=== PATIENT | male | born 1985 | race Caucasian/White ===

== ENCOUNTER 2017-10-11 16:00 | Emergency (ER) | payer OTHER ==
[~2017-10-11] VITALS: Ht 172.7 cm; Wt 102.4 kg
[2017-10-11 16:05] VITALS: Ht 172.7 cm; Wt 102.4 kg
--- NOTE | 2017-10-11 16:28 | EMERGENCY ROOM VISIT NOTE ---
History First contact with patient: 16:08 Chief Complaint: ANKLE PAIN Stated Complaint: LEFT ANKLE INJURY, NON WEIGHT BEARING/PAIN-WC History of Present Illness The patient is a 31 year old male who presents to the Emergency Room with complaints of an injury to his left ankle/foot. The patient reports that he was at work and was pinned under a metal pole. He states that his left leg tucked under him and he now has pain in the left leg. He has minimal pain at rest, but reports increased pain with weightbearing. He describes the pain as sharp and rates it a 5/10. He denies any numbness or weakness. He denies any other injuries. Review of Systems A complete 6 point review of systems was reviewed with the patient with pertinent positives and negatives as per history of present illness. All else were negative. Past Medical/Surgical History Medical Problems: (1) No significant active problems Social History Smoking Status: Never Smoker Alcohol Use: occasionally Housing Status: lives with family Occupation Status: employed Physical Exam Vital Signs Date Time Temp Pulse Resp B/P (MAP) Pulse Ox O2 Delivery O2 Flow Rate FiO2 10/11/17 18:20 37.2 92 20 131/77 97 10/11/17 18:06 92 20 131/77 97 Room Air 10/11/17 16:05 37.2 98 20 146/79 97 Room Air Physical Exam VITALS: Vitals are noted on the nurse's note and reviewed by myself. Vital signs stable. GENERAL: This is a 31-year-old male, in no acute distress, nondiaphoretic, well- developed well-nourished. SKIN: No abrasions or lacerations. MUSCULOSKELETAL: No obvious deformity of the left ankle. There is tenderness to palpation to the lateral aspect of the left ankle. Full range of motion of the ankle. NEURO: Patient was alert and oriented to person place and time. Distal sensation intact. Medical Decision & Procedures ER Provider Diagnostic Interpretation: L ANKLE MIN 3 VIEWS ROUTINE DISCUSSION: The bones and joint spaces appear intact. There is no evidence of fracture, dislocation or bony disease. There is no evidence for soft tissue swelling. IMPRESSION: Negative study. L FOOT MIN 3 VIEWS ROUTINE FINDINGS: No acute fracture, dislocation or significant degenerative changes. No opaque foreign body. Mild soft tissue swelling of the ankle. IMPRESSION: Mild soft tissue swelling without fracture. Medications Administered Medications (Trade) Dose Ordered Sig/Oma Route Start Time Stop Time Status Last Admin Dose Admin Ibuprofen (Motrin Tab) 800 mg NOW STAT PO 10/11/17 17:28 10/11/17 17:29 DC 10/11/17 17:35 800 MG Medical Decision Differential diagnosis includes fracture, contusion, sprain, dislocation, among others. The patient was evaluated as above. X-ray of the left ankle and foot was obtained and read by radiology with no acute findings. Patient was placed in a postoperative shoe and instructed on the use of crutches. Conservative measures were discussed with the patient. He was given information for orthopedic follow-up and I recommended calling them if he does not have significant improvement of his symptoms in the next few days. The patient was agreeable to this treatment plan. He verbalized understanding and was discharged home in good condition. Medication Reconcilliation Current Medication List: was personally reviewed by me Blood Pressure Screening Patient's blood pressure: Elevated blood pressure Blood pressure disposition: Elevated BP felt to be situational Impression Primary Impression: Injury of left foot Departure Information Dispostion Home / Self-Care Condition GOOD Referrals No Doctor, Assigned (PCP) Pancho Simpson D.O. Patient Instructions My [facility] Additional Instructions You have been treated in the Emergency Department for a foot/ankle injury. For pain control, you can use the following kwyv-yuy-caxhwxo medicines (if >12 yo): - Regular strength (325mg/tab) Tylenol (acetaminophen) 2 tabs every 4-6 hours as needed. Do not exceed 12 tablets in a 24 hour period. Avoid taking more than 4 grams (4000 mg) of Tylenol per day. This includes any other sources of acetaminophen you may take on a regular basis. - Regular strength (200 mg/tab) Advil (ibuprofen) 1-2 tabs every 4-6 hours as needed. Do not exceed a dose of 3200 mg per day. If this is a recent injury (<24 hrs), ice can be applied to the area of pain for the first 3 days to help decrease pain and inflammation. Wear the postoperative shoe and use the crutches to keep weight off the foot until you are able to bear weight without any discomfort. Contact orthopedics to schedule a follow-up appointment if you are still having pain/difficulty walking in the next 3-4 days. Return to the Emergency Department if your current symptoms worsen despite treatment course outlined above, or if you develop any of the following symptoms : intractable pain despite aforementioned treatment course or new onset of numbness or tingling of the foot. Problem Qualifiers Primary Impression: Injury of left foot Encounter type: initial encounter Qualified Codes: S99.922A - Unspecified injury of left foot, initial encounter
[2017-10-11] MEDS ORDERED: IBUPROFEN 800 MG TAB PO STA (17:28)
--- NOTE | 2017-10-11 17:35 | DIAGNOSTIC IMAGING REPORT ---
L ANKLE MIN 3 VIEWS ROUTINE CLINICAL HISTORY: left ankle and foot injury trauma. Pain. COMPARISON: None. DISCUSSION: The bones and joint spaces appear intact. There is no evidence of fracture, dislocation or bony disease. There is no evidence for soft tissue swelling. IMPRESSION: Negative study. The above report was generated using voice recognition software. It may contain grammatical, syntax or spelling errors. Electronically signed by: Navi Barrera M.D. 10/11/2017 5:33 PM Dictated Date/Time: 10/11/2017 5:33 PM
--- NOTE | 2017-10-11 17:35 | DIAGNOSTIC IMAGING REPORT ---
L FOOT MIN 3 VIEWS ROUTINE HISTORY: 31 years-old Male left ankle and foot injury acute left foot and ankle pain status post injury COMPARISON: None available TECHNIQUE: 3 views of the left foot FINDINGS: No acute fracture, dislocation or significant degenerative changes. No opaque foreign body. Mild soft tissue swelling of the ankle. IMPRESSION: Mild soft tissue swelling without fracture. The above report was generated using voice recognition software. It may contain grammatical, syntax or spelling errors. Electronically signed by: Hamilton Nogueira M.D. 10/11/2017 5:34 PM Dictated Date/Time: 10/11/2017 5:32 PM
[2017-10-11 18:20] VITALS: BP 131/77; PULSE 92; TEMP 37.2; O2SAT 97
== END 2017-10-11 18:21 | disposition home or self-care (01) ==
LOC: C.EDB 16:02 → C.EDD 18:21
DX: S99.922A Unspecified injury of left foot, initial encounter (principal); W23.1XXA Caught, crushed, jammed, or pinched between stationary objects, initial encounter; Y99.0 Civilian activity done for income or pay

== ENCOUNTER 2023-11-21 13:20 | Inpatient (IN) ==
[2023-11-21 14:40] LABS: Basophils # (auto) 0.04 K/uL (0.00-0.20); Basophils % (auto) 0.4 %; Eosinophils # (auto) 0.05 K/uL (0.00-0.50); Eosinophils % (auto) 0.6 %; Hematocrit (blood only) 44.7 % (42.0-52.0); Hemoglobin 15.3 g/dl (14.0-18.0); Immature Granulocytes # (auto) 0.04 K/uL (0.01-0.20); Immature Granulocytes % (auto) 0.4 %; Lymphocytes # (auto) 1.45 K/uL (1.20-3.40); Lymphocytes % (auto) 16.1 %; Mean Corpuscular Hemoglobin 30.2 pg (25.0-34.0); Mean Corpuscular Hgb Conc 34.2 g/dL (32.0-36.0); Mean Corpuscular Volume 88.2 fL (80.0-100.0); Mean Platelet Volume 9.7 fL (9.4-12.4); Monocytes # (auto) 0.64 K/uL (0.11-0.59); Monocytes % (auto) 7.1 %; Neutrophils # (auto) 6.76 K/uL (1.40-6.50); Neutrophils % (auto) 75.4 %; Platelet Count 292 K/uL (130-400); RDW Coefficient of Variation 12.1 % (11.5-14.5); RDW Standard Deviation 39.1 fL (36.4-46.3); Red Blood Count 5.07 M/uL (4.70-6.10); White Blood Count 8.98 K/ul (4.8-10.8)
[2023-11-21 14:40] LABS: Appearance Urine Clear (Clear); Bilirubin Urine Negative (Negative); Blood Urine Negative (Negative); Color Urine Yellow; Glucose Urine UA Negative (Negative); Ketones Urine Negative (Negative); Leukocyte Esterase Urine Negative (Negative); Nitrite Urine Negative (Negative); Protein Urine Negative (Negative); Specific Gravity Urine 1.007 (1.000-1.030); Urobilinogen Urine Negative (Negative); pH Urine 5.5 (4.5-7.5)
[2023-11-21] MEDS: LORazepam 1 MG TAB SL STA (14:55)
[2023-11-21 14:58] LABS: Albumin Globulin Ratio 1.6 (0.9-2); Albumin Level 4.9 gm/dl (3.4-5.0); BUN Creatinine Ratio 19.1 (10-20); Bilirubin,Total 0.6 mg/dl (0.2-1.0); Calcium 9.9 mg/dl (8.6-10.3); Creatinine Clr Calc Pharmacy 105.4 ml/min; Est GFR (African American) 96.8 ml/min; Est GFR (Non-African American) 83.5 ml/min; Potassium 3.9 mmol/L (3.5-5.1); Total Protein 7.9 gm/dl (6.0-8.3)
[2023-11-21 15:05] LABS: Acetaminophen < 3 ug/ml (10-30); Salicylate < 3.0 mg/dl (3.0-30)
[2023-11-21 15:13] LABS: Thyroid Stimulating Hormone 1.344 uIu/ml (0.300-4.500)
[2023-11-21 15:15] LABS: Amphetamines+Metham, Urine Neg (Neg); Barbiturates, Urine Neg (Neg); Benzodiazepine, Urine Neg (Neg); Cocaine, Urine Neg (Neg); Fentanyl, Urine Neg (Neg); MDMA (Ecstacy), Urine Neg (Neg); Marijuana, Urine Neg (Neg); Methadone, Urine Neg (Neg); Opiate, Urine Neg (Neg); Phencyclidine, Urine Neg (Neg)
--- NOTE | 2023-11-21 15:26 | CT Scan Report ---
CT OF THE HEAD WITHOUT CONTRAST CLINICAL HISTORY: Altered mental status. COMPARISON STUDY: Head CT July 16, 2022. CT DOSE: 625.8 mGy.cm TECHNIQUE: Helical axial images of the head were obtained without IV contrast. Automated exposure con trol was utilized for the study. A dose lowering technique was utilized adhering to the principles o f ALARA. FINDINGS: No acute intracranial hemorrhage, midline shift or mass effect is present. The ventricular system is unremarkable. The basal cisterns are patent. No extra-axial collections are present. There are no findings to suggest acute dural sinus thrombosis or acute territorial infarct. No significant calvarial abnormalities are present. Visualized portions of the sinuses and mastoid air cells are lashonda ar. IMPRESSION: No acute intracranial findings. ACT 112: Negative or not required by law. Electronically signed by: Asaf Blunt M.D. 11/21/2023 3:24 PM
[2023-11-21] MEDS ORDERED: SODIUM CHLORIDE 0.65% NA SOLN 45 ML (OCEAN) PRN (17:53)
[2023-11-21] MEDS ORDERED: BISMUTH SUBSALICYLATE LIQD 236 ML PO PRN (17:53)
[2023-11-21] MEDS ORDERED: ACETAMINOPHEN 325 MG TAB PO PRN (17:53)
[2023-11-21] MEDS ORDERED: MAGNESIUM HYDROXIDE SUSP 30 ML UDC PO PRN (17:53)
[2023-11-21] MEDS ORDERED: hydrOXYzine HCl 25 MG TAB PO PRN ×2 (17:53)
[2023-11-21] MEDS ORDERED: ALUMINUM/MAGNESIUM SUSP 30 ML UDC PO PRN (17:53)
[2023-11-21] MEDS: clonazePAM 0.5 MG TAB PO ONE (21:30)
--- NOTE | 2023-11-21 22:29 | Emergency Department Note ---
History of Present Illness General Chief complaint: Altered Mental Status Stated complaint: UNCONTROLABLE DEPRESSION, MANIC STATE Time Seen by Provider: 11/21/23 14:15 Source: patient and family ( at bedside) History of Present Illness Provider complaint: Anxiety depression 38-year-old male presents emergency department at the request of his mental health daycare provider for chief complaint of anxiety and depression. Patient reports that he has been having increasing anxiety secondary to work and stress at his [employer]. He also reports that his father recently . Patient reports thoughts of self-harm but no actual plan. states symptoms are getting worse over the last 6 months. Patient states he wants to rip his hair out and smashed his head against a wall. Patient has not been eating or sleeping well. Home Medications Medication Instructions Recorded Confirmed Type cetirizine 10 mg tablet 10 mg PO QAM 04/21/18 11/21/23 History dicyclomine 20 mg tablet 20 mg PO TID PRN abdominal 04/21/18 11/21/23 Rx cramping #20 tabs fluticasone propionate 50 1 spray intranasal DAILY PRN 04/21/18 11/21/23 History mcg/actuation nasal Congestion spray,suspension ondansetron 4 mg disintegrating 4 mg PO TID #20 tabs 04/21/18 11/21/23 Rx tablet pantoprazole 40 mg tablet,delayed 40 mg PO QAM 04/21/18 11/21/23 History release aripiprazole 15 mg tablet (Abilify) PO DAILY 11/21/23 History clonazepam PO PM 11/21/23 History escitalopram oxalate PO DAILY 11/21/23 History Allergies Allergy/AdvReac Type Severity Reaction Status Date / Time erythromycin base Allergy Mild . Verified 04/21/18 12:38 Penicillins Allergy Mild . Verified 04/21/18 12:38 Past Med/Surg History Problem List (Updated 11/21/23 @ 22:29 by Mark Kruger MD) Depression with suicidal ideation (Acute) Hernia Acid reflux Medical History No pertinent family history Bipolar disorder Surgical History No pertinent past surgical history Social History Smoking Status: Never smoker Preferred Language: Bolivian Communication Ability: Effective Visual Impairment: No Limitations Hearing Ability: Normal Plaster Molder Required: No Beliefs That Will Affect Care: None Feels Safe at Home: Yes Gender Identity: Male Assistive Devices: Glasses Physical Exam Vital Signs Vital Signs - 24 hr 11/21/23 14:01 Temperature 37 C Temperature Source Temporal Artery Scan Pulse Rate 96 H Respiratory Rate 18 Respiratory Effort / Characteristics Non-Labored Spontaneous Respiratory Depth Normal Respiratory Pattern Regular Blood Pressure 171/105 H Blood Pressure Mean 127 Blood Pressure Position Sitting Pulse Oximetry 99 Oxygen Delivery Method Room Air Sepsis Recent Fever Within 48 Hours No Sepsis New/Unexplained Change in Mental Status N/A Sepsis Action Taken by Nursing No Action Required Physical Exam HENT: Exam performed. - Head: Normocephalic and atraumatic. EYES: Conjunctivae and EOM are normal. Right eye exhibits no discharge. Left eye exhibits no discharge. No scleral icterus. NECK: Normal range of motion. Neck supple. No JVD present. CV: Normal rate, regular rhythm, normal heart sounds and intact distal pulses. There is no peripheral edema. Palpable radial pulses bue. PULM/CHEST: Effort normal and breath sounds normal. No respiratory distress. No stridor. no wheezes. no rales. ABD: The abdomen is soft. There is no tenderness. NEURO: Motor and sensation grossly intact. SKIN: Skin is warm and dry. He is not diaphoretic. PSYCH: Patient appears depressed and anxious. Suicidal ideation. Course Course 1415: The patient was evaluated in room A6. A complete history and physical exam was performed 1800: Patient medically cleared. Accepted to 3 S. Administered Medications Discontinued Medications Clonazepam (Clonazepam 0.5 Mg Tab) 0.5 mg PO ONE ONE Stop: 11/21/23 21:01 Last Admin: 11/21/23 21:30 Dose: 0.5 mg Documented By: ROBBY Lorazepam (Lorazepam 1 Mg Tab) 1 mg SL NOW STA Stop: 11/21/23 14:51 Last Admin: 11/21/23 14:55 Dose: 1 mg Documented By: JANELLE Medical Decision Making Laboratory Data Attestation: I reviewed the patient's lab results. 11/21/23 14:21 11/21/23 14:21 Lab Results 11/21/23 11/21/23 Range/Units 14:12 14:21 WBC 8.98 (4.8-10.8) K/ul RBC 5.07 (4.70-6.10) M/uL Hgb 15.3 (14.0-18.0) g/dl Hct 44.7 (42.0-52.0) % MCV 88.2 (80.0-100.0) fL MCH 30.2 (25.0-34.0) pg MCHC 34.2 (32.0-36.0) g/dL RDW Std Deviation 39.1 (36.4-46.3) fL RDW Coeff of Talisha 12.1 (11.5-14.5) % Plt Count 292 (130-400) K/uL MPV 9.7 (9.4-12.4) fL Immature Gran % (Auto) 0.4 % Neut % (Auto) 75.4 % Lymph % (Auto) 16.1 % [place] % (Auto) 7.1 % Eos % (Auto) 0.6 % Baso % (Auto) 0.4 % Neut # (Auto) 6.76 H (1.40-6.50) K/uL Lymph # (Auto) 1.45 (1.20-3.40) K/uL [place] # (Auto) 0.64 H (0.11-0.59) K/uL Eos # (Auto) 0.05 (0.00-0.50) K/uL Baso # (Auto) 0.04 (0.00-0.20) K/uL Immature Gran # (Auto) 0.04 (0.01-0.20) K/uL Sodium 139 (136-145) mmol/L Potassium 3.9 (3.5-5.1) mmol/L Chloride 105 (98-107) mmol/L Carbon Dioxide 28 (21-32) mmol/L Anion Gap 6 (3-11) BUN 21 (6-23) mg/dl Creatinine 1.10 (0.6-1.4) mg/dl Est Cr Clr Drug Dosing 105.4 ml/min Est GFR ( Amer) 96.8 ml/min Est GFR (Non-Af Amer) 83.5 ml/min BUN/Creatinine Ratio 19.1 (10-20) Glucose 95 (70-99(Fasting)) mg/dl Calcium 9.9 (8.6-10.3) mg/dl Total Bilirubin 0.6 (0.2-1.0) mg/dl AST 20 (13-39) U/L ALT 24 (7-52) U/L Alkaline Phosphatase 60 (34-104) U/L Total Protein 7.9 (6.0-8.3) gm/dl Albumin 4.9 (3.4-5.0) gm/dl Globulin 3.0 (2.5-4.0) gm/dl Albumin/Globulin Ratio 1.6 (0.9-2) TSH 1.344 (0.300-4.500) uIu/ml Urine Color Yellow Urine Appearance Clear (Clear) Urine pH 5.5 (4.5-7.5) Ur Specific [place] 1.007 (1.000-1.030) Urine Protein Negative (Negative) Urine Glucose (UA) Negative (Negative) Urine Ketones Negative (Negative) Urine Blood Negative (Negative) Urine Nitrite Negative (Negative) Urine Bilirubin Negative (Negative) Urine Urobilinogen Negative (Negative) Ur Leukocyte Esterase Negative (Negative) Salicylates < 3.0 L (3.0-30) mg/dl Urine Opiates Screen Neg (Neg) Ur Methadone, Qual Neg (Neg) Urine Fentanyl Screen Neg (Neg) Acetaminophen < 3 L (10-30) ug/ml Urine Barbiturates Neg (Neg) Ur Phencyclidine (PCP) Neg (Neg) U Amphetamin/Meth Scrn Neg (Neg) MDMA (Ecstasy) Screen Neg (Neg) U Benzodiazepines Scrn Neg (Neg) Ur Cocaine Metabolite Neg (Neg) U Marijuana (THC) Screen Neg (Neg) Ethyl Alcohol mg/dL < 10.0 (<10.0) mg/dl SARS-CoV-2, RNA, NAAT NEGATIVE (NEGATIVE) Imaging Data Radiologist's Impression: Head CT 11/21/23 14:28 CT OF THE HEAD WITHOUT CONTRAST CLINICAL HISTORY: Altered mental status. COMPARISON STUDY: Head CT July 16, 2022. CT DOSE: 625.8 mGy.cm TECHNIQUE: Helical axial images of the head were obtained without IV contrast. Automated exposure control was utilized for the study. A dose lowering technique was utilized adhering to the principles of ALARA. FINDINGS: No acute intracranial hemorrhage, midline shift or mass effect is present. The ventricular system is unremarkable. The basal cisterns are patent. No extra-axial collections are present. There are no findings to suggest acute dural sinus thrombosis or acute territorial infarct. No significant calvarial abnormalities are present. Visualized portions of the sinuses and mastoid air cells are clear. IMPRESSION: No acute intracranial findings. ACT 112: Negative or not required by law. Electronically signed by: Asaf Blunt M.D. 11/21/2023 3:24 PM [facility] Narrative 1415: The patient was evaluated in room A6. A complete history and physical exam was performed 1800: Patient medically cleared. Accepted to 3 S. Impression & Plan Depression with suicidal ideation Discharge Plan Visit Data Chief Complaint: Altered Mental Status Stated Complaint: UNCONTROLABLE DEPRESSION, MANIC STATE ED Provider: Mark Kruger Discharge Problem: Depression with suicidal ideation Patient Disposition: Admitted As Inpatient Discharge Instructions Interventions: ED Discharge Assessment Last Done: 11/21/23 18:45
--- OUTSIDE RECORDS SUMMARY | 2023-11-21 23:27 | External Medical Summary | Summary of Care ---
Author Name Unknown Organization [facility] Address [address] [place] [address] Phone [phone] Care Team Providers Care Hazardous Materials Waste Technician Name Role Phone Sophia Murillo Primary Care Provider Reason for Visit * Reason Onset Date Comments Medication Refill 10/24/2023 Encounter Details Date Type Department Care Team (Late st Contact Info) Description 10/24/2023 Refill [facility] [address], [place] [id number] Binu Caballero MD [address] [place] [address] Allergies Active Allergy Reactions Criticality Noted Date Comments Erythromycin 08/07/1997 gi upset Penicillin G 08/07/1997 rash documented as of this encounter (statuses as of 10/24/2023) Medications Medication Sig Dispensed Refills Start Date End Date Status Multivitamin Adult Oral Tablet Take by mouth. 0 Active Acetaminophen 325 MG Oral Tablet (Tylenol) Take 3 Tablets by mouth every 8 hours. 30 Tablet 0 05/14/2021 Active Fluticasone Propionate 50 MCG/ACT Nasal Suspension (Flonase) Administer 1 Vilas into nostril as needed for Rhinitis. 48 g 1 03/01/2023 Active Pantoprazole Sodium 20 MG Oral Tablet Delayed Release (Protonix) Take 1 Tablet by mouth in the morning. 90 Tablet 3 06/10/2023 Active clonazePAM 0.5 MG Oral Tablet (KlonoPIN)Indicatio ns:SYEDA (generalized anxiety disorder) Take 1 Tablet by mouth 3 times a day as needed for Anxiety. 30 Tablet 0 10/19/2023 Active Cetirizine HCl 10 MG Oral Tablet (ZyrTEC)Indications :Seasonal allergies TAKE ONE TABLET BY MOUTH EVERY MORNING 90 Tablet 3 10/18/2023 Active ARIPiprazole 10 MG Oral Tablet (Abilify) Take 1 Tablet by mouth in the morning. 30 Tablet 5 10/21/2023 Active hydrOXYzine HCl 25 MG Oral Tablet Take 1 Tablet by mouth 3 times a day as needed for Anxiety. 90 Tablet 5 10/24/2023 Active documented as of this encounter (statuses as of 10/24/2023) Active Problems Problem Noted Date Diagnosed Date Other mixed anxiety disorders 09/28/2023 Mood disorder 09/28/2023 Obesity, Class II, BMI 35-39.9, isolated (see ac tual BMI) 05/14/2021 No transfusions per christian beliefs 05/12/2021 Hiatal hernia with gastroesophageal reflux 05/15 Seasonal allergies 05/15/2014 documented as of this encounter (statuses as of 10/24/2023) Resolved Problems Problem Noted Date Diagnosed Date Resolved Date NO SIGNIFICANT MED HX 2013 documented as of this encounter (statuses as of 10/24/2023) Immunizations Name Administration Dates Next Due COVID-19 mRNA, LNP-s, No Pre serve, 2-Dose Series ([facility]) 09/02/2020,08/12/2020 COVID-19, LNP-s, No Preserve , [place]-sucrose, Ages 12+ (Pfizer) 04/24/2021 Covid-19, Mrna, Lnp-s, Pf, Bivalent, 30 Mcg, IM, 12 yrs and above (Pfizer) 03/12/2022 Seasonal Influenza, PF, 6 M & above, IM , (FluLaval or Fluzone) 03/29/2022,03/14/2021,03/01/2020, 019 TDAP (age 10 and older)(Boostrix) 05/15/2014 05/15/2024 documented as of this encounter Social History Tobacco Use Types Packs/Day Years Used Date Smoking Tobacco: Never Passive Smoke Exposure: Never Smokeless Tobacco: Never Alcohol Use Standard Drinks/Week Comments Yes 0 (1 standard drink = 0.6 oz pur e alcohol) recently 3-4 beers a day. PHQ-2 Answer Date Recorded PHQ Adult Total Score 13 09/14/2023 Hunger Vital Sign Answer Date Recorded Within the past 12 months, y ou worried that your food would run out before you got the money to buy more. Patient declined Within the past 12 months, t he food you bought just didn't last and you didn't have money to get more. Patient declined Education Answer Date Recorded What is the highest level of school you have completed or the highest degree you have received? High school graduate 09/14/2023 Sex and Gender Information Value Date Recorded Sex Assigned at Male 09/13/2018 6:20 PM EDT Gender Identity Male 09/13/2018 6:20 PM EDT Sexual Orientation Straight 09/13/2018 6: 20 PM EDT Job Start Date Occupation Industry Not on file Not on file Not on file documented as of this encounter Plan of Treatment Upcoming Encounters Date Type Department Care Team (Late st Contact Info) Description 12/02/2023 6:00 PM EDT Telemedicine Psychiatry [facility] [address] [place] [id number] Binu Caballero MD [address] [place] [address] 02/16/2024 9:00 AM EDT Telemedicine Psychiatry, [facility] [address] [place] [address] Grace Rey CRNP [address] [facility] [place] [id number] Health Maintenance Due Date Last Done Comments COVID-19 Vaccine ( season) 2023 03/12/2022, 04/24/2021, 09/02/2020, Additional history exists Depression, Most Recent Score >= 10 (will fire each visit until score < 10) 09/15/2023 09/14/2023 Influenza Vaccine (FLU shot) (Season Ended) 2024 03/29/2022, 03/14/2021, 03/01/2020, Additional history exists Diabetes Screening 05/14/2024 05/14/2021, 1 07/15/2020, 01/23/2021, Additional history exists DTaP,Tdap,and Td Vaccines (6 - Td or Tdap) 05/15/2024 05/15/2014, 06/09/1998, 04/21/1989, Additional history exists Hepatitis B Completed 12/22/1998, 05/14, 05/05/1998 GARDASIL-HPV IMMUNIZATION SERIES Aged Out No longer eligible based on patient's age to complete this topic HIV Screening Discontinued Hepatitis C Screening Discontinued MENINGOCOCCAL (MENACTRA/MENVEO) Aged Out No longer eligible based on patient's age to complete this topic Pneumococcal Vaccine: Pediatrics (0 to 5 Years) and At-Risk Patients (6 to 64 Years) Aged Out No longer eligible based on patient's age to complete this topic documented as of this encounter Medical Devices Not on filedocumented as of this encounter Advance Directives Documents on File Type Date Recorded Patient Cardroom Manager Expl anation Power of Composition Molder 05/15/2021 POWER OF A TTORNEY Latest Code Status on File Code Status Date Activated Date Inactivated Comments Full Code 06/18/2022 11:44 AM 06/18/2022 7:11 PM This o rder reflects the patients wishes and were consensually agreed upon. Question Answer Comments Discussion of Advance Directives occurred with: Patient Code Status History Code Status Date Activated Date Inactivated Comments Full Code 06/18/2022 11:41 AM 06/18/2022 11:44 AM This order reflects the patients wishes and were consensually agreed upon. Question Answer Comments Discussion of Advance Directives occurred with: Patient Full Code 05/14/2021 7:29 AM 05/15/2021 12:23 AM Question Answer Comments Discussion of Advance Directives occurred with: Not Discussed Does the patient have a Living Will? No Does the patient have Health Care Power of Composition Molder? No Care Teams Hazardous Materials Waste Technician Relationship Specialty Start Date End Date Sophia Murillo DO [address] [place] [address] PCP - General Family Medicine 12/02/13 documented as of this encounter
--- OUTSIDE RECORDS SUMMARY | 2023-11-21 23:27 | External Medical Summary | Summary of Care ---
Author Name Unknown Organization [facility] Address [address] [place] [address] Phone [phone] Care Team Providers Care Call Center Analyst Name Role Phone Sophia Murillo Primary Care Provider [phone] Reason for Visit * Reason Comments Evaluation Psychiatric * - Authorized Specialty Diagnoses / Procedures Referred By Adams peña Referred To Contact Referral ID Status Reason Start Date Expiration Date V isits Requested Visits Authorized [id number] Authorized 09/12/2023 09/10/[phone] Encounter Details Date Type Department Care Team (Late st Contact Info) Description 09/28/2023 1:00 PM EDT [facility] [address] [place] [address] Binu Caballero MD [address] [place] [address] Mood disorder (HCC)*; Other mixed anxiety disorders Allergies Active Allergy Reactions Criticality Noted Date Comments Erythromycin 08/07/1997 gi upset Penicillin G 08/07/1997 rash documented as of this encounter (statuses as of 09/28/2023) Medications Medication Sig Dispensed Refills Start Date End Date Status Multivitamin Adult Oral Tablet Take by mouth. 0 Active Acetaminophen 325 MG Oral Tablet (Tylenol) Take 3 Tablets by mouth every 8 hours. 30 Tablet 0 05/14/2021 Active Fluticasone Propionate 50 MCG/ACT Nasal Suspension (Flonase) Administer 1 [place] into nostril as needed for Rhinitis. 48 g 1 03/01/2023 Active busPIRone HCl 10 MG Oral Tablet (Buspar)Indicati ons:KERMIT (generalized anxiety disorder) Take 1 Tablet by mouth 2 times a day as needed for Anxiety. 40 Tablet 5 06/10/2023 Active Pantoprazole Sodium 20 MG Oral Tablet Delayed Release (Protonix) Take 1 Tablet by mouth in the morning. 90 Tablet 3 06/10/2023 Active Cetirizine HCl 10 MG Oral Tablet (ZyrTEC)Indicati ons:Seasonal allergies TAKE ONE TABLET BY MOUTH EVERY MORNING 90 Tablet 0 07/19/2023 07/18/2024 Active clonazePAM 0.5 MG Oral Tablet (KlonoPIN)Indica tions:KERMIT (generalized anxiety disorder) Take 1 Tablet by mouth 3 times a day as needed for Anxiety. 30 Tablet 0 09/21/2023 Active ARIPiprazole 5 MG Oral Tablet (Abilify) Take 1 Tablet by mouth in the morning. 30 Tablet 5 09/28/2023 Active Venlafaxine HCl ER 37.5 MG Oral Capsule Extended Release 24 Hour (Effexor XR) Take 1 Capsule by mouth in the morning. Do not cut, crush or chew. 30 Capsule 5 09/19/2023 09/28/2023 Discontinue d(Adverse reaction) documented as of this encounter (statuses as of 09/28/2023) Active Problems Problem Noted Date Diagnosed Date Other mixed anxiety disorders 09/28/2023 Mood disorder 09/28/2023 Obesity, Class II, BMI 35-39.9, isolated (see ac tual BMI) 05/14/2021 No transfusions per uatsdin beliefs 05/12/2021 Hiatal hernia with gastroesophageal reflux 05/15 Seasonal allergies 05/15/2014 documented as of this encounter (statuses as of 09/28/2023) Resolved Problems Problem Noted Date Diagnosed Date Resolved Date NO SIGNIFICANT MED HX 2013 documented as of this encounter (statuses as of 09/28/2023) Immunizations Name Administration Dates Next Due COVID-19 mRNA, LNP-s, No Pre serve, 2-Dose Series ([employer]) 09/02/2020,08/12/2020 COVID-19, LNP-s, No Preserve , [place]-sucrose, [...] on file documented as of this encounter Patient Instructions * Patient Instructions* Binu Caballero MD - 09/28/2023 6:01 PM EDT Discontinue venlafaxine Decrease clonazepam to 0.5 - 1 mg a night for sleep (from three times a day as needed) Start Abilify 2.5 mg a day for 1 week, then increase to 5 mg a day if well tolerated Acute care follow-up appointment scheduled for 10/21/2023 documented in this encounter Progress Notes * Binu Caballero MD - 09/28/2023 1:12 PM EDT OUTPATIENT PSYCHIATRY URGENT CARE NOTE DIVISION OF PSYCHIATRY [address] [address] Name: Jesse Paredes Date Patient was Seen: 09/28/2023 Patient location: HOME. I was not in a hospital or clinic location. After connecting through televideo, patient was verified with two unique identifiers. Patient (or authorized legal commercial pest control representative) was then informed that this was a Telemedicine visit and being conducted confidentially over secure lines. Methods to assure confidentiality were taken. Patient acknowledged consent and understanding of privacy and security of the Telemedicine visit. The patient agreed to participate. Portions of this record may have been dictated using voice recognition software. Variations in spelling and in vocabulary are possible and unintentional. Some errors may not be recognized or corrected at time of dictation. URGENT CARE ENCOUNTER: Pt was informed that they are being seen on an urgent basis and that therefore today's appointment would be focused on their current primary concern, with the goal of achievingrapid assessment and relief of current crisis or distress if possible. Pt agreed to proceed under this format. CHIEF COMPLAINT: "anxiety" REFERRED BY: Self HISTORY OF PRESENT ILLNESS: Jesse Paredes is a 37 year old male with PPX of PTSD seen today for urgent psychiatric care withprimary concern of worsening mood and poor response to interventions thus far. Reports PCP diagnosed him with PTSD, "everything started after father from leukemia, unexpectedly", which happened in 04/2020. This immediately preceded current symptoms. Has nightmares during which he is running away, occurring 4-5 nights a week prior to starting clonazepam, now once every two weeks. The pt reports "I have severe anxiety", which causes him to feel "overwhelmed, unable to work". Had been using alcohol "to deal with it". Constantly feels "stressed out", restless, feels needto keep busy or other times "can't get off the couch". Worrying excessively "sometimes", no major stressors. Self employed with general operator business. At times feels he can't "process tasks needed", "lack of desire to do things". Often feels irritable, prefers to be left alone. Feels depressed, less enjoyment in life, doesn't like socializing. Started on Effexor in June, dose increased to 75 mg on 08/22/23. "Didn't feel right", was at workand couldn't stop himself from doing the task he was doing, set multiple alarms to remind him to stop but felt urge to continue working, called telling her he couldn't stop. Another time was coloring for relaxation but couldn't stop himself from continuing in order to go to a scheduled event. At one point drove home and sat in truck for 1.5 hrs, couldn't get him to go in the house. Wifedescribes him as being out of it. Started talking about suicide, feeling guilt, that "I don'tdeserve to be here", then didn't recall what he had said. describes incident when patient "Was smashing head with thermos because he wanted the thoughts to go away". Another time started banginghead on wall, became very angry when stopped him. Doesn't have a good explanation for the above behavior, "didn't want to exist", behavior is very out of character for him. They then informed PCP and dose was decreased, with the above resolving. Sleep is restless, often waking 2-4 hours before his alarm, at least once a week, has happened up to 4 times a week. Won't feel tired the next day, "so anxious, like I'm running on adrenaline". Hasn't been more impulsive. No racing thoughts. No increased grandiosity. No increased religiosity, at baseline is uatsdin. Stopped drinking etoh 07/08/23, but with 3-4 brief relapses since then. Stopped drinking after PCP and told him to cut back on alcohol. Prior to this was drinking 3-4 beers, or 3-4 shots of whiskey, or combo every night, Had this pattern of drinking for about 1 yr start. Drinking had been escalating since father passed. Pt denies current or recent active or passive suicidal ideation. Denies experiencing any current orrecent AVH, paranoia, and no other delusions endorsed. No signs or symptoms suggesting the presenceof kevin or psychosis present on exam today. Psychiatric ROS non-contributory except for the above. PAST PSYCHIATRIC HISTORY: First received care around 2020 after father Raised by biological parents, "especially close to my dad", doesn't get along with mother. No fam h/o substance use Paternal GM - panic attacks Father - depression/anxiety PAST HOSPITALIZATIONS: denies PAST MEDICATION TRIALS: Zoloft up to 100mg - felt it was effective, switched by PCP to effexor due to continued etoh use with the thought that Effexor may decrease his use CURRENT MEDICATION: Effexor 37.5 - was on 75 mg last month which caused increased depression, "to the point I was suicidal", after 2 weeks on 75, occurred last month Clonazepam 0.5mg tid but pt taking qhs, rarely taking extra 0.25mg for sleep Buspirone 10 once a day HISTORY OF SELF HARMING: hitting self recently CURRENT SUICIDAL IDEATION: denies PAST SUICIDAL IDEATION: yes, passive PAST SUICIDE ATTEMPTS: denies ACCESS TO FIREARMS: yes, The pt reports keeping guns locked and unloaded, not in the home, but has access to them, keeps in shop he shares with BRAD. Educated the pt about risks of keeping guns in thehome, including increasing the risk of suicide. Encouraged the pt to give up access to their firearms at least for the time being. Pt expressed understanding, they have no current safety concerns, but agree to look into giving up firearm access. will speak with father. CURRENT OR PAST ETOH AND/OR SUBSTANCE ABUSE: Etoh, sober since June 2023, previly drinking dailyfor af ew years. Past Medical History: Diagnosis Date History of hernia surgery 2020 Lipoma 2022 Seasonal allergies Varicella without complication ALLERGIES: Erythromycin and Penicillin g CURRENT MEDICATIONS: Current Outpatient Medications Medication Sig Dispense Refill ARIPiprazole 5 MG Oral Tablet (Abilify) Take 1 Tablet by mouth in the morning. 30 Tablet 5 Multivitamin Adult Oral Tablet Take by mouth. Acetaminophen 325 MG Oral Tablet (Tylenol) Take 3 Tablets by mouth every 8 hours. 30 Tablet 0 Fluticasone Propionate 50 MCG/ACT Nasal Suspension (Flonase) Administer 1 [place] into nostril as needed for Rhinitis. 48 g 1 busPIRone HCl 10 MG Oral Tablet (Buspar) Take 1 Tablet by mouth 2 times a day as needed for Anxiety. 40 Tablet 5 Pantoprazole Sodium 20 MG Oral Tablet Delayed Release (Protonix) Take 1 Tablet by mouth in the morning. 90 Tablet 3 Cetirizine HCl 10 MG Oral Tablet (ZyrTEC) TAKE ONE TABLET BY MOUTH EVERY MORNING 90 Tablet 0 clonazePAM 0.5 MG Oral Tablet (KlonoPIN) Take 1 Tablet by mouth 3 times a day as needed for Anxiety. 30 Tablet 0 No current facility-administered medications for this visit. Review of patient's allergies indicates: Allergen Reactions Erythromycin gi upset Penicillin G rash Current Outpatient Medications Medication Sig Dispense Refill ARIPiprazole 5 MG Oral Tablet (Abilify) Take 1 Tablet by mouth in the morning. 30 Tablet 5 Multivitamin Adult Oral Tablet Take by mouth. Acetaminophen 325 MG Oral Tablet (Tylenol) Take 3 Tablets by mouth every 8 hours. 30 Tablet 0 Fluticasone Propionate 50 MCG/ACT Nasal Suspension (Flonase) Administer 1 [place] into nostril as needed for Rhinitis. 48 g 1 busPIRone HCl 10 MG Oral Tablet (Buspar) Take 1 Tablet by mouth 2 times a day as needed for Anxiety. 40 Tablet 5 Pantoprazole Sodium 20 MG Oral Tablet Delayed Release (Protonix) Take 1 Tablet by mouth in the morning. 90 Tablet 3 Cetirizine HCl 10 MG Oral Tablet (ZyrTEC) TAKE ONE TABLET BY MOUTH EVERY MORNING 90 Tablet 0 clonazePAM 0.5 MG Oral Tablet (KlonoPIN) Take 1 Tablet by mouth 3 times a day as needed for Anxiety. 30 Tablet 0 No current facility-administered medications for this visit. No medication comments found. There were no vitals filed for this visit. Wt Readings from Last 3 Encounters: 09/07/23 107 kg (236 lb) 06/10/23 106.1 kg (234 lb) 09/27/22 104.3 kg (230 lb) There is no height or weight on file to calculate BMI. RECENT LABS/IMAGING: No results found for this or any previous visit (from the past 2016 hour(s)). MEDICAL REVIEW OF SYSTEMS: No CP or SOB. All other systems reviewed and are negative or non-contributory. MENTAL STATUS EVALUATION: Appearance: age-appropriate and casually dressed Muscle strength and tone: Unable to assess via tele-medicine encounter Gait: Not observed via tele-medicine encounter Motor: No significant psychomotor agitation or retardation, no hyperactivity noted. No evidence of tics, tardive dyskinesia or abnormal muscle movements. Behavior: calm, cooperative, and appropriate Eye contact: good Speech: normal in rate, rhythm, tone, and volume Mood: "anxious, depressed" Affect: type - euthymic; range - constricted non-labile, related Thought Process: logical, linear, and goal directed Thought Content: denies suicidal ideations, homicidal ideations, auditory hallucinations, visual hallucinations, delusions, impulsivity to act out or preoccupation with violence Level of Consciousness and orientation: alert, oriented to time, place, person Attention: appropriate for conversation Recent and remote memory as evidenced by recall of recent circumstances and remote life events: intact Fund of knowledge as evidenced by vocabulary and current/historical events: intact Insight: good, based on recognition and understanding of mental illness and need for treatment Judgement: good based on understanding of life event [place] Suicide Severity Rating Scale Results 09/28/2023 18:00 [place] SUICIDE SEVERITY RATING SCALE (C-SSRS) Have you wished you were or wished you could go to sleep and not wake up? (In the Past Month or Since Last Visit) Yes Have you had any actual thoughts of killing yourself? (In the Past Month or Since Last Visit) No Have you been thinking about how you might do this? (In the Past Month or Since Last Visit) No Have you had thoughts and had some intention of acting on them? (In the Past Month or Since Last Visit) No Have you started to work out or worked out the details of how to kill yourself? Do you intend to carry out this plan? (In the Past Month or Since Last Visit) No Have you ever done anything, started to do anything, or prepared to do anything to end your life? (Lifetime) No Was this within the past 3 months? No Level of Risk Low [facility] Safety Plan Completed: no RISK ASSESSMENT Suicide/Homicidal Ideation/Plan/Intent: Acute Risk Factors: current mood and anxiety symptoms and access to lethal means Chronic Risk Factors: male gender, , and h/o mood/anxiety disorder Protective factors: devoted to family, child and/or pet, support from family, sense of purpose, current desire to engage in services, future focused thinking, has safety plan, and Synagogue practices Homicidal: Denies Formulation: Based on these risk and protective factors, this patient's safety risk is assessed to be minimal atthis time. Pt is future oriented, help seeking, convincingly contracts for safety, and able to effectively participate in treatment planning including what to do in a crisis. THERAPEUTIC STRATEGIES UTILIZED: Supportive listening Psychoeducation DIAGNOSIS: ICD-10-CM 1. Mood disorder (HCC) F39 2. Other mixed anxiety disorders F41.3 Assessment: Jesse Paredes presents due to worsening anxiety over the past few years following sudden unexpected of father. Patient endorses mixed anxiety disorder with features of kermit, panic, and possible PTSD symptoms. Not responding to intervention by PCP. There is some suspicion for undiagnosed bipolar disorder as patient describes experiencing possible mixed episode when started on Effexor recently. After dose titration patient was not himself, had increased goal-directed activity,at times extremely irritable, auto aggressive, with worsening depression and SI, symptoms receded after dose was decreased. Unclear what role escalating alcohol use over the past few years is playingin current presentation, although patient was able to temper his alcohol use over the past few months, but no improvement in symptoms despite this. We will initially start patient on Abilify for moodstabilization. Given severity of symptoms will follow closely through acute care clinic until patient's condition stabilizes or they establish longitudinal psychiatric care. Patient Instructions Discontinue venlafaxine Decrease clonazepam to 0.5 - 1 mg a night for sleep (from three times a day as needed) Start Abilify 2.5 mg a day for 1 week, then increase to 5 mg a day if well tolerated Acute care follow-up appointment scheduled for 10/21/2023 RTC: Urgent care PRN Treatment options and alternatives reviewed with patient who agrees with the above plan. Information about current medications was provided to the patient including reasons why medications are being used. Patient understood the risks, benefits, side-effects, and potential complications associated with changes in medications being proposed (both medications being started and medications being discontinued or having dose changed). Patient is making an informed medical decision to follow the recommendations outlined in this note. Directed pt to call with any questions or concerns, worsening symptoms and/or ask for earlier appointment. Jesse Paredes participated in developing a crisis plan should he/she experience worsening of symptoms before next follow-up appointment, including being aware of what resources to use according tothe urgency and severity of symptoms. Jesse Paredes was able to verbalize understanding of the steps necessary to obtain help between appointments should be needed, from requesting a phone call, to requesting an appointment sooner, including reaching clinic after hours, or accessing emergency mental health and medical services, either at a local emergency department or by activating mobile crisis teams and EMS. Risk assessment was performed. This is a patient being treated for chronic mental health conditionsand/or substance use disorder as characterized above; at the time of this visit, there was no indication that this patient was either a direct risk to self, others, or gravely disabled by symptoms ofa mental illness or substance use disorder. PT is able to effectively participate in treatment and crisis planning. At the time of this evaluation, there were enough protective factors in place and it was deemed safe to continue with treatment on a outpatient basis with return to clinic in the timeframe described below. The patient was instructed to schedule an earlier appointment or reach out toother mental health resources available if they should experience new or worsening symptoms placingthem or others at risk of harm. Time Spent on Visit: 60 minutes - including preparing to see the patient, reviewing history, performing evaluation, counseling/educating patient, ordering medications/tests, documenting clinical information. Please note >17 minutes of counseling time over and above medication management was spent with patient discussing self care and providing supportive therapy Treatment plan reviewed with the patient. Patient voices understanding and concurs with plan. National Suicide Prevention Lifeline : 988 Crisis Textline : Text "HOME" to 038603 to connect with a crisis counselor Crisis Numbers by [facility]: [place] [facility] - Emergency Services [facility] (-7-YOU CAN) re:solve Crisis Network [facility] . [facility] - Crisis Intervention [place] [facility] Crisis Help-Line [facility] - Crisis Intervention [facility] Service Access [place], [employer]. - Crisis Intervention Blanket Choose option 1 - [facility] of Delivery Table Operator Khoa Jimenez & José Miguel Crisis Intervention Anton [place] - Mental Health Crisis Wil[facility] - Crisis Intervention Justin [facility] - Crisis Intervention Attila [facility] - Crisis Line Willie Gee Pike - Mental Health Crisis Hotline [place] [facility] - Crisis Services Ferron [facility] Service Access Duolingo. - Crisis Intervention Karina - Mental Health Crisis Intervention Services [facility] MH/ID Program Manuel Elissa, Jaelyn, Marybeth - Crisis System [facility] - Crisis Hotline [facility] (7-195-737-HELP) [facility] - Crisis Intervention [facility] - Crisis Intervention [facility] - Crisis Services Jose [facility] Health - Crisis Center [place] [phone] [facility] - Crisis Hotline Katey (8:30 am-5:00 pm) OR (after 5:00 pm, weekends & holidays) Stevie [facility] Crisis Intervention Program [place] [facility] - Mental Health Crisis Line Ry Springer and Kerry - [facility] Crisis Jason & Wander [facility] - Crisis Intervention [facility] - Mental Health Crisis Service [facility] - Crisis Intervention [facility] - Crisis Intervention [place] [facility] - Help Line [facility] MH/ID Program Larissa [facility] - Crisis Intervention [facility] - Crisis Intervention [place] [facility], [facility] - Crisis Intervention [place] [facility] Health - Emergency Services Wheeler [facility] - Crisis Line [place] - [facility] - Suicide and Crisis Intervention Hotline [facility] - Crisis/ Emergency Services [facility] - Emergency Contact Line [facility] - Crisis Line [place] ext. 1 [facility] Human Services [facility] Action - Crisis Intervention Hotline [facility] Crisis Intervention Services Binu Caballero MD [facility] [phone] 09/28/2023 6:23 PM documented in this encounter Plan of Treatment Upcoming Encounters Date Type Department Care Team (Late st Contact Info) Description 10/21/2023 6:30 PM EDT Telemedicine Psychiatry, Mark Anthony [address] [facility] [address] Binu Caballero MD [address] [place] [address] 02/16/2024 9:00 AM EDT Telemedicine Psychiatry, Pete Moore [address] [place] [address] Grace Rey CRNP [address] [place] [address] Health Maintenance Due Date Last Done Comments [...] Not on filedocumented as of this encounter Visit Diagnoses Diagnosis Mood disorder (HCC)- Primary Unspecified episodic mood disorder Other mixed anxiety disorders documented in this encounter Advance Directives Documents on File Type Date Recorded Patient Junior Linux Systems Administrator Expl anation Power of Campaign Worker 05/15/2021 POWER OF A TTORNEY Latest Code [...] the patient have Health Care Power of Campaign Worker? No Care Teams Call Center Analyst Relationship Specialty Start Date End Date Sophia Murillo DO [address] [facility] [place] [address] PCP - General Family Medicine 12/02/13 documented as of this encounter
--- OUTSIDE RECORDS SUMMARY | 2023-11-21 23:27 | External Medical Summary | Summary of Care ---
Author Name Unknown Organization [facility] Address [address] [place] [address] Phone [phone] Care Team Providers Care Acid Dumper Name Role Phone Timur Hall DO Primary Care Provider + [phone] Reason for Visit * Reason Comments Medication Refill Encounter Details Date Type Department Care Team (Late st Contact Info) Description 07/19/2023 Refill [facility] [address] [place] [address] Timur Hall DO [address] [place] [address] Encounter for long-term (current) use of medications*; Seasonal allergies Allergies Active Allergy Reactions Criticality Noted Date Comments Erythromycin 08/07/1997 gi upset Penicillin G 08/07/1997 rash documented as of this encounter (statuses as of 07/19/2023) Medications Medication Sig Dispensed Refills Start Date End Date Status Multivitamin Adult Oral Tablet Take by mouth. 0 Active Acetaminophen 325 MG Oral Tablet (Tylenol) Take 3 Tablets by mouth every 8 hours. 30 Tablet 0 05/14/2021 Active Fluticasone Propionate 50 MCG/ACT Nasal Suspension (Flonase) Administer 1 [place] into nostril as needed for Rhinitis. 48 g 1 03/01/2023 Active busPIRone HCl 10 MG Oral Tablet (Buspar)Indicati ons:SYEDA (generalized anxiety disorder) Take 1 Tablet by mouth 2 times a day as needed for Anxiety. 40 Tablet 5 06/10/2023 Active Venlafaxine HCl ER 37.5 MG Oral Capsule Extended Release 24 Hour (Effexor XR)Indications:G AD (generalized anxiety disorder) Take 1 Capsule by mouth in the morning. Do not cut, crush or chew. 90 Capsule 5 06/10/2023 Active Pantoprazole Sodium 20 MG Oral Tablet Delayed Release (Protonix) Take 1 Tablet by mouth in the morning. 90 Tablet 3 06/10/2023 Active clonazePAM 0.5 MG Oral Tablet (KlonoPIN)Indica tions:SYEDA (generalized anxiety disorder) Take 1 Tablet by mouth 3 times a day as needed for Anxiety. 30 Tablet 0 06/24/2023 Active Cetirizine HCl 10 MG Oral Tablet (ZyrTEC)Indicati ons:Seasonal allergies TAKE ONE TABLET BY MOUTH EVERY MORNING 90 Tablet 0 07/19/2023 07/18/2024 Active Cetirizine HCl 10 MG Oral Tablet (ZyrTEC)Indicati ons:Seasonal allergies TAKE ONE TABLET BY MOUTH EVERY MORNING 90 Tablet 3 08/09/2022 07/19/2023 Discontinue d(Refill) documented as of this encounter (statuses as of 07/19/2023) Active Problems Problem Noted Date Diagnosed Date Obesity, Class II, BMI 35-39.9, isolated (see ac tual BMI) 05/14/2021 No transfusions per mu-ism beliefs 05/12/2021 Hiatal hernia with gastroesophageal reflux 05/15 Seasonal allergies 05/15/2014 documented as of this encounter (statuses as of 07/19/2023) Resolved Problems Problem Noted Date Diagnosed Date Resolved Date NO SIGNIFICANT MED HX 2013 documented as of this encounter (statuses as of 07/19/2023) Immunizations Name Administration Dates Next Due COVID-19 mRNA, LNP-s, No Pre serve, 2-Dose Series ([employer]) 09/02/2020,08/12/2020 COVID-19, LNP-s, No Preserve , Guanaco-sucrose, [...] drink = 0.6 oz pur e alcohol) social alcohol. PHQ-2 Answer Date Recorded PHQ-2 Score 0 04/19/2018 Sex and Gender Information Value Date Recorded Sex Assigned at Male 09/13/2018 6:20 PM EDT Gender Identity Male 09/13/2018 6:20 PM EDT Sexual Orientation Straight 09/13/2018 6: 20 PM EDT Job Start Date Occupation Industry Not on file Not on file Not on file documented as of this encounter Miscellaneous Notes * Telephone Encounter - Jerad Segovia RPh - 07/19/2023 3:16 PM EST Signed Prescriptions: Disp Refills Cetirizine HCl 10 MG Oral Tablet (ZyrTEC) 90 Tab*0 Sig: TAKE ONETABLET BY MOUTH EVERY MORNINGAuthorizing Provider: TIMUR HALL User: JERAD SEGOVIA * Telephone Encounter - Jerad Segovia RPh - 07/19/2023 3:15 PM EST RX authorized. Zero refills given until upcoming OV. Thank you, Jerad Segovia PharmD, ENOCH Clinical Pharmacist [facility] Services ([facility]) (formerly Telepharmacy) 07/19/23 3:16 PM [phone] documented in this encounter Plan of Treatment Upcoming Encounters Date Type Department Care Team (Late st Contact Info) Description 09/14/2023 8:50 AM EDT Office Visit [facility] [address] [place] [address] Timur Hall DO [address] [place] [address] Scheduled Orders Name Type Priority Associated Diagnoses Orde r Schedule BASIC METABOLIC PANEL Lab Routine Encounter for long-term (current) use of medications Expected: 08/02/2023 (Approximate), Expires: 07/19/2024 Health Maintenance Due Date Last Done Comments HIV Screening 11/17/1998 Hepatitis C Screening 11/17/2001 Depression Screening 01/06/2019 01/06/2018 COVID-19 Vaccine ( season) 2023 03/12/2022, 04/24/2021, 09/02/2020, Additional history exists Influenza Vaccine (FLU shot) (#1) 2023 03/29/2022, 03/14/2021, 03/01/2020, Additional history exists Diabetes Screening 05/14/2024 05/14/2021, 1 07/15/2020, 01/23/2021, Additional history exists DTaP,Tdap,and Td Vaccines (6 - Td or Tdap) 05/15/2024 05/15/2014, 06/09/1998, 04/21/1989, Additional history exists Hepatitis B Completed 12/22/1998, 05/14, 05/05/1998 GARDASIL-HPV IMMUNIZATION SERIES Aged Out No longer eligible based on patient's age to complete this topic MENINGOCOCCAL (MENACTRA/MENVEO) Aged Out No longer eligible based on patient's age to complete this topic Pneumococcal Vaccine: Pediatrics (0 to 5 Years) and At-Risk Patients (6 to 64 Years) Aged Out No longer eligible based on patient's age to complete this topic documented as of this encounter Medical Devices Not on filedocumented as of this encounter Visit Diagnoses Diagnosis Encounter for long-term (current) use of medications- Primary Encounter for long-term (current) use of other medications Seasonal allergies Allergic rhinitis, cause unspecified documented in this encounter Advance Directives Documents on File Type Date Recorded Patient Vice President Network Expl anation Power of Exchange Mechanic 05/15/2021 POWER OF A TTORNEY Latest Code [...] the patient have Health Care Power of Exchange Mechanic? No Care Teams Acid Dumper Relationship Specialty Start Date End Date Timur Hall DO [address] [facility] [place] [address] PCP - General Family Medicine 12/02/13 documented as of this encounter
--- OUTSIDE RECORDS SUMMARY | 2023-11-21 23:27 | External Medical Summary | Summary of Care ---
Author Name Unknown Organization [facility] Address [address] [place] [address] Phone [phone] Care Team Providers Care Lawn Technician Name Role Phone Timur Hall DO Primary Care Provider [phone] Reason for Visit * Reason Onset Date Comments Medication Refill 09/18/2023 Encounter Details Date Type Department Care Team (Late st Contact Info) Description 09/18/2023 Refill [facility] [address] [place] [address] Timur Hall DO [address] [place] [address] SYEDA (generalized anxiety disorder) Allergies Active Allergy Reactions Criticality Noted Date Comments Erythromycin 08/07/1997 gi upset Penicillin G 08/07/1997 rash documented as of this encounter (statuses as of 09/21/2023) Medications Medication Sig Dispensed Refills Start Date End Date Status Multivitamin Adult Oral Tablet Take by mouth. 0 Active Acetaminophen 325 MG Oral Tablet (Tylenol) Take 3 Tablets by mouth every 8 hours. 30 Tablet 0 05/14/2021 Active Fluticasone Propionate 50 MCG/ACT Nasal Suspension (Flonase) Administer 1 [place] into nostril as needed for Rhinitis. 48 [...] for Anxiety. 30 Tablet 0 09/21/2023 Active Venlafaxine HCl ER 37.5 MG Oral Capsule Extended Release 24 Hour (Effexor XR) Take 1 Capsule by mouth in the morning. Do not cut, crush or chew. 30 Capsule 5 09/19/2023 Active clonazePAM 0.5 MG Oral Tablet (KlonoPIN)Indica tions:SYEDA (generalized anxiety disorder) Take 1 Tablet by mouth 3 times a day as needed for Anxiety. 30 Tablet 0 08/24/2023 09/18/2023 Discontinue d(Refill) documented as of this encounter (statuses as of 09/21/2023) Active Problems Problem Noted Date Diagnosed Date Obesity, Class II, BMI 35-39.9, isolated (see ac tual BMI) 05/14/2021 No transfusions per synagogue beliefs 05/12/2021 Hiatal hernia with gastroesophageal reflux 05/15 Seasonal allergies 05/15/2014 documented as of this encounter (statuses as of 09/21/2023) Resolved Problems Problem Noted Date Diagnosed Date Resolved Date NO SIGNIFICANT MED HX 2013 documented as of this encounter (statuses as of 09/21/2023) Immunizations Name Administration Dates Next Due COVID-19 mRNA, LNP-s, No Pre serve, 2-Dose Series ([employer]) 09/02/2020,08/12/2020 COVID-19, LNP-s, No Preserve , [place]anaco-sucrose, Ages 12+ (Pfizer) 04/24/2021 Covid-19, Mrna, Lnp-s, Pf, Bivalent, 30 Mcg, IM, 12 yrs and above ([employer]onic) 03/12/2022 Seasonal Influenza, PF, 6 M & [...] encounter Miscellaneous Notes * Telephone Encounter - Timur Hall DO - 09/21/2023 10:08 AM EDTSigned Prescriptions: Disp Refills clonazePAM 0.5 MG Oral Tablet (KlonoPIN) 30 Tab*0 Sig: Take 1 Tablet by mouth 3 times a day as needed for Anxiety. Authorizing Provider: TIMUR HALL * Telephone Encounter - Tania Chowdary [facility] - 09/19/2023 2:14 PM EDT Pending Prescriptions: Disp Refills clonazePAM 0.5 MG Oral Tablet (KlonoPIN) 30 Tab*0 Sig: Take 1 Tablet by mouth 3 times a day as needed for Anxiety. * Telephone Encounter - Tania Chowdary [facility] - 09/19/2023 2:14 PM EDT I have reviewed the patients controlled substance dispensing history in the Prescription Drug Monitoring Program in compliance with the [facility] regulations before prescribing a controlled substance. PDMP checked on 09/19/2023. Pending Prescriptions: Disp Refills clonazePAM 0.5 MG Oral Tablet (KlonoPIN) 30 Tab*0 Sig: Take 1 Tablet by mouth 3 times a day as needed for Anxiety. Last Visit: 09/07/2023 (in office), Visit date not found (telemedicine) Next Visit: Visit date not found Date medication was last filled: 08/24/23 Date medication is due for refill: 09/01/23 Pharmacy: [id number] [facility] Is this request for a controlled substance? Yes and Urine Drug Screen Not completed Toxicology results: No results found for this or any previous visit. Please approve if appropriate. Thanks, Tania Chowdary [facility] Clinical Pharmacist Centralized Clinical Pharmacy Services (CCPS) (Formerly Telepharmacy) [phone] documented in this encounter Plan of Treatment Upcoming Encounters Date Type Department Care Team (Late st Contact Info) Description 09/28/2023 1:00 PM EDT [facility] Psychiatry[address] [address] Binu Caballero MD [address] [facility] [place] [address] 02/16/2024 9:00 AM EDT Telemedicine Psychiatry, [facility] [address] [facility] [place] [address] Grace Rey CRNP [address] [facility] [place] [address] Health Maintenance Due Date Last Done [...] as of this encounter Visit Diagnoses Diagnosis SYEDA (generalized anxiety disorder) Generalized anxiety disorder documented in this encounter Advance Directives Documents on File Type Date Recorded Patient Boot Maker Expl anation Power of Transportation Design Engineer 05/15/2021 POWER OF A TTORNEY Latest Code [...] the patient have Health Care Power of Transportation Design Engineer? No Care Teams Lawn Technician Relationship Specialty Start Date End Date Timur Hall DO [address] [place] [address] PCP - General Family Medicine 12/02/13 documented as of this encounter
--- OUTSIDE RECORDS SUMMARY | 2023-11-21 23:27 | External Medical Summary | Summary of Care ---
Author Name Unknown Organization [facility] Address [address] [place] [address] Phone [phone] Care Team Providers Care Emt Basic Name Role Phone Timur Hall DO Primary Care Provider Reason for Visit * Reason Onset Date Comments Medication Refill 11/14/2023 Encounter Details Date Type Department Care Team (Late st Contact Info) Description 11/14/2023 Refill [facility] [address] [place] [address] Timur Hall DO [address] [place] [address] SYEDA (generalized anxiety disorder) Allergies Active Allergy Reactions Criticality Noted Date Comments Erythromycin 08/07/1997 gi upset Penicillin G 08/07/1997 rash documented as of this encounter (statuses as of 11/16/2023) Medications Medication Sig Dispensed Refills Start Date End Date Status Multivitamin Adult Oral Tablet Take by mouth. Active Acetaminophen 325 MG Oral Tablet (Tylenol) Take 3 Tablets by mouth every 8 hours. 30 Tablet 05/14/2021 Active Fluticasone Propionate 50 MCG/ACT Nasal Suspension (Flonase) Administer 1 [place] into nostril as needed for Rhinitis. 48 [...] for Anxiety. 90 Tablet 5 10/24/2023 Active clonazePAM 0.5 MG Oral Tablet (KlonoPIN)Indica tions:SYEDA (generalized anxiety disorder) Take 1 Tablet by mouth 3 times a day as needed for Anxiety. 30 Tablet 11/16/2023 Active clonazePAM 0.5 MG Oral Tablet (KlonoPIN)Indica tions:SYEDA (generalized anxiety disorder) Take 1 Tablet by mouth 3 times a day as needed for Anxiety. 30 Tablet 10/19/2023 11/14/2023 Discontinued (Refill) documented as of this encounter (statuses as of 11/16/2023) Active Problems Problem Noted Date Diagnosed Date Other mixed anxiety disorders 09/28/2023 Mood disorder 09/28/2023 Obesity, Class II, BMI 35-39.9, isolated (see ac tual BMI) 05/14/2021 No transfusions per nondenominational beliefs 05/12/2021 Hiatal hernia with gastroesophageal reflux 05/15 Seasonal allergies 05/15/2014 documented as of this encounter (statuses as of 11/16/2023) Resolved Problems Problem Noted Date Diagnosed Date Resolved Date NO SIGNIFICANT MED HX 2013 documented as of this encounter (statuses as of 11/16/2023) Immunizations Name Administration Dates Next Due COVID-19 mRNA, LNP-s, No Pre serve, 2-Dose Series ([employer]) 09/02/2020,08/12/2020 COVID-19, LNP-s, No Preserve , Guanaco-sucrose, [...] Telephone Encounter - Timur Hall DO - 11/16/2023 8:47 AM EDTSigned Prescriptions: Disp Refills clonazePAM 0.5 MG Oral Tablet (KlonoPIN) 30 Tab*0 Sig: Take 1 Tablet by mouth 3 times a day as needed for Anxiety. Authorizing Provider: TIMUR HALL * Telephone Encounter - Mg Chadwick [facility] - 11/15/2023 10:47 AM EDT Pending Prescriptions: Disp Refills clonazePAM 0.5 MG Oral Tablet (KlonoPIN) 30 Tab*0 Sig: Take 1 Tablet by mouth 3 times a day as needed for Anxiety. * Telephone Encounter - Mg Chadwick RPh - 11/15/2023 10:45 AM EDT I have reviewed the patients controlled substance dispensing history in the Prescription Drug Monitoring Program in compliance with the [facility] regulations before prescribing a controlled substance. PDMP checked on 11/15/2023. Pending Prescriptions: Disp Refills clonazePAM 0.5 MG Oral Tablet (KlonoPIN) 30 Tab*0 Sig: Take 1 Tablet by mouth 3 times a day as needed for Anxiety. Last Visit: 09/07/2023 (in office), Visit date not found (telemedicine) Next Visit: Visit date not found Date medication was last filled: 10/19/23 Date medication is due for refill: 10/29/23 Pharmacy: [id number] [facility] Is this request for a controlled substance? Yes and Urine Drug Screen Not completed Toxicology results: No results found for this or any previous visit. Please approve if appropriate. Thanks, Mg Chadwick, PharmD Clinical Pharmacist Centralized Clinical Pharmacy Services (CCPS) (formerly Telepharmacy) [phone] 11/15/2023, 10:45 AM documented in this encounter Plan of Treatment Upcoming Encounters Date Type Department Care Team (Late st Contact Info) Description 12/02/2023 6:00 PM EDT Telemedicine Psychiatry [facility] [address] [place] [address] Binu Caballero MD [address] [place] [address] 02/16/2024 9:00 AM EDT Telemedicine Psychiatry, Pete Moore [address] [facility] [place] [address] Grace Rey, SOPHIA [address] [facility] [place] [phone] Health Maintenance Due Date Last Done Comments [...] Documents on File Type Date Recorded Patient Tobacco Dipper Expl anation Power of Papier Mache' Molder 05/15/2021 POWER OF A TTORNEY * Full Code (Latest Code Status on File) Date Activated Date Inactivated Comments 06/18/2022 11:44 AM 06/18/2022 7:11 PM This order re flects the patients wishes and were consensually agreed upon. Question Answer Comments Discussion of Advance Directives occurred with: Patient * Full Code Date Activated Date Inactivated Comments 06/18/2022 11:41 AM 06/18/2022 11:44 AM This order r eflects the patients wishes and were consensually agreed upon. Question Answer Comments Discussion of Advance Directives occurred with: Patient * Full Code Date Activated Date Inactivated Comments 05/14/2021 7:29 AM 05/15/2021 12:23 AM Question Answer Comments Discussion of Advance Directives occurred with: Not Discussed Does the patient have a Living Will? No Does the patient have Health Care Power of Attor ashley? No Care Teams Emt Basic Relationship Specialty Start Date End Date Timur Hall DO [address] [facility] [place] [address] PCP - General Family Medicine 12/02/13 documented as of this encounter
--- OUTSIDE RECORDS SUMMARY | 2023-11-21 23:27 | External Medical Summary | Summary of Care ---
Author Name Unknown Organization [facility] Address [address] [place] [address] Phone [phone] Care Team Providers Care Cyber Security Architect Name Role Phone Sophia Murillo DO Primary Care Provider + [phone] Reason for Referral * Evaluate & Treat - Unlimited Visits (Within 3 days (urgent)) - Authorized Specialty Diagnoses / Procedures Referred By Adams peña Referred To Contact Psychiatry Diagnoses Anxiety Sophia Murillo DO [address] [place] [address] Referral ID Status Reason Start Date Expiration Date Visits Requested Visits Authorized [id number] Authorized Specialty Services Required 09/07/[phone] Question Answer Referral Priority Within 3 days (urgent) Where should this appointment be scheduled? [facility] Is this referral for medication management? Yes Reason for Referral Anxiety Reason for Visit * Reason Comments Acute Pt here today to sander clarke to the doctor about his anxiety medication Encounter Details Date Type Department Care Team (Late st Contact Info) Description 09/07/2023 10:50 AM EDT Office Visit [facility] [address] [place] [phone] Sophia Murillo DO [address], [place] [phone] Anxiety* Allergies Active Allergy Reactions Criticality Noted Date Comments Erythromycin 08/07/1997 gi upset Penicillin G 08/07/1997 rash documented as of this encounter (statuses as of 09/07/2023) Medications Medication Sig Dispensed Refills Start Date End Date Status Multivitamin Adult Oral Tablet Take by mouth. 0 Active Acetaminophen 325 MG Oral Tablet (Tylenol) Take 3 Tablets by mouth every 8 hours. 30 Tablet 0 05/14/2021 Active Fluticasone Propionate 50 MCG/ACT Nasal Suspension (Flonase) Administer 1 [place] into nostril as needed for Rhinitis. 48 [...] needed for Anxiety. 30 Tablet 0 08/24/2023 Active Venlafaxine HCl ER 75 MG Oral Capsule Extended Release 24 Hour (Effexor XR) Take 1 Capsule by mouth in the morning. Do not cut, crush or chew. 30 Capsule 5 08/21/2023 09/07/2023 Discontinue d(Discharge d) documented as of this encounter (statuses as of 09/07/2023) Active Problems Problem Noted Date Diagnosed Date Obesity, Class II, BMI 35-39.9, isolated (see ac tual BMI) 05/14/2021 No transfusions per tenriism beliefs 05/12/2021 Hiatal hernia with gastroesophageal reflux 05/15 Seasonal allergies 05/15/2014 documented as of this encounter (statuses as of 09/07/2023) Resolved Problems Problem Noted Date Diagnosed Date Resolved Date NO SIGNIFICANT MED HX 2013 documented as of this encounter (statuses as of 09/07/2023) Immunizations Name Administration Dates Next Due COVID-19 mRNA, LNP-s, No Pre serve, 2-Dose Series ([employer]UM[employer]) 09/02/2020,08/12/2020 COVID-19, LNP-s, No Preserve , Guanaco-sucrose, [...] alcohol) social alcohol. PHQ-2 Answer Date Recorded PHQ Adult Total Score 12 09/07/2023 Hunger Vital Sign Answer Date Recorded Within the past 12 months, y ou worried that your food would run out before you got the money to buy more. Patient declined Within the past 12 months, t he food you bought just didn't last and you didn't have money to get more. Patient declined Sex and Gender Information Value Date Recorded Sex Assigned at Male 09/13/2018 6:20 PM EDT Gender Identity Male 09/13/2018 6:20 PM EDT Sexual Orientation Straight 09/13/2018 6: 20 PM EDT Job Start Date Occupation Industry Not on file Not on file Not on file documented as of this encounter Last Filed Vital Signs Vital Sign Reading Time Taken Comments Blood Pressure 132/72 09/07/2023 10:54 AM EDT Pulse 75 09/07/2023 10:54 AM EDT Temperature 36.2 C (97.1 F) 09/07/2023 10:54 AM E DT Respiratory Rate 18 09/07/2023 10:54 AM EDT Oxygen Saturation 98% 09/07/2023 10:54 AM EDT Inhaled Oxygen Concentration - - Weight 107 kg (236 lb) 09/07/2023 10:54 AM EDT Height - - Body Mass Index 35.88 06/10/2023 10:52 AM EST documented in this encounter Progress Notes * Sophia Murillo, - 09/07/2023 11:16 AM EDT Subjective: Jesse Paredes is a 37 year old male. Chief Complaint Patient presents with Acute Pt here today to talk to the doctor about his anxiety medication HPI: 37 yr old male presents with for worsening anxiety and alcohol use. Almost 1 week ago he came home from work and was not able to get of his truck and felt warm, and had some suicidal ideation along with obsessive thoughts. This was one week after we increased his effexor, at the time he was on buspar low dose 10 mg bid. His states last week he appeared like hewas drinking as he was unstable walking, but she did not notice any alcohol smell. He reports he was not drinking. His last drink was on Tuesday. Using klonopin as needed for anxiety Since he stopped drinking heavily in Jun he is unable to function at work, and only works a few times per week. + insomnia + nightmares. Taking klonopin nightly to sleep. Worsening anxiety after seeing his father pass away about 1.5 years ago. PHM: Patient Active Problem List Diagnosis Code Hiatal hernia with gastroesophageal reflux K44.9, K21.9 Seasonal allergies J30.2 No transfusions per tenriism beliefs Z53.1 Obesity, Class II, BMI 35-39.9, isolated (see actual BMI) E66.9 Current Outpatient Medications Medication Sig Dispense Refill Multivitamin Adult Oral Tablet Take by mouth. Acetaminophen 325 MG Oral Tablet (Tylenol) Take 3 Tablets by mouth every 8 hours. 30 Tablet 0 Fluticasone Propionate 50 MCG/ACT Nasal Suspension (Flonase) Administer 1 [place] into nostril as needed for Rhinitis. 48 [...] Reactions Erythromycin gi upset Penicillin G rash Objective: BP 132/72 | Pulse 75 | Temp 36.2 C (97.1 F) (Infrared ) | Resp 18 | Wt 107 kg (236 lb) | SpO2 98% | BMI 35.88 kg/m | BSA 2.27 m Physical Exam: General: alert, healthy, and no distress Heart: regular rate & rhythm, no murmur, and no gallops Lungs: chest symmetric with normal AP diameter, no chest deformities noted, no chest wall tenderness, lungs clear to auscultation Good eye contact, and answers questions appropriately. ASSESSMENT/PLAN: Anxiety (Primary) - ADULT/PEDS PSYCHIATRY REFERRAL OP To cont 37.5 effexor To use buspar. To stop klonopin or only use at night. To see psychiatry. SI negative today. Sophia Murillo DO documented in this encounter Nursing Notes * Ariadna Lyn LPN - 09/07/2023 10:52 AM EDT Chief Complaint Patient presents with Acute Pt here today to talk to the doctor about his anxiety medication documented in this encounter Plan of Treatment Upcoming Encounters Date Type Department Care Team (Late st Contact Info) Description 09/14/2023 8:50 AM EDT Office Visit [facility] [address] [place] [address] Sophia Murillo DO [address] [place] [address] 10/26/2023 2:30 PM EDT Telemedicine [facility] [address] [place] [address] Ayala Chaidez [facility] [address], [place] [phone] Scheduled Referrals Name Type Priority Associated Diagnoses Orde r Schedule ADULT/PEDS PSYCHIATRY REFERRAL OP Referral Within 3 days (urgent) Anxiety Ordered: 09/07/2023 Health Maintenance Due Date Last Done Comments COVID-19 Vaccine (2022- season) 2023 03/12/2022, 04/24/2021, 09/02/2020, Additional history exists Influenza Vaccine (FLU shot) (#1) 2023 03/29/2022, 03/14/2021, 03/01/2020, Additional history exists Depression, Most Recent Score >= 10 (will fire each visit until score < 10) 09/08/2023 09/07/2023 Diabetes Screening 05/14/2024 05/14/2021, 1 07/15/2020, 01/23/2021, [...] as of this encounter Visit Diagnoses Diagnosis Anxiety- Primary Anxiety state, unspecified documented in this encounter Advance Directives Documents on File Type Date Recorded Patient Can Marker Expl anation Power of Care Transition Coordinator 05/15/2021 POWER OF A TTORNEY Latest Code [...] the patient have Health Care Power of Care Transition Coordinator? No Care Teams Cyber Security Architect Relationship Specialty Start Date End Date Sophia Murillo DO [address] [facility] [place] [address] PCP - General Family Medicine 12/02/13 documented as of this encounter"
--- OUTSIDE RECORDS SUMMARY | 2023-11-21 23:27 | External Medical Summary | Summary of Care ---
Author Name Unknown Organization [facility] Address [address] [place] [address] Phone [phone] Care Team Providers Care Tests Superintendent Name Role Phone Sophia Murillo Primary Care Provider Reason for Visit * Reason Comments Medication Management * - Authorized Specialty Diagnoses / Procedures Referred By Adams peña Referred To Contact Referral ID Status Reason Start Date Expiration Date V isits Requested Visits Authorized [id number] Authorized 09/12/2023 09/10/[phone] Encounter Details Date Type Department Care Team (Late st Contact Info) Description 10/21/2023 6:30 PM EDT [facility] [address] [place] [address] Binu Caballero MD [address] [place] [phone] Mood disorder (HCC)*; Other mixed anxiety disorders Allergies Active Allergy Reactions Criticality Noted Date Comments Erythromycin 08/07/1997 gi upset Penicillin G 08/07/1997 rash documented as of this encounter (statuses as of 10/21/2023) Medications Medication Sig Dispensed Refills Start Date End Date Status Multivitamin Adult Oral Tablet Take by mouth. 0 Active Acetaminophen 325 MG Oral Tablet (Tylenol) Take 3 Tablets by mouth every 8 hours. 30 Tablet 0 05/14/2021 Active Fluticasone Propionate 50 MCG/ACT Nasal Suspension (Flonase) Administer 1 [place] into nostril as needed for Rhinitis. 48 [...] the morning. 30 Tablet 5 10/21/2023 Active busPIRone HCl 10 MG Oral Tablet (Buspar)Indicati ons:KERMIT (generalized anxiety disorder) Take 1 Tablet by mouth 2 times a day as needed for Anxiety. 40 Tablet 5 06/10/2023 10/21/2023 Discontinued (Patient preference/d iscontinuati on) ARIPiprazole 5 MG Oral Tablet (Abilify) Take 1 Tablet by mouth in the morning. 30 Tablet 5 09/28/2023 10/21/2023 Discontinued (Refill) documented as of this encounter (statuses as of 10/21/2023) Active Problems Problem Noted Date Diagnosed Date Other mixed anxiety disorders 09/28/2023 Mood disorder 09/28/2023 Obesity, Class II, BMI 35-39.9, isolated (see ac tual BMI) 05/14/2021 No transfusions per mandaen beliefs 05/12/2021 Hiatal hernia with gastroesophageal reflux 05/15 Seasonal allergies 05/15/2014 documented as of this encounter (statuses as of 10/21/2023) Resolved Problems Problem Noted Date Diagnosed Date Resolved Date NO SIGNIFICANT MED HX 2013 documented as of this encounter (statuses as of 10/21/2023) Immunizations Name Administration Dates Next Due COVID-19 mRNA, LNP-s, No Pre serve, 2-Dose Series ([employer]) 09/02/2020,08/12/2020 COVID-19, LNP-s, No Preserve , Guanaco-sucrose, Ages 12+ ([employer]) 04/24/2021 Covid-19, Mrna, Lnp-s, Pf, Bivalent, 30 [...] * Patient Instructions* Binu Caballero MD - 10/21/2023 6:36 PM EDT Discontinue Buspar Continue Clonazepam 0.5 mg a night for sleep/anxiety Increase Abilify to 10mg a day Start Hydroxyzine 25-100mg up to three times a day as needed for anxiety and sleep Acute care follow-up appointment in 1 month documented in this encounter Progress Notes * Binu Caballero MD - 10/21/2023 6:27 PM EDT OUTPATIENT PSYCHIATRY URGENT CARE NOTE DIVISION OF PSYCHIATRY [address] [address] Name: Jesse Paredes Date Patient was Seen: 10/21/2023 Patient location: HOME. I was not in a hospital or clinic location. After connecting through televideo, patient was verified with two unique identifiers. Patient (or authorized legal sales representative printing supplies) was then informed that this was a [...] PTSD seen today for urgent psychiatric care f/u. feels "dark cloud is now a light cloud", pt is not as "gloomy". Pt reports feeling "much more stable mood salgado". Having less nightmares. Has been able to go to work regularly, previously was missing about 1 day a week due to "overwhelmed, anxiety, depression". Panic attacks decreased to 1 a week increased of every day. Still occasionally irritable but less often, "used to feel angry inside". reports he's irritable one day a week and not everyday. Now he has more insight, better able to acknowledge his aggressive behavior. SI and guilt have resolved. Had urge to drink on one day. Is fidgety and restless in the evenings, unable to relax. Taking clonazepam 1mg at night. Was taking Buspar, felt it caused more dizziness when Abilify was added. Now using Buspar Prn whichhe finds very helpful, though causes significant dizziness. Still waking frequently between 2-5am, unable to go back to sleep. Feels tired in the afternoons, may be due to working outside in the heat. Pt denies current or recent active or [...] 50 MCG/ACT Nasal Suspension (Flonase) Administer 1 [place] into nostril as needed for Rhinitis. 48 g 1 Pantoprazole Sodium 20 MG Oral Tablet Delayed Release (Protonix) Take 1 Tablet by mouth in the morning. 90 Tablet 3 ARIPiprazole 5 MG Oral Tablet (Abilify) Take 1 Tablet by mouth in the morning. 30 Tablet 5 clonazePAM 0.5 MG Oral Tablet (KlonoPIN) Take 1 Tablet by mouth 3 times a day as needed for Anxiety. 30 Tablet 0 Cetirizine HCl 10 MG Oral Tablet (ZyrTEC) TAKE ONE TABLET BY MOUTH EVERY MORNING 90 Tablet 3 No current facility-administered medications for this visit. Review of patient's allergies indicates: Allergen Reactions Erythromycin gi upset Penicillin G rash Current Outpatient Medications Medication Sig Dispense Refill Multivitamin Adult Oral Tablet Take by mouth. Acetaminophen 325 MG Oral Tablet (Tylenol) Take 3 Tablets by mouth every 8 hours. 30 Tablet 0 Fluticasone Propionate 50 MCG/ACT Nasal Suspension (Flonase) Administer 1 [place] into nostril as needed for Rhinitis. 48 g 1 Pantoprazole Sodium 20 MG Oral Tablet Delayed Release (Protonix) Take 1 Tablet by mouth in the morning. 90 Tablet 3 ARIPiprazole 5 MG Oral Tablet (Abilify) Take 1 Tablet by mouth in the morning. 30 Tablet 5 clonazePAM 0.5 MG Oral Tablet (KlonoPIN) Take 1 Tablet by mouth 3 times a day as needed for Anxiety. 30 Tablet 0 Cetirizine HCl 10 MG Oral Tablet (ZyrTEC) TAKE ONE TABLET BY MOUTH EVERY MORNING 90 Tablet 3 No current facility-administered medications for this visit. [...] in rate, rhythm, tone, and volume Mood: "Good, much better" Affect: type - euthymic; range - constricted [...] good based on understanding of life event [place] Suicide Severity Rating Scale Results 10/21/2023 18:31 [place] SUICIDE SEVERITY RATING SCALE (C-SSRS) Have you wished you were or wished you could go to sleep and not wake up? (In the Past Month or Since Last Visit) No Have you had any actual thoughts of [...] past 3 months? No Level of Risk No Risk Identified [facility] Safety Plan Completed: no RISK ASSESSMENT Suicide/Homicidal Ideation/Plan/Intent: Acute Risk Factors: current mood and anxiety symptoms and access to lethal means Chronic Risk Factors: male gender, , and h/o mood/anxiety disorder Protective factors: devoted to family, child and/or pet, support from family, sense of purpose, current desire to engage in services, future focused thinking, has safety plan, and Jain practices Homicidal: Denies Formulation: Based on these [...] 2. Other mixed anxiety disorders F41.3 Assessment: 09/28/23 Oanh Paredes presents due to worsening anxiety over [...] titration patient was not himself, had increased goal- directed activity, at times extremely irritable, auto aggressive, with worsening depression and SI, symptoms receded after dose was decreased. Unclear what role escalating alcohol use over the past few years is playing in current presentation, although patient was able to temper his alcohol use over the past few months, but no improvement in symptoms despite this. We will initially start patient on Abilify for mood stabilization. 10/21/2023 Patient reports significantly improved mood after Abilify initiation during last appointment. Much less irritable and anxious, resolution of depression symptoms, no longer experiencing any SI. Continues to experience occasional irritability and anxiety as well as stationary engineer refrigeration awakening. We will further increase Abilify today and start patient on hydroxyzine for anxiety and sleep. Patient will dis continue BuSpar which he had been using p.r.n. but was causing dizziness. Given severity of symptoms will follow closely through acute care clinic until patient's condition stabilizes or they establish longitudinal psychiatric care. Patient Instructions Discontinue Buspar Continue Clonazepam 0.5 mg a night for sleep/anxiety Increase Abilify to 10mg a day Start Hydroxyzine 25-100mg up to three times a day as needed for anxiety and sleep Acute care follow-up appointment in 1 month Treatment options and alternatives reviewed with patient [...] risk of harm. Time Spent on Visit: 30 minutes - including preparing to see the [...] 988 Crisis Textline : Text "HOME" to 238321 to connect with a crisis counselor Crisis Numbers by [facility]: [place] [facility] - Emergency Services [facility] (8-7-YOU CAN) re:solve Crisis Network [place] & [place] . The Open Door - Crisis Intervention [place] [facility] Crisis Help-Line [place] & [place] [facility] - Crisis Intervention Services [place] Service Access [employer] - Crisis Intervention [place] Choose option 1 [facility] of Retail Tire Sales Manager Edgard Jimenez Crisis Intervention [place] [facility] - Mental Health Crisis [place] - Crisis Intervention [place] [facility] - Crisis Intervention Attila Thomas [facility] - Crisis Line [place] - Mental Health Crisis Hotline [place] [facility] - Crisis Services Ar[facility] Center [place] Service Access [employer] - Crisis Intervention Karina - Mental Health Crisis Intervention Services [place] [facility] MH/ID Program [place], [place], [place], [place] - Crisis System [place] [facility] - Crisis Hotline Say (5-680-217-DTMW) [facility] - Crisis Intervention [place] [facility] - Crisis Intervention Services [place] [facility] - Crisis Services Jose [facility] Health - Crisis Center [place] [phone] [facility] - Crisis Hotline Katey (8:30 am-5:00 pm) OR (after 5:00 pm, weekends & holidays) Stevie [facility] Crisis Intervention Program Joselo [facility] - Mental Health Crisis Line Ry Springer and [place] - [facility] Crisis Jason & [place] [facility] - Crisis Intervention [place] [facility] - Mental Health Crisis Service [place] - Crisis Intervention [place] [facility] - Crisis Intervention [place] & [place] [facility] - Help Line [facility] MH/ID Program Larissa [facility] - Crisis Intervention [place] - Crisis Intervention [place] [facility] Emergency Services, [facility] - Crisis Intervention [facility] Health - Emergency Services [place] [facility] - Crisis Line [place] - DBHIDS - Suicide and Crisis Intervention Hotline [facility] - Crisis/ Emergency Services [place] [facility] - Emergency Contact Line [facility] - Crisis Line [place] ext. 1 [facility] Human Services [facility] Action - Crisis Intervention Hotline [facility] Crisis Intervention Services Binu Caballero MD [facility] [phone] 10/21/2023 6:54 PM documented in this encounter Plan of Treatment Upcoming Encounters Date Type Department Care Team (Late st Contact Info) Description 12/02/2023 6:00 PM EDT Telemedicine Psychiatry [facility] [address] [place] [phone] Binu Caballero MD [address] [facility] [place] [phone] 02/16/2024 9:00 AM EDT Telemedicine Psychiat[facility], [facility] [address] [place] [address] Grace Rey, SOPHIA [address] [place] [address] Health Maintenance Due Date Last [...] Documents on File Type Date Recorded Patient A/C Tech Expl anation Power of Chief Operating Engineer 05/15/2021 POWER OF A TTORNEY Latest [...] the patient have Health Care Power of Chief Operating Engineer? No Care Teams Tests Superintendent Relationship Specialty Start Date End Date Sophia Murillo DO [address] [facility] [place] [address] PCP - General Family Medicine 12/02/13 documented as of this encounter
--- OUTSIDE RECORDS SUMMARY | 2023-11-21 23:27 | External Medical Summary | Summary of Care ---
Author Name Unknown Organization [facility] Address [address] [place] [address] Phone [phone] Care Team Providers Care Tattoo Designer Name Role Phone Timur Hall DO Primary Care Provider Reason for Visit * Reason Comments Medication Refill Encounter Details Date Type Department Care Team (Late st Contact Info) Description 10/17/[address] [facility] [address] [place] [phone] Timur Hall DO [address], [place] [id number] Seasonal allergies Allergies Active Allergy Reactions Criticality Noted Date Comments Erythromycin 08/07/1997 gi upset Penicillin G 08/07/1997 rash documented as of this encounter (statuses as of 10/18/2023) Medications Medication Sig Dispensed Refills Start Date End Date Status Multivitamin Adult Oral Tablet Take by mouth. 0 Active Acetaminophen 325 MG Oral Tablet (Tylenol) Take 3 Tablets by mouth every 8 hours. 30 Tablet 0 05/14/2021 Active Fluticasone Propionate 50 MCG/ACT Nasal Suspension (Flonase) Administer 1 [place] into nostril as needed for Rhinitis. 48 [...] the morning. 30 Tablet 5 09/28/2023 Active Cetirizine HCl 10 MG Oral Tablet (ZyrTEC)Indicati ons:Seasonal allergies TAKE ONE TABLET BY MOUTH EVERY MORNING 90 Tablet 3 10/18/2023 Active Cetirizine HCl 10 MG Oral Tablet (ZyrTEC)Indicati ons:Seasonal allergies TAKE ONE TABLET BY MOUTH EVERY MORNING 90 Tablet 0 07/19/2023 10/17/2023 Discontinued (Refill) documented as of this encounter (statuses as of 10/18/2023) Active Problems Problem Noted Date Diagnosed Date Other mixed anxiety disorders 09/28/2023 Mood disorder 09/28/2023 Obesity, Class II, BMI 35-39.9, isolated (see ac tual BMI) 05/14/2021 No transfusions per pentecostal beliefs 05/12/2021 Hiatal hernia with gastroesophageal reflux 05/15 Seasonal allergies 05/15/2014 documented as of this encounter (statuses as of 10/18/2023) Resolved Problems Problem Noted Date Diagnosed Date Resolved Date NO SIGNIFICANT MED HX 2013 documented as of this encounter (statuses as of 10/18/2023) Immunizations Name Administration Dates Next Due COVID-19 mRNA, LNP-s, No Pre serve, 2-Dose Series (Wildfang) 09/02/2020,08/12/2020 COVID-19, LNP-s, No Preserve , [place]anaco-sucrose, [...] encounter Miscellaneous Notes * Telephone Encounter - Eri Noguera RPh - 10/18/2023 7:57 AM EDTSigned Prescriptions: Disp Refills Cetirizine HCl 10 MG Oral Tablet (ZyrTEC) 90 Tab*3 Sig: TAKE ONETABLET BY MOUTH EVERY MORNINGAuthorizing Provider: TIMUR HALL User: ERI NOGUERA MA documented in this encounter Plan of Treatment Upcoming Encounters Date Type Department Care Team (Late st Contact Info) Description 10/21/2023 6:30 PM EDT Telemedicine Psychiatry, [place] [address] [place] [address] Binu Caballero MD [address] [place] [address] 02/16/2024 9:00 AM EDT Telemedicine Psychiatry, [facility] [address] [place] [address] Grace Rey CRNP [address] [place] [phone] Health Maintenance Due Date Last Done Comments [...] as of this encounter Visit Diagnoses Diagnosis Seasonal allergies Allergic rhinitis, cause unspecified documented in this encounter Advance Directives Documents on File Type Date Recorded Patient Medical Pathologist Expl anation Power of Professor Of Violin 05/15/2021 POWER OF A TTORNEY Latest Code [...] the patient have Health Care Power of Professor Of Violin? No Care Teams Tattoo Designer Relationship Specialty Start Date End Date Timur Hall DO [address] [place] [address] PCP - General Family Medicine 12/02/13 documented as of this encounter
--- OUTSIDE RECORDS SUMMARY | 2023-11-21 23:27 | External Medical Summary | Summary of Care ---
Author Name Unknown Organization [facility] Address [address] [place] [address] Phone [phone] Care Team Providers Care Clinical Quality Analyst Name Role Phone Sophia Murillo DO Primary Care Provider [phone] Reason for Visit * Reason Comments Follow Up Here to discuss depr ession/anxiety medication Encounter Details Date Type Department Care Team (Late st Contact Info) Description 06/10/2023 10:50 AM EST Office Visit [facility] [address] [place] [address] Sophia Murillo DO [address] [place] [address] SYEDA (generalized anxiety disorder)* Allergies Active Allergy Reactions Criticality Noted Date Comments Erythromycin 08/07/1997 gi upset Penicillin G 08/07/1997 rash documented as of this encounter (statuses as of 06/10/2023) Medications Medication Sig Dispensed Refills Start Date End Date Status Multivitamin Adult Oral Tablet Take by mouth. 0 Active Acetaminophen 325 MG Oral Tablet (Tylenol) Take 3 Tablets by mouth every 8 hours. 30 Tablet 0 05/14/2021 Active Cetirizine HCl 10 MG Oral Tablet (ZyrTEC)Indicati ons:Seasonal allergies TAKE ONE TABLET BY MOUTH EVERY MORNING 90 Tablet 3 08/09/2022 08/09/2023 Active Fluticasone Propionate 50 MCG/ACT Nasal Suspension (Flonase) Administer 1 [place] into nostril as needed for Rhinitis. 48 g 1 03/01/2023 Active clonazePAM 0.5 MG Oral Tablet (KlonoPIN)Indica tions:SYEDA (generalized anxiety disorder) Take 1 Tablet by mouth 3 times a day as needed for Anxiety. 30 Tablet 0 05/25/2023 Active busPIRone HCl 10 MG Oral Tablet [...] the morning. 90 Tablet 3 06/10/2023 Active Sertraline HCl 25 MG Oral Tablet (Zoloft)Indicati ons:SYEDA (generalized anxiety disorder) TAKE ONE TABLET BY MOUTH EVERY DAY IN THE MORNING TAKE IN ADDITION TO THE 50 MG TABLET TO MAKE A TOTAL OF 75 MG. 90 Tablet 5 09/27/2022 06/10/2023 Discontinue d(Discharge d) Sertraline HCl 50 MG Oral Tablet (Zoloft) TAKE ONE TABLET BY MOUTH EVERY MORNING 90 Tablet 3 08/09/2022 06/10/2023 Discontinue d(Discharge d) Pantoprazole Sodium 20 MG Oral Tablet Delayed Release (Protonix) TAKE ONE TABLET BY MOUTH EVERY MORNING 90 Tablet 3 08/09/2022 06/10/2023 Discontinue d(Refill) documented as of this encounter (statuses as of 06/10/2023) Active Problems Problem Noted Date Diagnosed Date Obesity, Class II, BMI 35-39.9, isolated (see ac tual BMI) 05/14/2021 No transfusions per voodoo beliefs 05/12/2021 Hiatal hernia with gastroesophageal reflux 05/15 Seasonal allergies 05/15/2014 documented as of this encounter (statuses as of 06/10/2023) Resolved Problems Problem Noted Date Diagnosed Date Resolved Date NO SIGNIFICANT MED HX 2013 documented as of this encounter (statuses as of 06/10/2023) Immunizations Name Administration Dates Next Due COVID-19 mRNA, LNP-s, No Pre serve, 2-Dose Series (Ingo Money) 09/02/2020,08/12/2020 COVID-19, LNP-s, No Preserve , Guanaco-sucrose, [...] Sign Reading Time Taken Comments Blood Pressure 120/84 06/10/2023 10:52 AM EST Pulse 88 06/10/2023 10:52 AM EST Temperature 36.8 C (98.2 F) 06/10/2023 10:[address] Respiratory Rate 16 06/10/2023 10:52 AM EST Oxygen Saturation - - Inhaled Oxygen Concentration - - Weight 106.1 kg (234 lb) 06/10/2023 10:52 AM EST Height 172.7 cm (5' 8") 06/10/2023 10:52 AM EST Body Mass Index 35.58 06/10/2023 10:52 AM EST documented in this encounter Progress Notes * Sophia Murillo DO - 06/10/2023 11:33 AM EST Subjective: Jesse Paredes is a 37 year old male. Chief Complaint Patient presents with Follow Up Here to discuss depression/anxiety medication HPI: 37 year old male here today for anxiety/depression. He has been on zoloft 75 daily. Does not feel depressed. The issues is more anxiety. Self medicating with ETOH daily. He has been drinking alcohol daily beer daily, or at times whiskey. From 2-6 drinks a day. At timeshe drinks beer prior to coming home at a bar if he has an earlier day. He wishes not to pursue any counseling. Takes the klonopin nightly. If not he has nightmares. He does take medications with ETOH. PHM: Patient Active Problem List Diagnosis Code Hiatal hernia with gastroesophageal reflux K44.9, K21.9 Seasonal allergies J30.2 No transfusions per voodoo beliefs Z53.1 Obesity, Class II, BMI 35-39.9, isolated (see actual BMI) E66.9 Current Outpatient Medications Medication Sig Dispense Refill Multivitamin Adult Oral Tablet Take by mouth. Acetaminophen 325 MG Oral Tablet (Tylenol) Take 3 Tablets by mouth every 8 hours. 30 Tablet 0 Sertraline HCl 25 MG Oral Tablet (Zoloft) TAKE ONE TABLET BY MOUTH EVERY DAY IN THE MORNING TAKE INADDITION TO THE 50 MG TABLET TO MAKE A TOTAL OF 75 MG. 90 Tablet 5 Cetirizine HCl 10 MG Oral Tablet (ZyrTEC) TAKE ONE TABLET BY MOUTH EVERY MORNING 90 Tablet 3 Sertraline HCl 50 MG Oral Tablet (Zoloft) TAKE ONE TABLET BY MOUTH EVERY MORNING 90 Tablet 3 Pantoprazole Sodium 20 MG Oral Tablet Delayed Release (Protonix) TAKE ONE TABLET BY MOUTH EVERY MORNING 90 Tablet 3 Fluticasone Propionate 50 MCG/ACT Nasal Suspension (Flonase) Administer 1 [place] into nostril as needed for Rhinitis. 48 g 1 clonazePAM 0.5 MG Oral Tablet (KlonoPIN) Take 1 Tablet by mouth 3 times a day as needed for Anxiety. 30 Tablet 0 No current facility-administered medications for this visit. Review of patient's allergies indicates: Allergen Reactions Erythromycin gi upset Penicillin G rash Objective: BP 120/84 | Pulse 88 | Temp 36.8 C (98.2 F) | Resp 16 | Ht 1.727 m (5' 8") | Wt 106.1 kg (234 lb) | BMI 35.58 kg/m | BSA 2.26 m Physical Exam: General: alert, healthy, and no distress Heart: regular rate & rhythm, no murmur, and no gallops Lungs: chest symmetric with normal AP diameter, no chest deformities noted, no chest wall tenderness, lungs clear to auscultation Abdomen: abdomen soft, non-tender, normal bowel sounds, and no masses or organomegaly ASSESSMENT/PLAN: SYEDA (generalized anxiety disorder) (Primary) - busPIRone HCl 10 MG Oral Tablet (Buspar); Take 1 Tablet by mouth 2 times a day as needed for Anxiety. - Venlafaxine HCl ER 37.5 MG Oral Capsule Extended Release 24 Hour (Effexor XR); Take 1 Capsule by mouth in the morning. Do not cut, crush or chew. Wean off the zoloft as this is not helping. 50 mg for 1 weeks 25 mg for 1 week And then 12.5 mg for 1 week and then start effexor. We talked about getting on Naltrexone, he would like to wait. To use the buspar as needed. Cont protonix for GI protection. I suggested that he stop drinking etoh all together for now. Other orders - Pantoprazole Sodium 20 MG Oral Tablet Delayed Release (Protonix); Take 1 Tablet by mouth in the morning. Follow Up: Return in about 3 months (around 09/09/2023). Sophia Murillo DO documented in this encounter Nursing Notes * Ronel Serrano LPN - 06/10/2023 10:54 AM EST The patient has been properly identified by confirmation of name and date of . Chief Complaint Patient presents with Follow Up Here to discuss depression/anxiety medication documented in this encounter Plan of Treatment Upcoming Encounters Date Type Department Care Team (Late st Contact Info) Description 09/14/2023 8:50 AM EDT Office [facility] [address] [facility] [address] Sophia Murillo DO [address] [place] [facility] [place] [address] Health Maintenance Due Date Last Done Comments [...] encounter Visit Diagnoses Diagnosis SYEDA (generalized anxiety disorder)- Primary Generalized anxiety disorder documented in this encounter Advance Directives Documents on File Type Date Recorded Patient Scrap Drop Operator Expl anation Power of Automation Clerk 05/15/2021 POWER OF A TTORNEY Latest Code [...] the patient have Health Care Power of Automation Clerk? No Care Teams Clinical Quality Analyst Relationship Specialty Start Date End Date Sophia Murillo DO [address] [place] [address] PCP - General Family Medicine 12/02/13 documented as of this encounter
--- OUTSIDE RECORDS SUMMARY | 2023-11-21 23:27 | External Medical Summary | Summary of Care ---
Author Name Unknown Organization [facility] Address [address] [place] [address] Phone [phone] Care Team Providers Care Switchboard Installer Name Role Phone Timur Hall DO Primary Care Provider [phone] Reason for Visit * Reason Onset Date Comments Medication Refill 08/21/2023 Encounter Details Date Type Department Care Team (Late st Contact Info) Description 08/21/2023 Refill [facility] [address] [place] [address] Timur Hall DO [address] [place] [address] SYEDA (generalized anxiety disorder) Allergies Active Allergy Reactions Criticality Noted Date Comments Erythromycin 08/07/1997 gi upset Penicillin G 08/07/1997 rash documented as of this encounter (statuses as of 08/24/2023) Medications Medication Sig Dispensed Refills Start Date End Date Status Multivitamin Adult Oral Tablet Take by mouth. 0 Active Acetaminophen 325 MG Oral Tablet (Tylenol) Take 3 Tablets by mouth every 8 hours. 30 Tablet 0 05/14/2021 Active Fluticasone Propionate 50 MCG/ACT Nasal Suspension (Flonase) Administer 1 [place] into nostril as needed for Rhinitis. 48 [...] crush or chew. 30 Capsule 5 08/21/2023 Active clonazePAM 0.5 MG Oral Tablet (KlonoPIN)Indica tions:SYEDA (generalized anxiety disorder) Take 1 Tablet by mouth 3 times a day as needed for Anxiety. 30 Tablet 0 07/25/2023 08/21/2023 Discontinue d(Refill) documented as of this encounter (statuses as of 08/24/2023) Active Problems Problem Noted Date Diagnosed Date Obesity, Class II, BMI 35-39.9, isolated (see ac tual BMI) 05/14/2021 No transfusions per caodaism beliefs 05/12/2021 Hiatal hernia with gastroesophageal reflux 05/15 Seasonal allergies 05/15/2014 documented as of this encounter (statuses as of 08/24/2023) Resolved Problems Problem Noted Date Diagnosed Date Resolved Date NO SIGNIFICANT MED HX 2013 documented as of this encounter (statuses as of 08/24/2023) Immunizations Name Administration Dates Next Due COVID-19 mRNA, LNP-s, No Pre serve, 2-Dose Series (Viblio) 09/02/2020,08/12/2020 COVID-19, LNP-s, No Preserve , [place]anaco-sucrose, [...] Miscellaneous Notes * Telephone Encounter - Timur Hlal DO - 08/24/2023 8:19 AM EDTSigned Prescriptions: Disp Refills clonazePAM 0.5 MG Oral Tablet (KlonoPIN) 30 Tab*0 Sig: Take 1 Tablet by mouth 3 times a day as needed for Anxiety. Authorizing Provider: TIMUR HALL * Telephone Encounter - [facility] - 08/22/2023 2:33 PM EDTPending Prescriptions: Disp Refills clonazePAM 0.5 MG Oral Tablet (KlonoPIN) 30 Tab*0 Sig: Take 1 Tablet by mouth 3 times a day as needed for Anxiety. * Telephone Encounter - Loretta López RPh - 08/22/2023 2:33 PM EDT I have reviewed the patients controlled substance dispensing history in the Prescription Drug Monitoring Program in compliance with the [facility] regulations before prescribing a controlled substance. PDMP checked on 08/22/2023. Pending Prescriptions: Disp Refills clonazePAM 0.5 MG Oral Tablet (KlonoPIN) 30 Tab*0 Sig: Take 1 Tablet by mouth 3 times a day as needed for Anxiety. Last Visit: 06/10/2023 (in office), Visit date not found (telemedicine) Next Visit: 09/14/2023 Date medication was last filled: 07/25/23 Date medication is due for refill: 08/03/23 Pharmacy: [id number] [id number] [place] Is this request for a controlled substance? Yes and Urine Drug Screen Not completed Toxicology results: No results found for this or any previous visit. Please approve if appropriate. Thanks, Loretta López Clinical Pharmacist Centralized Clinical Pharmacy Services (CCPS) (Formerly Telepharmacy) [phone] 08/22/2023, 2:33 PM Electronically signed by [facility] at 08/22/2023 2:33 PM EDT documented in this encounter Plan of Treatment Upcoming Encounters Date Type Department Care Team (Late st Contact Info) Description 09/14/2023 8:50 AM EDT Office Visit [facility] [address] [place] [address] Timur Hall DO [address] [place] [address] Health Maintenance Due Date Last Done Comments [...] Documents on File Type Date Recorded Patient Airline Counter Agent Expl anation Power of Physician Office Clin Asst 05/15/2021 POWER OF A TTORNEY Latest Code [...] the patient have Health Care Power of Physician Office Clin Asst? No Care Teams Switchboard Installer Relationship Specialty Start Date End Date Timur Hall DO [address] [place] [address] PCP - General Family Medicine 12/02/13 documented as of this encounter
--- OUTSIDE RECORDS SUMMARY | 2023-11-21 23:27 | External Medical Summary | Summary of Care ---
Author Name Unknown Organization [facility] Address [address] [place] [address] Phone [phone] Care Team Providers Care Dye Operator Name Role Phone Timur Hall DO Primary Care Provider Reason for Visit * Reason Onset Date Comments Medication Refill 10/16/2023 Encounter Details Date Type Department Care Team (Late st Contact Info) Description 10/16/2023 Refill [facility] [address] [place] [address] Timur Hall DO [address] [place] [address] SYEDA (generalized anxiety disorder) Allergies Active Allergy Reactions Criticality Noted Date Comments Erythromycin 08/07/1997 gi upset Penicillin G 08/07/1997 rash documented as of this encounter (statuses as of 10/19/2023) Medications Medication Sig Dispensed Refills Start Date End Date Status Multivitamin Adult Oral Tablet Take by mouth. 0 Active Acetaminophen 325 MG Oral Tablet (Tylenol) Take 3 Tablets by mouth every 8 hours. 30 Tablet 0 05/14/2021 Active Fluticasone Propionate 50 MCG/ACT Nasal Suspension (Flonase) Administer 1 [place] into nostril as needed for Rhinitis. 48 g 1 03/01/2023 Active busPIRone HCl 10 MG Oral Tablet (Buspar)Indicati ons:SYEDA (generalized anxiety disorder) Take 1 Tablet by mouth 2 times a day as needed for Anxiety. 40 Tablet 5 06/10/2023 Active Pantoprazole Sodium 20 MG Oral Tablet Delayed Release (Protonix) Take 1 Tablet by mouth in the morning. 90 Tablet 3 06/10/2023 Active ARIPiprazole 5 MG Oral Tablet (Abilify) Take 1 Tablet by mouth in the morning. 30 Tablet 5 09/28/2023 Active clonazePAM 0.5 MG Oral Tablet (KlonoPIN)Indica tions:SYEDA (generalized anxiety disorder) Take 1 Tablet by mouth 3 times a day as needed for Anxiety. 30 Tablet 0 10/19/2023 Active clonazePAM 0.5 MG Oral Tablet (KlonoPIN)Indica tions:SYEDA (generalized anxiety disorder) Take 1 Tablet by mouth 3 times a day as needed for Anxiety. 30 Tablet 0 09/21/2023 10/16/2023 Discontinued (Refill) documented as of this encounter (statuses as of 10/19/2023) Active Problems Problem Noted Date Diagnosed Date Other mixed anxiety disorders 09/28/2023 Mood disorder 09/28/2023 Obesity, Class II, BMI 35-39.9, isolated (see ac tual BMI) 05/14/2021 No transfusions per temple beliefs 05/12/2021 Hiatal hernia with gastroesophageal reflux 05/15 Seasonal allergies 05/15/2014 documented as of this encounter (statuses as of 10/19/2023) Resolved Problems Problem Noted Date Diagnosed Date Resolved Date NO SIGNIFICANT MED HX 2013 documented as of this encounter (statuses as of 10/19/2023) Immunizations Name Administration Dates Next Due COVID-19 mRNA, LNP-s, No Pre serve, 2-Dose Series (MiCursada) 09/02/2020,08/12/2020 COVID-19, LNP-s, No Preserve , [place]-sucrose, Ages 12+ (Pfizer) 04/24/2021 Covid-19, Mrna, Lnp-s, Pf, Bivalent, 30 Mcg, IM, 12 yrs and above (Pfizer) 03/12/2022 Seasonal Influenza, PF, 6 M & above, IM , (FluLaval or Fluzone) 03/29/2022,03/14/2021,03/01/2020,10/23/2 019 TDAP (age 10 and older)(Boostrix) 05/15/2014 [...] Telephone Encounter - Timur Hall DO - 10/19/2023 10:47 AM EDTSigned Prescriptions: Disp Refills clonazePAM 0.5 MG Oral Tablet (KlonoPIN) 30 Tab*0 Sig: Take 1 Tablet by mouth 3 times a day as needed for Anxiety. Authorizing Provider: TIMUR HALL * Telephone Encounter - Giselle Chatman [facility] - 10/18/2023 6:49 AM EDT Pending Prescriptions: Disp Refills clonazePAM 0.5 MG Oral Tablet (KlonoPIN) 30 Tab*0 Sig: Take 1 Tablet by mouth 3 times a day as needed for Anxiety. * Telephone Encounter - Giselle Chatman RPh - 10/18/2023 6:49 AM EDT I have reviewed the patients controlled substance dispensing history in the Prescription Drug Monitoring Program in compliance with the [facility] regulations before prescribing a controlled substance. PDMP checked on 10/18/2023. Pending Prescriptions: Disp Refills clonazePAM 0.5 MG Oral Tablet (KlonoPIN) 30 Tab*0 Sig: Take 1 Tablet by mouth 3 times a day as needed for Anxiety. Last Visit: 09/07/2023 (in office), Visit date not found (telemedicine) Next Visit: Visit date not found Date medication was last filled: 09/20 Date medication is due for refill: 09/30 Pharmacy: [id number] [facility] Is this request for a controlled substance? Yes and Urine Drug Screen Not completed Toxicology results: No results found for this or any previous visit. Please approve if appropriate. Thank you, Giselle Chatman, PharmD. Clinical Pharmacist Centralized Clinical Pharmacy Services (CCPS) (formerly Telepharmacy) 10/18/2023, 6:49 AM documented in this encounter Plan of Treatment Upcoming Encounters Date Type Department Care Team (Late st Contact Info) Description 10/21/2023 6:30 PM [facility] [address] [place] [address] Binu Caballero MD [address] [place] [address] 02/16/2024 9:00 AM EDT Telemedicine Psychiatry, [place] [address] [place] [address] Grace Rey CRNP [address] [facility] [place] [address] Health Maintenance Due Date Last Done [...] Documents on File Type Date Recorded Patient Boat Camp Operator Expl anation Power of Airport Operations Manager 05/15/2021 POWER OF A TTORNEY Latest Code [...] the patient have Health Care Power of Airport Operations Manager? No Care Teams Dye Operator Relationship Specialty Start Date End Date Timur Hall DO [address] [place] [address] PCP - General Family Medicine 12/02/13 documented as of this encounter
--- OUTSIDE RECORDS SUMMARY | 2023-11-21 23:27 | External Medical Summary | Summary of Care ---
Author Name Unknown Organization [facility] Address [address] [place] [address] Phone [phone] Care Team Providers Care Family Member Caretaker Name Role Phone Sophia Murillo Primary Care Provider Reason for Visit * Reason Comments NEW PATIENT Depression Anxiety Sleep Problems Panic Attack Medication Management Trauma * - Authorized Specialty Diagnoses / Procedures Referred By Adams peña Referred To Contact Referral ID Status Reason Start Date Expiration Date V isits Requested Visits Authorized [id number] Authorized 09/12/2023 09/10/2024 [id number] Encounter Details Date Type Department Care Team (Late st Contact Info) Description 09/14/2023 4:00 PM EDT Telemedicine [facility] [address] [place] [address] Jennifer Hoskins LCSW [address], [place] [id number] PTSD (post-traumatic stress disorder)* Allergies Active Allergy Reactions Criticality Noted Date Comments Erythromycin 08/07/1997 gi upset Penicillin G 08/07/1997 rash documented as of this encounter (statuses as of 09/14/2023) Medications Medication Sig Dispensed Refills Start Date End Date Status Multivitamin Adult Oral Tablet Take by mouth. 0 Active Acetaminophen 325 MG Oral Tablet (Tylenol) Take 3 Tablets by mouth every 8 hours. 30 Tablet 0 05/14/2021 Active Fluticasone Propionate 50 MCG/ACT Nasal Suspension (Flonase) Administer 1 [place] into nostril as needed for Rhinitis. 48 g 1 03/01/2023 Active busPIRone HCl 10 MG Oral Tablet (Buspar)Indication s:GAGE (generalized anxiety disorder) Take 1 Tablet by mouth 2 times a day as needed for Anxiety. 40 Tablet 5 06/10/2023 Active Pantoprazole Sodium 20 MG Oral Tablet Delayed Release (Protonix) Take 1 Tablet by mouth in the morning. 90 Tablet 3 06/10/2023 Active Cetirizine HCl 10 MG Oral Tablet (ZyrTEC)Indication s:Seasonal allergies TAKE ONE TABLET BY MOUTH EVERY MORNING 90 Tablet 0 07/19/2023 07/18/2024 Active clonazePAM 0.5 MG Oral Tablet (KlonoPIN)Indicati ons:GAGE (generalized anxiety disorder) Take 1 Tablet by mouth 3 times a day as needed for Anxiety. 30 Tablet 0 08/24/2023 Active Venlafaxine HCl ER 37.5 MG Oral Capsule Extended Release 24 Hour (Effexor XR) Take 1 Capsule by mouth in the morning. 0 Active documented as of this encounter (statuses as of 09/14/2023) Active Problems Problem Noted Date Diagnosed Date Obesity, Class II, BMI 35-39.9, isolated (see ac tual BMI) 05/14/2021 No transfusions per voodoo beliefs 05/12/2021 Hiatal hernia with gastroesophageal reflux 05/15 Seasonal allergies 05/15/2014 documented as of this encounter (statuses as of 09/14/2023) Resolved Problems Problem Noted Date Diagnosed Date Resolved Date NO SIGNIFICANT MED HX 2013 documented as of this encounter (statuses as of 09/14/2023) Immunizations Name Administration Dates Next Due COVID-19 mRNA, LNP-s, No Pre serve, 2-Dose Series ([employer]) 09/02/2020,08/12/2020 COVID-19, LNP-s, No Preserve , Guanaco-sucrose, Ages 12+ ([employer]) 04/24/2021 Covid-19, Mrna, Lnp-s, Pf, Bivalent, 30 [...] on file documented as of this encounter Progress Notes * Jennifer Hoskins LCSW - 09/14/2023 3:57 PM EDT Images from the original note were not included. Psychiatry Intake Assessment Patient location: HOME. I was not in a hospital or clinic location. After connecting through televideo, patient was verified with two unique identifiers. Patient (or authorized legal medical service representative) was then informed that this was a Telemedicine visit and being conducted confidentially over secure lines. Methods to assure confidentiality were taken. Patient acknowledged consent and understanding of privacy and security of the Telemedicine visit. The patient agreed to participate. Provider reviewed elements of Outpatient Services Description including limits of confidentiality, how to contact the department, risks and benefits of treatment and consent for treatment. Patient is unable to sign acknowledgment receiving form. Signature will be obtained when Covid 19 crisis has passed and in person services resume. For [facility] members, Encounter Form unable to be signed, signature exempt - Telehealth, and will beobtained when Covid 19 crisis has passed and in person services resume. Start Time: 3:58 PM Stop Time: 4:46 PM Total Time: 48 minutes History of Present Illness Reason for Referral: Jesse Paredes is 37 year old. Referred by Family Practice, Sophia Hughes DO for Anxiety and Depression Brief History of Present Illness: Patient reports experiencing anxiety, and depression for about 3.5 years now since pt's father . Pt's Ronel present for intake. Ronel shared that 2 weeks ago pt was experienced heightened anxiety symptoms and pt also expressed guilt for not providing since not feeling well. Pt described symptom as, Heart racing, nightmares, trouble being in public and now more in crowded space, flashbacks, trembling, shortness of breath. Self employed, having trouble working consistently and took months before returning to work after his father . Pt father 5 weeks after being diagnosed with Lukemia in April and he returned to work in September the following year. Pt identified as self medicating through the use of alcohol in addition to his medication regularly. Pt reported 3-4 beers a day and trying not to. Pt has alcoholism on paternal side of the family. Potential causes/stressors/trauma include: Father passing. Patient's goal is Medication Management. Screening Questionnaires: 09/07/2023 09/14/2023 PSYCH QUESTIONNAIRES TOTAL Adult PHQ-9 Total Score 12 13 [place] Suicide Severity Rating Scale Results 09/14/2023 16:02 [place] SUICIDE SEVERITY RATING SCALE (C-SSRS) Have [...] 3 months? No Level of Risk Low Gage-7 Question 09/14/2023 3:51 PM EDT - Filed by Patient Over the last 2 weeks, how often have you been bothered by the following problems? Feeling nervous, anxious, or on edge Nearly every day Not being able to stop or control worrying Nearly every day Worrying too much about different things Nearly every day Trouble relaxing Nearly every day Being so restless that is hard to sit still Nearly every day Becoming easily annoyed or irritable Several days Feeling afraid as if something awful might happen Not at all Total score of all questions (range: 0 - 21) 16 (Severe) Myc Visit Accident Related Question Question 09/14/2023 3:51 PM EDT - Filed by Patient Is this visit related to an accident? (i.e work, motor vehicle) No SISQ - How many times in the past year have you used an illegal drug or used a prescription medicine for non-medical reasons? 0 How many times in the past year have you had X or more drinks in a day? 0 (x=5 for men and 4 for women) Panic Disorder Screening Have you experienced the following: Palpitations, pounding heart, or accelerated heart rate - Yes/No Sweating - Yes/No Trembling or shaking - Yes/No Sensations of shortness of breath or smothering - Yes/No A feeling of choking - Yes/No Chest pain or discomfort - Yes/No Nausea or abdominal distress - Yes/No Feeling dizzy, unsteady, lightheaded, or faint - Yes/No Feelings of unreality (derealization) or being detached from oneself (depersonalization) - Yes/No Fear of losing control or going crazy - Yes/No Fear of dying - Yes/No Numbness or tingling sensations (paresthesias) - Yes/No Chills or hot flushes - Yes/No PTSD Brief screening Sometimes things happen to people that are unusually or especially frightening, horrible, or traumatic. For example: a serious accident or fire a physical or sexual assault or abuse an earthquake or flood a war seeing someone be killed or seriously injured having a loved one through homicide or suicide. Have you ever experienced this kind of event? YES / NO If no, screen total = 0. Please stop here. If yes, please answer the questions below. In the past month, have you... Had nightmares about the event(s) or thought about the event(s) when you did not want to? YES / NO Tried hard not to think about the event(s) or went out of your way to avoid situations that reminded you of the event(s)? YES / NO Been constantly on guard, watchful, or easily startled? YES / NO [place] numb or detached from people, activities, or your surroundings? YES / NO [place] guilty or unable to stop blaming yourself or others for the event(s) or any problems the event(s) may have caused? YES / NO Past History The patient's past history was reviewed and updated. Past Psychiatry History: Are you currently being treated for a mental health or substance use condition? Yes: Diagnosis: PTSD Ever been treated as an outpatient (such as a doctor's or therapist's office or a clinic) for a mental health or substance use condition? No Ever been hospitalized for a mental health or substance use condition? No Ever been to the emergency room for a mental health or substance use condition? No Have you overdosed in the last month? No Mental Status Exam Appearance: age-appropriate and bearded Behavior: appropriate and restless Speech: goal directed Mood: anxious and dysphoric Affect: mood-congruent Thought Process: goal directed Thought Content: Delusions: No Hallucinations: No Obsessions: No Homicidal: No Suicidal: No Sensorium: alert and oriented to person, place, time and situation Cognition: grossly intact Insight: fair Judgment: fair Assessment and Plan Diagnostic Impression: Diagnoses listed below are provisional and further assessment and differential diagnosis is needed. ICD-10-CM 1. PTSD (post-traumatic stress disorder) F43.10 Recommendations/Plan: Full Treatment plan will be deferred to the clinician to whom the patient has been assigned. Acute Access Adult Psychiatry for Medication Consultation: Functional Impairment Interactive Complexity: involved interactive complexity due to maladaptive communication (high anxiety, high reactivity, repeated questions, and/or disagreement). Main Office # for Behavioral Health: [phone] National Suicide Prevention Lifeline : 988 Crisis Textline : Text "HOME" to 324788 to connect with a crisis counselor Crisis Numbers by [facility]: [place] [facility] - Emergency Services Freya (2-328-7-YOU CAN) re:solve Crisis Network [place] & [place] . The [facility] - Crisis Intervention [place] [facility] Crisis Help-Line [place] & [place] [facility] - Crisis Intervention Services [facility] Service Access [employer] [place]. - Crisis Intervention [place] Choose option [address] [place] [address] of Paper Guillotine Operator Khoa Jimenez & José Miguel Crisis Intervention [place] [facility] - Mental Health Crisis [place] [facility] - Crisis Intervention [place] [facility] - Crisis Intervention Attila Thomas Potter - Crisis Line Willie Gee Pike - Mental Health Crisis Hotline [place] [facility] - Crisis Services [place] [facility] [place] Service Access Hypecal, Miso Media. - Crisis Intervention Karina - Mental Health Crisis Intervention Services [facility] MH/ID Program [facility], Christy, Kenna - Crisis System [place] [facility] Human Services - Crisis Hotline [place] & [place] (4-825-503-HELP) [place] [facility] - Crisis Intervention Jack [facility] - Crisis Intervention Services [place] [facility] - Crisis Services Jose [facility] Health - Crisis Center Bonifacio [facility] - Crisis Hotline Katey (8:30 am-5:00 pm) OR (after 5:00 pm, weekends & holidays) Stevie [facility] Crisis Intervention Program [place] [facility] - Mental Health Crisis Line [place], [place] and [place] [facility] Crisis Jason & [place] [facility] - Crisis Intervention [place] [facility] - Mental Health Crisis Service [place] [facility] - Crisis Intervention [place] [facility] - Crisis Intervention Nora & [place] [facility] - Help Line [facility] MH/ID Program [facility] - Crisis Intervention [place] [facility] - Crisis Intervention [place] [facility] Emergency Services, [facility] - Crisis Intervention [place] [facility] Behavioral Health - Emergency Services [place] [facility] - Crisis Line [place] - DB[facility]IDS - Suicide and Crisis Intervention Hotline Annie [facility] - Crisis/ Emergency Services [place] [facility] - Emergency Contact Line [place] [facility] - Crisis Line Corey ext. 1 [place] [facility] Action - Crisis Intervention Hotline [place] [facility] Crisis Intervention Services documented in this encounter Plan of Treatment Health Maintenance Due Date Last Done Comments [...] as of this encounter Visit Diagnoses Diagnosis PTSD (post-traumatic stress disorder)- Primary Posttraumatic stress disorder documented in this encounter Advance Directives Documents on File Type Date Recorded Patient Ep Specialist Expl anation Power of Job Compositor 05/15/2021 POWER OF A TTORNEY Latest Code [...] the patient have Health Care Power of Job Compositor? No Care Teams Family Member Caretaker Relationship Specialty Start Date End Date Sophia Murillo DO [address] [place] [address] PCP - General Family Medicine 12/02/13 documented as of this encounter
--- OUTSIDE RECORDS SUMMARY | 2023-11-21 23:27 | External Medical Summary | Summary of Care ---
Author Name Unknown Organization [facility] Address [address] [place] [address] Phone [phone] Care Team Providers Care Hvac Mechanic Name Role Phone Timur Hall DO Primary Care Provider [phone] Reason for Visit * Reason Onset Date Comments Medication Refill 05/25/2023 Encounter Details Date Type Department Care Team (Late st Contact Info) Description 05/25/2023 Refill [facility] [address] [place] [address] Timur Hall DO [address] [place] [address] SYEDA (generalized anxiety disorder) Allergies Active Allergy Reactions Criticality Noted Date Comments Erythromycin 08/07/1997 gi upset Penicillin G 08/07/1997 rash documented as of this encounter (statuses as of 05/25/2023) Medications Medication Sig Dispensed Refills Start Date End Date Status Multivitamin Adult Oral Tablet Take by mouth. 0 Active Acetaminophen 325 MG Oral Tablet (Tylenol) Take 3 Tablets by mouth every 8 hours. 30 Tablet 0 05/14/2021 Active Sertraline HCl 25 MG Oral Tablet (Zoloft)Indicati ons:SYEDA (generalized anxiety disorder) TAKE ONE TABLET BY MOUTH EVERY DAY IN THE MORNING TAKE IN ADDITION TO THE 50 MG TABLET TO MAKE A TOTAL OF 75 MG. 90 Tablet 5 09/27/2022 09/27/2023 Active Cetirizine HCl 10 MG Oral Tablet (ZyrTEC)Indicati ons:Seasonal allergies TAKE ONE TABLET BY MOUTH EVERY MORNING 90 Tablet 3 08/09/2022 08/09/2023 Active Sertraline HCl 50 MG Oral Tablet (Zoloft) TAKE ONE TABLET BY MOUTH EVERY MORNING 90 Tablet 3 08/09/2022 08/24/2023 Active Pantoprazole Sodium 20 MG Oral Tablet Delayed Release (Protonix) TAKE ONE TABLET BY MOUTH EVERY MORNING 90 Tablet 3 08/09/2022 08/09/2023 Active Fluticasone Propionate 50 MCG/ACT Nasal Suspension (Flonase) Administer 1 [place] into nostril as needed for Rhinitis. 48 g 1 03/01/2023 Active clonazePAM 0.5 MG Oral Tablet (KlonoPIN)Indica tions:SYEDA (generalized anxiety disorder) Take 1 Tablet by mouth 3 times a day as needed for Anxiety. 30 Tablet 0 05/25/2023 Active clonazePAM 0.5 MG Oral Tablet (KlonoPIN)Indica tions:SYEDA (generalized anxiety disorder) Take 1 Tablet by mouth 3 times a day as needed for Anxiety. 30 Tablet 0 04/14/2023 05/25/2023 Discontinued (Refill) documented as of this encounter (statuses as of 05/25/2023) Active Problems Problem Noted Date Diagnosed Date Obesity, Class II, BMI 35-39.9, isolated (see ac tual BMI) 05/14/2021 No transfusions per shinto beliefs 05/12/2021 Hiatal hernia with gastroesophageal reflux 05/15 Seasonal allergies 05/15/2014 documented as of this encounter (statuses as of 05/25/2023) Resolved Problems Problem Noted Date Diagnosed Date Resolved Date NO SIGNIFICANT MED HX 2013 documented as of this encounter (statuses as of 05/25/2023) Immunizations Name Administration Dates Next Due COVID-19 mRNA, LNP-s, No Pre serve, 2-Dose Series ([employer]) 09/02/2020,08/12/2020 COVID-19, LNP-s, No Preserve , [place]anaco-sucrose, [...] Telephone Encounter - Timur Hall DO - 05/25/2023 2:31 PM ESTSigned Prescriptions: Disp Refills clonazePAM 0.5 MG Oral Tablet (KlonoPIN) 30 Tab*0 Sig: Take 1 Tablet by mouth 3 times a day as needed for Anxiety. Authorizing Provider: TIMUR HALL * Telephone Encounter - Aurelia Peralta [facility] - 05/25/2023 1:09 PM ESTPending Prescriptions: Disp Refills clonazePAM 0.5 MG Oral Tablet (KlonoPIN) 30 Tab*0 Sig: Take 1 Tablet by mouth 3 times a day as needed for Anxiety. * Telephone Encounter - Aurelia Peralta RPh - 05/25/2023 1:07 PM EST I have reviewed the patients controlled substance dispensing history in the Prescription Drug Monitoring Program in compliance with the [facility] regulations before prescribing a controlled substance. PDMP checked on 05/25/2023. Per PDMP last fill was 03/16, per adherence tracker, RX last filled on 04/14/23. Pending Prescriptions: Disp Refills clonazePAM 0.5 MG Oral Tablet (KlonoPIN) 30 Tab*0 Sig: Take 1 Tablet by mouth 3 times a day as needed for Anxiety. Last Visit: 09/27/2022 (in office), Visit date not found (telemedicine) Next Visit: 06/10/2023 Date medication was last filled: 04/14 Date medication is due for refill: 05/03 Pharmacy: [id number] [address] Is this request for a controlled substance? Yes and Urine Drug Screen Not completed Toxicology results: No results found for this or any previous visit. Please approve if appropriate. Thank you, Aurelia Peralta, PharmD Clinical Pharmacist Centralized Clinical Pharmacy Services ([facility]PS) (formerly Telepharmacy) [phone] 05/25/2023, 1:07 PM documented in this encounter Plan of Treatment Upcoming Encounters Date Type Department Care Team (Late st Contact Info) Description 06/10/2023 10:50 AM EST Office Visit [facility] [address] [place] [id number] Timur Hall DO [address] [place] [address] Health Maintenance Due Date Last Done Comments [...] Documents on File Type Date Recorded Patient Special Warfare Operator Expl anation Power of Tank Assembler 05/15/2021 POWER OF A TTORNEY Latest Code [...] the patient have Health Care Power of Tank Assembler? No Care Teams Hvac Mechanic Relationship Specialty Start Date End Date Timur Hall DO [address] [place] [address] PCP - General Family Medicine 12/02/13 documented as of this encounter
--- OUTSIDE RECORDS SUMMARY | 2023-11-21 23:27 | External Medical Summary | Summary of Care ---
Author Name Unknown Organization [facility] Address [address] [place] [address] Phone [phone] Care Team Providers Care Mutual Fund Manager Name Role Phone Timur Hall DO Primary Care Provider [phone] Reason for Visit * Reason Onset Date Comments Medication Refill 07/24/2023 Encounter Details Date Type Department Care Team (Late st Contact Info) Description 07/24/2023 Refill [facility] [address] [place] [address] Timur Hall DO [address] [place] [address] SYEDA (generalized anxiety disorder) Allergies Active Allergy Reactions Criticality Noted Date Comments Erythromycin 08/07/1997 gi upset Penicillin G 08/07/1997 rash documented as of this encounter (statuses as of 07/25/2023) Medications Medication Sig Dispensed Refills Start Date End Date Status Multivitamin Adult Oral Tablet Take by mouth. 0 Active Acetaminophen 325 MG Oral Tablet (Tylenol) Take 3 Tablets by mouth every 8 hours. 30 Tablet 0 05/14/2021 Active Fluticasone Propionate 50 MCG/ACT Nasal Suspension (Flonase) Administer 1 [place] into nostril as needed for Rhinitis. 48 [...] needed for Anxiety. 30 Tablet 0 07/25/2023 Active clonazePAM 0.5 MG Oral Tablet (KlonoPIN)Indica tions:SYEDA (generalized anxiety disorder) Take 1 Tablet by mouth 3 times a day as needed for Anxiety. 30 Tablet 0 06/24/2023 07/24/2023 Discontinue d(Refill) documented as of this encounter (statuses as of 07/25/2023) Active Problems Problem Noted Date Diagnosed Date Obesity, Class II, BMI 35-39.9, isolated (see ac tual BMI) 05/14/2021 No transfusions per scientology beliefs 05/12/2021 Hiatal hernia with gastroesophageal reflux 05/15 Seasonal allergies 05/15/2014 documented as of this encounter (statuses as of 07/25/2023) Resolved Problems Problem Noted Date Diagnosed Date Resolved Date NO SIGNIFICANT MED HX 2013 documented as of this encounter (statuses as of 07/25/2023) Immunizations Name Administration Dates Next Due COVID-19 mRNA, LNP-s, No Pre serve, 2-Dose Series (InferX) 09/02/2020,08/12/2020 COVID-19, LNP-s, No Preserve , Guanaco-sucrose, [...] Telephone Encounter - Timur Hall DO - 07/25/2023 1:32 PM ESTSigned Prescriptions: Disp Refills clonazePAM 0.5 MG Oral Tablet (KlonoPIN) 30 Tab*0 Sig: Take 1 Tablet by mouth 3 times a day as needed for Anxiety. Authorizing Provider: TIMUR HALL * Telephone Encounter - Severo Lee [facility] - 07/25/2023 12:35 PM ESTPending Prescriptions: Disp Refills clonazePAM 0.5 MG Oral Tablet (KlonoPIN) 30 Tab*0 Sig: Take 1 Tablet by mouth 3 times a day as needed for Anxiety. * Telephone Encounter - Severo Lee RP - 07/25/2023 12:34 PM EST I have reviewed the patients controlled substance dispensing history in the Prescription Drug Monitoring Program in compliance with the [facility] regulations before prescribing a controlled substance. PDMP checked on 07/25/2023. Pending Prescriptions: Disp Refills clonazePAM 0.5 MG Oral Tablet (KlonoPIN) 30 Tab*0 Sig: Take 1 Tablet by mouth 3 times a day as needed for Anxiety. Last Visit: 06/10/2023 (in office), Visit date not found (telemedicine) Next Visit: 09/14/2023 Date medication was last filled: 06-24-23 Date medication is due for refill: 07-04-23 Pharmacy: [facility] [address] [place] [address] [address] [facility] Is this request for a controlled substance? Yes and Urine Drug Screen Not completed Toxicology results: No results found for this or any previous visit. Please approve if appropriate. Thanks, Severo Lee, Tiesha.Ph. Clinical Pharmacist Centralized Clinical Pharmacy Services [phone] ext [phone] 07/25/2023,12:35 PM documented in this encounter Plan of Treatment Upcoming Encounters Date Type Department Care Team (Late st Contact Info) Description 09/14/2023 8:50 AM EDT Office Visit [facility] [address] [place] [phone] Timur Hall DO [address] [place] [address] Health Maintenance Due Date Last Done Comments [...] Documents on File Type Date Recorded Patient Mortgage Broker Expl anation Power of Improvement Nurse 05/15/2021 POWER OF A TTORNEY Latest Code [...] the patient have Health Care Power of Improvement Nurse? No Care Teams Mutual Fund Manager Relationship Specialty Start Date End Date Timur Hall DO [address] [address] PCP - General Family Medicine 12/02/13 documented as of this encounter
--- OUTSIDE RECORDS SUMMARY | 2023-11-21 23:27 | External Medical Summary | Summary of Care ---
Author Name Unknown Organization [facility] Address [address] [place] [address] Phone [phone] Care Team Providers Care Lead Setter Name Role Phone OfeSophia montgomery Christine FORD Primary Care Provider [phone] Encounter Details Date Type Department Care Team (Late st Contact Info) Description 07/20/2023 Orders Only PATIENT PORTAL DO NOT DELETE THIS DEPT USED BY [facility] [id number] Allergies Active Allergy Reactions Criticality Noted Date Comments Erythromycin 08/07/1997 gi upset Penicillin G 08/07/1997 rash documented as of this encounter (statuses as of 07/20/2023) Medications Medication Sig Dispensed Refills Start Date End Date Status Multivitamin Adult Oral Tablet Take by mouth. 0 Active Acetaminophen 325 MG Oral Tablet (Tylenol) Take 3 Tablets by mouth every 8 hours. 30 Tablet 0 05/14/2021 Active Fluticasone Propionate 50 MCG/ACT Nasal Suspension (Flonase) Administer 1 [place] into nostril as needed for Rhinitis. 48 g 1 03/01/2023 Active busPIRone HCl 10 MG Oral Tablet (Buspar)Indication s:SYEDA (generalized anxiety disorder) Take 1 Tablet by mouth 2 times a day as needed for Anxiety. 40 Tablet 5 06/10/2023 Active Venlafaxine HCl ER 37.5 MG Oral Capsule Extended Release 24 Hour (Effexor XR)Indications:SYEDA (generalized anxiety disorder) Take 1 Capsule by mouth in the morning. Do not cut, crush or chew. 90 Capsule 5 06/10/2023 Active Pantoprazole Sodium 20 MG Oral Tablet Delayed Release (Protonix) Take 1 Tablet by mouth in the morning. 90 Tablet 3 06/10/2023 Active clonazePAM 0.5 MG Oral Tablet (KlonoPIN)Indicati ons:SYEDA (generalized anxiety disorder) Take 1 Tablet by mouth 3 times a day as needed for Anxiety. 30 Tablet 0 06/24/2023 Active Cetirizine HCl 10 MG Oral Tablet (ZyrTEC)Indication s:Seasonal allergies TAKE ONE TABLET BY MOUTH EVERY MORNING 90 Tablet 0 07/19/2023 07/18/2024 Active documented as of this encounter (statuses as of 07/20/2023) Active Problems Problem Noted Date Diagnosed Date Obesity, Class II, BMI 35-39.9, isolated (see ac tual BMI) 05/14/2021 No transfusions per jewish beliefs 05/12/2021 Hiatal hernia with gastroesophageal reflux 05/15 Seasonal allergies 05/15/2014 documented as of this encounter (statuses as of 07/20/2023) Resolved Problems Problem Noted Date Diagnosed Date Resolved Date NO SIGNIFICANT MED HX 2013 documented as of this encounter (statuses as of 07/20/2023) Immunizations Name Administration Dates Next Due COVID-19 mRNA, LNP-s, No Pre serve, 2-Dose Series (rPath) 09/02/2020,08/12/2020 COVID-19, LNP-s, No Preserve , [place]anaco-sucrose, [...] Description 09/14/2023 8:50 AM EDT Office Visit [facility] [address] [facility] [place] [id number] Sophia Murillo DO [address] [facility] [id number] Health Maintenance Due Date Last Done Comments [...] Documents on File Type Date Recorded Patient Business Enterprise Officer Expl anation Power of Sealer Aircraft 05/15/2021 POWER OF A TTORNEY Latest Code [...] the patient have Health Care Power of Sealer Aircraft? No Care Teams Lead Setter Relationship Specialty Start Date End Date Sophia Murillo DO [address] [place] [id number] PCP - General Family Medicine 12/02/13 documented as of this encounter
--- NOTE | 2023-11-22 09:30 | History & Physical ---
Date of Service November 22, 2023 Impression / Recommendations Impression 38 yo man with history of PTSD vs complicated bereavement after sudden of his father in 2019, alcohol use disorder and recent diagnosis of BPAD admitted for increased depression, anxiety, SI and inability to function. Diagnostically his presentation seems most consistent with MDD with anxious distress as well as SYEDA as well as possibility for contribution from prolonged withdrawal side effects from alcohol use. His recent diagnosis of BPAD is unclear as he denies any history of hypomania nor kevin. Discussed medication treatment options in detail. Discussed risks, benefits and alternatives. Patient would like to start and consented to mirtazapine for MDD/SYEDA/insomnia and gabapentin prn as off-label use for anxiety and alcohol use disorder. He also wishes to continue his prior to admission Abilify for depression augmentation, escitalopram for MDD/SYEDA and Klonopin for insomnia/SYEDA. Reviewed side effects including but not limited to: GI, CLARK, sexual side effects, and counseled on black box warning of potential for emergence of or increased SI and need to let staff know should this occur or should they feel unsafe. Also discussed importance of seeking emergency care following discharge if this side effect occurs in the future with escitalopram; sedation/increased appetite with mirtazpine; dizziness, respiratory suppression, not to combine with alcohol with gabapentin, increased risks when used with benzodiazepines; addictive potential, fatal respiratory suppression if combined with alcohol with Klonopin; movement (TD, NMS), cardiac (QTc prolongation), and metabolic (stroke, insulin resistance) and necessity for fasting lipid and glucose labwork and AIMS done with score of 0 with Abilify. Reviewed goal of eventually stopping Klonopin but given long-term use and current severe anxiety this will need to be done slowly. His audit score and use history suggests problematic substance use in the past. Brief intervention was offered and accepted. Intervention was greater than 5 minutes in length and included assessing readiness to quit, advice on how to reduce or abstain and to set a specific goal for this hospitalization. structural steel worker helper will also assist in anticipating barriers to reducing or abstaining from substance use and in problem-solving for solutions to those problems while arranging for referral to appropriate treatment. The patient is in action stage with regards to transtheoretical model of change and has not consumed any alcohol since August. He remains motivated to avoid future use and denies any current cravings. Should cravings emerge again in the future would encourage use of naltrexone. Overall I spent a total of 75 minutes for this admission including review of chart records, review of labwork, direct evaluation of the patient, counseling the patient, ordering medication, risk assessment, discussion with the psychiatric liason RN and documentation in the electronic health record. (1) Depression with suicidal ideation: (2) Recurrent severe major depressive disorder with anxiety: (3) SYEDA (generalized anxiety disorder): (4) ADHD: (5) Alcohol use disorder: Plan 11/22/2023: The patient was admitted to the [facility] ([facility] mental [facility] unit) on q15 min checks (behavioral with suicide precautions) for safety. The patient will participate in group, recreational, and milieu therapies and will be offered additional individual and family sessions as clinically appropriate. -Continue prior to admission medications: * Abilify 15mg qd * Klonopin 0.5mg HS -Increase escitalopram to 10mg qd -start mirtazapine 15mg HS -start gabapentin 100mg TID prn for anxiety Inventory Assets Strengths: supportive relationships, willing to get treatment Needs: safety and stabilization, medication adjustment, additional coping skills, increased outpatient services Suicide Risk Level Suicide Risk Level: High-Moderate (q15 min suicide checks) (increased depression and anxiety with SI but feels safe in the hospital and able to ask for support if needed) Risk Factors Assessment Male: Yes : Yes Do You Have Access To A Gun?: No (guns has already been removed from the home) Health Problems: No Mental Health Diagnoses: Yes Substance Use Disorders: Yes Previous Attempt: No Family History of Suicide: No Previous Psychiatric Hospitalization: No Hopelessness: Yes Protective Factors Assessment : Yes Employed: Yes Stable Relationships: Yes Supportive Family: Yes Good Rapport with Provider: Yes Psychiatric History Identifying Data RHONA DAVIS is a 38-year-old man who currently lives in [place] with his , and 14 yo twins, has a history of PTSD and recent diagnosis of BPAD, and was admitted on 11/21/23 17:53 on a 201 voluntary commitment for increased depression, anxiety, SI, and inability to function. Chief Complaint "It's debilitating". History of Present Illness Humberto presents for psychiatric admission for worsening anxiety, depression and SI in the context of multiple psychosocial stressors including recent of his father and work strain. His outpatient psychiatrist recommended that he come to the hospital for inpatient treatment as outpatient interventions have not provided enough support. He's been experiencing severe anxiety with ruminative worries and hasn't been able to work in the last week. Yesterday he went to work but notes "things I've been doing for 20 years I'm questioning my competency, I don't think I can do it, I don't feel capable". 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 Yesterday he felt so overwhelmed by his thoughts that he had to pace around the house "because it was the only thing I could do to keep from hurting myself". He's been experiencing SI. He stopped drinking alcohol in June and has relapsed twice since then. Since not drinking alcohol his anxiety has gotten worse and worse. He's been trialing a variety of medications with his PCP and now outpatient psychiatrist since September to try to treat his anxiety and depression. He endorses depressive symptoms including anhedonia, tearfulness, hopelessness, helplessness, decreased energy, decreased motivation, decreased concentration, decreased sleep, decreased appetite. He endorses anxiety symptoms including excessive worry, restlessness, fatigue, insomnia, decreased concentration. He hasn't experienced any panic attacks. He is currently prescribed psychiatric medications of Klonopin for insomnia (has been on this for >1 year) and Vistaril for insomnia, Abilify 15mg daily (denies any akathisia or increased anxiety with dose increase), escitalopram 5mg daily. Psychiatric ROS notable for no current nor history of symptoms of kevin, psychosis, OCD nor eating disorder. He does endorse history of self-harm in August by hitting his head with his thermos. Past Psychiatric History Previous Psych History: He feels his mental health worsened for the first time after his father in Apr 2020 and started drinking a lot of alcohol. He was diagnosed with PTSD following this and his drinking continued to increase until Jun 2023. During thi s time he notes his desire to live went down more and more. Diagnosed with ADHD as a child Current Psychiatric Diagnosis: PTSD, BPAD Outpatient Services: Dr. Caballero for psychiatry at [facility], no therapist Previous Psych Admissions: none Do You Have Access To A Gun?: No (guns has already been removed from the home) History of Previous Suicide Attempt: No Past Medication Trials: sertraline for anxiety/depression (not effective, got to a dose of about 100mg, tried in 2020 for about two years), Effexor (caused SI), Abilify trial in September (dose slowly increased, it helped his mood initially for about 5-6 weeks but then he developed more anxiety and depression again). No history of medications for ADHD. Past Head Trauma/Neuro History History of Concussion/Seizure: Yes history of 2 prior concussions, +LOC Allergies Allergy/AdvReac Type Severity Reaction Status Date / Time erythromycin base Allergy Mild . Verified 04/21/18 12:38 Penicillins Allergy Mild . Verified 04/21/18 12:38 Home Medications Medication Instructions Recorded Confirmed Type cetirizine 10 mg tablet 10 mg PO QAM 04/21/18 11/21/23 History dicyclomine 20 mg tablet 20 mg PO TID PRN abdominal 04/21/18 11/21/23 Rx cramping #20 tabs fluticasone propionate 50 1 spray intranasal DAILY PRN 04/21/18 11/21/23 History mcg/actuation nasal Congestion spray,suspension ondansetron 4 mg disintegrating 4 mg PO TID #20 tabs 04/21/18 11/21/23 Rx tablet pantoprazole 40 mg tablet,delayed 40 mg PO QAM 04/21/18 11/21/23 History release aripiprazole 15 mg tablet (Abilify) PO DAILY 11/21/23 History clonazepam PO PM 11/21/23 History escitalopram oxalate PO DAILY 11/21/23 History Family History Family History of: Depression (father), Anxiety (father), Alcoholism/Drug Abuse (both sides) and Other-List under Comment (ADHD-brothers) Alcohol History Hx of Alcohol Use Over the Past 12 Months: No (sober since august of 2023) AUDIT Total Score: 19 No alcohol use since end august, no current cravings. His has been a big support in his sobriety. Smoking Use Have You Smoked or Used Tobacco Products in the Last 30 Days: No Smoking Status: Never smoker Substance History Hx of Prescription Med Misuse Over the Past 12 Months: No Hx of Over the Counter Med Misuse Over the Past 12 Months: No Hx of Inhalent Misuse Over the Past 12 Months: No Hx of Organic Substance Use Over the Past 12 Months: No Hx of Illegal Substances/Street Drug Use Over Past 12 Months: No Problems as a Result of Past Substance Use: None Identified Personal History Living Arrangements: Home Highest Grade Completed: High School Graduate Employment Status: Self-Employed (contractor) Marital Status: Number Of Children: 14 yo twins-boy and girl Beliefs That Will Affect Care: None Current Legal Problems: No Hx Legal Problems: No Hx Traumatic Life Events: Yes Patient History Medical History (Updated 11/22/23 @ 11:12 by Lissett Brooks MD) ADHD No pertinent family history Bipolar disorder Surgical History No pertinent past surgical history Social History Smoking Status: Never smoker Preferred Language: Romanian Communication Ability: Effective Visual Impairment: No Limitations Hearing Ability: Normal Cardiovascular Physician Assistant Required: No Beliefs That Will Affect Care: None Feels Safe at Home: Yes Gender Identity: Male Assistive Devices: Glasses Review of Systems Review of Systems: All systems reviewed & are unremarkable except as noted in HPI & below Physical Exam Psychiatric: Orientation: alert and oriented x 3 Apperance: appropriately dressed and appropriately groomed Eye Contact: + fair eye contact Motor Behavior: no abnormal motor movements Speech: normal rate/rhythm/volume of speech Affect: + depressed affect, + anxious affect and + tearful affect Mood: + depressed mood and + anxious mood Thought Process: goal directed thought process Thought Content: reality based without delusions Suicidal Thoughts: denies suicidal plan and denies suicidal intent; + reports suicidal thoughts (intermittent thoughts ) Homicidal Thoughts: denies homicidal thoughts Hallucinations: no auditory hallucinations and no visual hallucinations Cognition: recent memory grossly intact, remote memory grossly intact, attention grossly intact and language grossly intact Estimated Intelligence: consistent with education level Insight: + limited insight Judgment: + limited judgement Vital Signs (Past 24 Hours): Last Vital Signs Temp 36.9 C 11/22/23 06:00 Pulse 87 11/22/23 06:40 Resp 18 11/22/23 06:00 BP 122/81 11/22/23 06:40 Pulse Ox 99 11/21/23 18:30 O2 Del Method Room Air 11/21/23 18:45 Exam Statement: A physical exam was performed in the ED by Dr. Slick for the purposes of medical clearance. I accept that physical as correct and adequate for the purposes of the inpatient physical exam. Results & Data [facility] Laboratory Results Laboratory Results - last 24 hr 11/21/23 11/21/23 14:12 14:21 WBC 8.98 RBC 5.07 Hgb 15.3 Hct 44.7 MCV 88.2 MCH 30.2 MCHC 34.2 RDW Std Deviation 39.1 RDW Coeff of Talisha 12.1 Plt Count 292 MPV 9.7 Immature Gran % (Auto) 0.4 Neut % (Auto) 75.4 Lymph % (Auto) 16.1 [place] % (Auto) 7.1 Eos % (Auto) 0.6 Baso % (Auto) 0.4 Neut # (Auto) 6.76 H Lymph # (Auto) 1.45 [place] # (Auto) 0.64 H Eos # (Auto) 0.05 Baso # (Auto) 0.04 Immature Gran # (Auto) 0.04 Sodium 139 Potassium 3.9 Chloride 105 Carbon Dioxide 28 Anion Gap 6 BUN 21 Creatinine 1.10 Est Cr Clr Drug Dosing 105.4 Est GFR ( Amer) 96.8 Est GFR (Non-Af Amer) 83.5 BUN/Creatinine Ratio 19.1 Glucose 95 Calcium 9.9 Total Bilirubin 0.6 AST 20 ALT 24 Alkaline Phosphatase 60 Total Protein 7.9 Albumin 4.9 Globulin 3.0 Albumin/Globulin Ratio 1.6 TSH 1.344 Urine Color Yellow Urine Appearance Clear Urine pH 5.5 Ur Specific [place] 1.007 Urine Protein Negative Urine Glucose (UA) Negative Urine Ketones Negative Urine Blood Negative Urine Nitrite Negative Urine Bilirubin Negative Urine Urobilinogen Negative Ur Leukocyte Esterase Negative Salicylates < 3.0 L Urine Opiates Screen Neg Ur Methadone, Qual Neg Urine Fentanyl Screen Neg Acetaminophen < 3 L Urine Barbiturates Neg Ur Phencyclidine (PCP) Neg U Amphetamin/Meth Scrn Neg MDMA (Ecstasy) Screen Neg U Benzodiazepines Scrn Neg Ur Cocaine Metabolite Neg U Marijuana (THC) Screen Neg Ethyl Alcohol mg/dL < 10.0 SARS-CoV-2, RNA, NAAT NEGATIVE Current Inpatient Medications Current Inpatient Medications: Current Inpatient Medications Acetaminophen (Acetaminophen 325 Mg Tab) 650 mg PO Q4H PRN PRN Reason: Headache or Minor Fever Stop: 12/21/23 17:52 Al Hydrox/Mg Hydrox/Simethicone (Aluminum/Magnesium Susp 30 Ml Udc) 30 ml PO Q4H PRN PRN Reason: GI Upset Stop: 12/21/23 17:52 Bismuth Subsalicylate (Bismuth Subsalicylate Liqd 236 Ml) 15 ml PO PRN PRN PRN Reason: Loose Stool Stop: 12/21/23 17:52 Hydroxyzine HCl (Hydroxyzine Hcl 25 Mg Tab) 50 mg PO HSZ PRN PRN Reason: Insomnia Stop: 12/21/23 17:52 Hydroxyzine HCl (Hydroxyzine Hcl 25 Mg Tab) 25 mg PO Q4H PRN PRN Reason: Anxiety Stop: 12/21/23 17:52 Magnesium Hydroxide (Magnesium Hydroxide Susp 30 Ml Udc) 30 ml PO DAILY PRN PRN Reason: Constipation Stop: 12/21/23 17:52 Sodium Chloride (Sodium Chloride 0.65% Na Soln 45 Ml ([place])) 1 - 2 sprays NA PRN PRN PRN Reason: Nasal Dryness/Congestion Stop: 12/21/23 17:52
[2023-11-22] MEDS: CETIRIZINE HCL 10 MG TABLET PO SCH (11:07)
[2023-11-22] MEDS: PANTOprazole 40 MG TAB PO SCH (11:08)
[2023-11-22] MEDS: ESCITALOPRAM OXALATE 10 MG TAB PO SCH (11:08)
[2023-11-22] MEDS: ARIPiprazole 15 MG TAB PO SCH (11:10)
[2023-11-22] MEDS: MIRTAZAPINE TAB 15 MG TAB PO SCH (21:30)
[2023-11-22] MEDS: clonazePAM 0.5 MG TAB PO SCH (21:32)
[2023-11-23] MEDS: GABAPENTIN 100 MG CAP PO PRN (07:47)
[2023-11-23 08:34] LABS: Estimated Average Glucose 100 mg/dl; Hemoglobin A1C 5.1 % (4.5-5.6)
[2023-11-23 08:37] LABS: Chol HDL Ratio 4.4 (0-5)
--- NOTE | 2023-11-23 09:26 | Psychiatric Progress Note ---
Date of Service November 23, 2023 Impression / Recommendations Impression 38 yo man with history of PTSD vs complicated bereavement after sudden of his father in 2020, alcohol use disorder and recent diagnosis of BPAD admitted for increased depression, anxiety, SI and inability to function. Diagnostically his presentation seems most consistent with MDD with anxious distress as well as SYEDA as well as possibility for contribution from prolonged withdrawal side effects from alcohol use. His recent diagnosis of BPAD is unclear as he denies any history of hypomania nor kevin. A: Ongoing depression and anxiety but reports feeling a little better today. Tolerating medication adjustments so far. Wants to continue with current medications. Has gabapentin prn available, has not had to utilize this yet. Reviewed fasting labwork-glucose normal, HbA1c normal, TGs normal, cholesterol elevated slightly at 201, LDL in low risk category. Overall, I spent a total of 25 minutes on this case including meeting with the patient, reviewing the chart, nursing report, multidisciplinary team meeting, orders, and documentation. (1) Depression with suicidal ideation: (2) Recurrent severe major depressive disorder with anxiety: (3) SYEDA (generalized anxiety disorder): (4) ADHD: (5) Alcohol use disorder: Plan 11/23/2023: Continue current medications and tx plan 11/22/2023: The patient was admitted to the [facility]) on q15 min checks (behavioral with suicide precautions) for safety. The patient will participate in group, recreational, and milieu therapies and will be offered additional individual and family sessions as clinically appropriate. -Continue prior to admission medications: * Abilify 15mg qd * Klonopin 0.5mg HS -Increase escitalopram to 10mg qd -start mirtazapine 15mg HS -start gabapentin 100mg TID prn for anxiety Inventory Assets Strengths: supportive relationships, willing to get treatment Needs: safety and stabilization, medication adjustment, additional coping skills, increased outpatient services Suicide Risk Level Suicide Risk Level: High-Moderate (q15 min suicide checks) (increased depression and anxiety with SI but feels safe in the hospital and able to ask for support if needed) Suicide Risk Level Comments: Risk Factors Assessment Male: Yes : Yes Do You Have Access To A Gun?: No (guns has already been removed from the home) Health Problems: No Mental Health Diagnoses: Yes Substance Use Disorders: Yes Previous Attempt: No Family History of Suicide: No Previous Psychiatric Hospitalization: No Hopelessness: Yes Protective Factors Assessment : Yes Employed: Yes Stable Relationships: Yes Supportive Family: Yes Good Rapport with Provider: Yes Interval History Identifying Information RHONA DAVIS is a 38-year-old man who currently lives in [place] with his , and 14 yo twins, has a history of PTSD and recent diagnosis of BPAD, and was admitted on 11/21/23 17:53 on a 201 voluntary commitment for increased depression, anxiety, SI, and inability to function. Chief Complaint "Kind of a rollercoaster this morning". Review of Systems Sleep Information Total Hours of Sleep: 8 Sleep Comments: Klonopin 0.5mg HS Meal Information Percent Meal Consumed - Breakfast: 100 Percent Meal Consumed - Lunch: 100 Percent Meal Consumed - Dinner: 100 Subjective Subjective Patient was seen & assessed and interval progress reviewed with treatment team nursing and social work. Attending groups but not participating. Feels he slept well last night with the mirtazapine, took a nap today but doesn't feel he is experiencing any excessive sedation. A lot of anxiety this morning after being on the phone with his but reports it was "irrational" but was able to use some coping skills, has not required any prn medication. Denies any medication side effects. Physical Exam Psychiatric Orientation: alert and oriented x 3 Apperance: appropriately dressed and appropriately groomed Eye Contact: + fair eye contact Motor Behavior: no abnormal motor movements Speech: normal rate/rhythm/volume of speech Affect: + constricted affect Mood: + depressed mood and + anxious mood Thought Process: goal directed thought process Thought Content: reality based without delusions Suicidal Thoughts: denies suicidal plan and denies suicidal intent; + reports suicidal thoughts (intermittent thoughts ) Homicidal Thoughts: denies homicidal thoughts Hallucinations: no auditory hallucinations and no visual hallucinations Cognition: recent memory grossly intact, remote memory grossly intact, attention grossly intact and language grossly intact Estimated Intelligence: consistent with education level Insight: + limited insight Judgment: + limited judgement Vital Signs (Past 24 Hours) Last Vital Signs Temp 36.3 C L 11/23/23 06:00 Pulse 79 11/23/23 06:33 Resp 16 11/23/23 06:00 BP 122/82 11/23/23 06:33 Pulse Ox 99 11/21/23 18:30 O2 Del Method Room Air 11/21/23 18:45 Results & Data ([facility]) Laboratory Results Laboratory Results - last 24 hr 11/23/23 07:55 Glucose 101 H Estimat Average Glucose 100 Hemoglobin A1c 5.1 Triglycerides 131 Cholesterol 201 H LDL Cholesterol, Calc 129 VLDL Cholesterol, Calc 26 HDL Cholesterol 46 Cholesterol/HDL Ratio 4.4 Current Inpatient Medications Current Inpatient Medications: Current Inpatient Medications Acetaminophen (Acetaminophen 325 Mg Tab) 650 mg PO Q4H PRN PRN Reason: Headache or Minor Fever Stop: 12/21/23 17:52 Al Hydrox/Mg Hydrox/Simethicone (Aluminum/Magnesium Susp 30 Ml Udc) 30 ml PO Q4H PRN PRN Reason: GI Upset Stop: 12/21/23 17:52 Aripiprazole (Aripiprazole 15 Mg Tab) 15 mg PO QAM YESSICA Stop: 12/22/23 10:29 Last Admin: 11/23/23 07:47 Dose: 15 mg Bismuth Subsalicylate (Bismuth Subsalicylate Liqd 236 Ml) 15 ml PO PRN PRN PRN Reason: Loose Stool Stop: 12/21/23 17:52 Cetirizine HCl (Cetirizine Hcl 10 Mg Tablet) 10 mg PO QAM YESSICA Stop: 12/22/23 10:29 Last Admin: 11/23/23 07:48 Dose: 10 mg Clonazepam (Clonazepam 0.5 Mg Tab) 0.5 mg PO HS YESSICA Stop: 12/22/23 21:59 Last Admin: 11/22/23 21:32 Dose: 0.5 mg Escitalopram Oxalate (Escitalopram Oxalate 10 Mg Tab) 10 mg PO QAM YESSICA Stop: 12/22/23 10:29 Last Admin: 11/23/23 07:47 Dose: 10 mg Gabapentin (Gabapentin 100 Mg Cap) 100 mg PO TID PRN PRN Reason: Anxiety/Agitation Stop: 12/22/23 13:59 Last Admin: 11/23/23 07:47 Dose: 100 mg Hydroxyzine HCl (Hydroxyzine Hcl 25 Mg Tab) 50 mg PO HSZ PRN PRN Reason: Insomnia Stop: 12/21/23 17:52 Hydroxyzine HCl (Hydroxyzine Hcl 25 Mg Tab) 25 mg PO Q4H PRN PRN Reason: Anxiety Stop: 12/21/23 17:52 Magnesium Hydroxide (Magnesium Hydroxide Susp 30 Ml Udc) 30 ml PO DAILY PRN PRN Reason: Constipation Stop: 12/21/23 17:52 Mirtazapine (Mirtazapine Tab 15 Mg Tab) 15 mg PO HS YESSICA Stop: 12/22/23 21:59 Last Admin: 11/22/23 21:30 Dose: 15 mg Pantoprazole Sodium (Pantoprazole 40 Mg Tab) 20 mg PO QAM YESSICA Stop: 12/22/23 10:29 Last Admin: 11/23/23 07:47 Dose: 20 mg Sodium Chloride (Sodium Chloride 0.65% Na Soln 45 Ml ([place])) 1 - 2 sprays NA PRN PRN PRN Reason: Nasal Dryness/Congestion Stop: 12/21/23 17:52 Mental Health & Subst Abuse Tx Therapist Name of Therapist: N/A Retort Load Expediter Name of Retort Load Expediter: N/A Post Discharge Appointments Primary Care Physician Name Of Family Doctor/PCP: DR. HALL
--- NOTE | 2023-11-24 08:54 | Psychiatric Progress Note ---
Date of Service November 24, 2023 Impression / Recommendations Impression 38 yo man with history of PTSD vs complicated bereavement after sudden of his father in 2019, alcohol use disorder and recent diagnosis of BPAD admitted for increased depression, anxiety, SI and inability to function. Diagnostically his presentation seems most consistent with MDD with anxious distress as well as SYEDA as well as possibility for contribution from prolonged withdrawal side effects from alcohol use. His recent diagnosis of BPAD is unclear as he denies any history of hypomania nor kevin. A: Ongoing depression and anxiety, more difficulty with sleep last night and higher intensity of anxiety today at times. Tolerating medications, found initial trial of prn gabapentin helpful. Overall, I spent a total of 25 minutes on this case including meeting with the patient, reviewing the chart, nursing report, multidisciplinary team meeting, orders, and documentation. (1) Depression with suicidal ideation: (2) Recurrent severe major depressive disorder with anxiety: (3) SYEDA (generalized anxiety disorder): (4) ADHD: (5) Alcohol use disorder: Plan 11/24/2023: Continue current medications and tx plan. 11/23/2023: Continue current medications and tx plan 11/22/2023: The patient was admitted to the [facility] ([facility] mental health unit) on q15 min checks (behavioral with suicide precautions) for safety. The patient will participate in group, recreational, and milieu therapies and will be offered additional individual and family sessions as clinically appropriate. -Continue prior to admission medications: * Abilify 15mg qd * Klonopin 0.5mg HS -Increase escitalopram to 10mg qd -start mirtazapine 15mg HS -start gabapentin 100mg TID prn for anxiety Inventory Assets Strengths: supportive relationships, willing to get treatment Needs: safety and stabilization, medication adjustment, additional coping skills, increased outpatient services Suicide Risk Level Suicide Risk Level: High-Moderate (q15 min suicide checks) (increased depression and anxiety with SI but feels safe in the hospital and able to ask for support if needed) Suicide Risk Level Comments: Risk Factors Assessment Male: Yes : Yes Do You Have Access To A Gun?: No (guns has already been removed from the home) Health Problems: No Mental Health Diagnoses: Yes Substance Use Disorders: Yes Previous Attempt: No Family History of Suicide: No Previous Psychiatric Hospitalization: No Hopelessness: Yes Protective Factors Assessment : Yes Employed: Yes Stable Relationships: Yes Supportive Family: Yes Good Rapport with Provider: Yes Interval History Identifying Information RHONA DAVIS is a 38-year-old man who currently lives in [place] with his , and 14 yo twins, has a history of PTSD and recent diagnosis of BPAD, and was admitted on 11/21/23 17:53 on a 201 voluntary commitment for increased depression, anxiety, SI, and inability to function. Chief Complaint "Not as good as yesterday". Review of Systems Sleep Information Total Hours of Sleep: 7.5 Sleep Comments: Klonopin 0.5mg HS Meal Information Percent Meal Consumed - Breakfast: 90 Percent Meal Consumed - Lunch: 100 Percent Meal Consumed - Dinner: 100 Subjective Subjective Patient was seen & assessed and interval progress reviewed with treatment team nursing and social work. Isolative during the day but in the evening out more with his peers and attended a few evening groups. Still with flat affect. Had more awakenings last night, didn't sleep as well. Today increased anxiety even when doing things he enjoyed like a game with peers forcing him to take a break and leave. He wonders if this might be due to not sleeping as well last night. Tried dose of prn gabapentin at about 2:30pm and found this helpful for anxiety, likes that it doesn't make him tired like Vistaril does. Met with his vault clerk this afternoon. Denies any medication side effects. Physical Exam Psychiatric Orientation: alert and oriented x 3 Apperance: appropriately dressed and appropriately groomed Eye Contact: + fair eye contact Motor Behavior: no abnormal motor movements Speech: normal rate/rhythm/volume of speech Affect: + constricted affect Mood: + depressed mood and + anxious mood Thought Process: goal directed thought process Thought Content: reality based without delusions Suicidal Thoughts: denies suicidal plan and denies suicidal intent; + reports suicidal thoughts (intermittent thoughts ) Homicidal Thoughts: denies homicidal thoughts Hallucinations: no auditory hallucinations and no visual hallucinations Cognition: recent memory grossly intact, remote memory grossly intact, attention grossly intact and language grossly intact Estimated Intelligence: consistent with education level Insight: + limited insight Judgment: + limited judgement Vital Signs (Past 24 Hours) Last Vital Signs Temp 36.1 C L 11/24/23 06:00 Pulse 96 H 11/24/23 06:18 Resp 16 11/24/23 06:00 BP 113/73 11/24/23 06:18 Pulse Ox 99 11/21/23 18:30 O2 Del Method Room Air 11/21/23 18:45 Results & Data ([facility]) Current Inpatient Medications Current Inpatient Medications: Current Inpatient Medications Acetaminophen (Acetaminophen 325 Mg Tab) 650 mg PO Q4H PRN PRN Reason: Headache or Minor Fever Stop: 12/21/23 17:52 Al Hydrox/Mg Hydrox/Simethicone (Aluminum/Magnesium Susp 30 Ml Udc) 30 ml PO Q4H PRN PRN Reason: GI Upset Stop: 12/21/23 17:52 Aripiprazole (Aripiprazole 15 Mg Tab) 15 mg PO QAM YESSICA Stop: 12/22/23 10:29 Last Admin: 11/23/23 07:47 Dose: 15 mg Bismuth Subsalicylate (Bismuth Subsalicylate Liqd 236 Ml) 15 ml PO PRN PRN PRN Reason: Loose Stool Stop: 12/21/23 17:52 Cetirizine HCl (Cetirizine Hcl 10 Mg Tablet) 10 mg PO QAM YESSICA Stop: 12/22/23 10:29 Last Admin: 11/23/23 07:48 Dose: 10 mg Clonazepam (Clonazepam 0.5 Mg Tab) 0.5 mg PO HS YESSICA Stop: 12/22/23 21:59 Last Admin: 11/23/23 21:31 Dose: 0.5 mg Escitalopram Oxalate (Escitalopram Oxalate 10 Mg Tab) 10 mg PO QAM YESSICA Stop: 12/22/23 10:29 Last Admin: 11/23/23 07:47 Dose: 10 mg Gabapentin (Gabapentin 100 Mg Cap) 100 mg PO TID PRN PRN Reason: Anxiety/Agitation Stop: 12/22/23 13:59 Last Admin: 11/23/23 07:47 Dose: 100 mg Hydroxyzine HCl (Hydroxyzine Hcl 25 Mg Tab) 50 mg PO HSZ PRN PRN Reason: Insomnia Stop: 12/21/23 17:52 Hydroxyzine HCl (Hydroxyzine Hcl 25 Mg Tab) 25 mg PO Q4H PRN PRN Reason: Anxiety Stop: 12/21/23 17:52 Magnesium Hydroxide (Magnesium Hydroxide Susp 30 Ml Udc) 30 ml PO DAILY PRN PRN Reason: Constipation Stop: 07/10/24 17:52 Mirtazapine (Mirtazapine Tab 15 Mg Tab) 15 mg PO HS YESSICA Stop: 12/22/23 21:59 Last Admin: 11/23/23 21:31 Dose: 15 mg Pantoprazole Sodium (Pantoprazole 40 Mg Tab) 20 mg PO QAM YESSICA Stop: 12/22/23 10:29 Last Admin: 11/23/23 07:47 Dose: 20 mg Sodium Chloride (Sodium Chloride 0.65% Na Soln 45 Ml ([place])) 1 - 2 sprays NA PRN PRN PRN Reason: Nasal Dryness/Congestion Stop: 12/21/23 17:52 Mental Health & Subst Abuse Tx Therapist Name of Therapist: N/A Green Belt Name of Green Belt: N/A Post Discharge Appointments Primary Care Physician Name Of Family Doctor/PCP: DR. HALL
--- NOTE | 2023-11-25 09:20 | Psychiatric Progress Note ---
Date of Service November 25, 2023 Impression / Recommendations Impression 38 yo man with history of PTSD vs complicated bereavement after sudden of his father in 2020, alcohol use disorder and recent diagnosis of BPAD admitted for increased depression, anxiety, SI and inability to function. Diagnostically his presentation seems most consistent with MDD with anxious distress as well as SYEDA as well as possibility for contribution from prolonged withdrawal side effects from alcohol use. His recent diagnosis of BPAD is unclear as he denies any history of hypomania nor kevin. A: Mood starting to show some signs of improvement today, still with sleep difficulty. He consents to increasing mirtazapine to target insomnia and to provide further benefit for depression and anxiety. Overall, I spent a total of 25 minutes on this case including meeting with the patient, reviewing the chart, nursing report, multidisciplinary team meeting, orders, and documentation. (1) Depression with suicidal ideation: (2) Recurrent severe major depressive disorder with anxiety: (3) SYEDA (generalized anxiety disorder): (4) ADHD: (5) Alcohol use disorder: Plan 11/25/2023: Increase mirtazapine to 30mg HS. 11/24/2023: Continue current medications and tx plan. 11/23/2023: Continue current medications and tx plan 11/22/2023: The patient was admitted to the [facility] ([facility] health unit) on q15 min checks (behavioral with suicide precautions) for safety. The patient will participate in group, recreational, and milieu therapies and will be offered additional individual and family sessions as clinically appropriate. -Continue prior to admission medications: * Abilify 15mg qd * Klonopin 0.5mg HS -Increase escitalopram to 10mg qd -start mirtazapine 15mg HS -start gabapentin 100mg TID prn for anxiety Inventory Assets Strengths: supportive relationships, willing to get treatment Needs: safety and stabilization, medication adjustment, additional coping skills, increased outpatient services Suicide Risk Level Suicide Risk Level: Moderate (q15 min suicide checks) (increased depression and anxiety with SI but mood improving, feels safe in the hospital and able to ask for support if needed) Suicide Risk Level Comments: Risk Factors Assessment Male: Yes : Yes Do You Have Access To A Gun?: No (guns has already been removed from the home) Health Problems: No Mental Health Diagnoses: Yes Substance Use Disorders: Yes Previous Attempt: No Family History of Suicide: No Previous Psychiatric Hospitalization: No Hopelessness: Yes Protective Factors Assessment : Yes Employed: Yes Stable Relationships: Yes Supportive Family: Yes Good Rapport with Provider: Yes Interval History Identifying Information RHONA DAVIS is a 38-year-old man who currently lives in [place] with his , and 14 yo twins, has a history of PTSD and recent diagnosis of BPAD, and was admitted on 11/21/23 17:53 on a 201 voluntary commitment for increased depression, anxiety, SI, and inability to function. Chief Complaint "Much less anxious today". Review of Systems Sleep Information Total Hours of Sleep: 6.5 Sleep Comments: Klonopin 0.5mg HS Meal Information Percent Meal Consumed - Breakfast: 100 Percent Meal Consumed - Lunch: 100 Percent Meal Consumed - Dinner: 100 Subjective Subjective Patient was seen & assessed and interval progress reviewed with treatment team nursing and social work. Continuing to have a lot of anxiety especially anticipatory last evening. Today he reports a lessening of anxiety and was pleased he could think a bit more about work, he's not sure why he's exp eriencing less of this today. Still struggling with sleep, he would like to increase mirtazapine and see if this helps. Physical Exam Psychiatric Orientation: alert and oriented x 3 Apperance: appropriately dressed and appropriately groomed Eye Contact: + fair eye contact Motor Behavior: no abnormal motor movements Speech: normal rate/rhythm/volume of speech Affect: + constricted affect Mood: + depressed mood and + anxious mood Thought Process: goal directed thought process Thought Content: reality based without delusions Suicidal Thoughts: denies suicidal plan and denies suicidal intent; + reports suicidal thoughts (intermittent thoughts, lessening ) Homicidal Thoughts: denies homicidal thoughts Hallucinations: no auditory hallucinations and no visual hallucinations Cognition: recent memory grossly intact, remote memory grossly intact, attention grossly intact and language grossly intact Estimated Intelligence: consistent with education level Insight: + limited insight Judgment: + limited judgement Vital Signs (Past 24 Hours) Last Vital Signs Temp 36.6 C 11/25/23 06:45 Pulse 81 11/25/23 06:46 Resp 16 11/25/23 06:45 BP 132/91 11/25/23 06:46 Pulse Ox 99 11/21/23 18:30 O2 Del Method Room Air 11/21/23 18:45 Results & Data ([facility] [place]) Current Inpatient Medications Current Inpatient Medications: Current Inpatient Medications Acetaminophen (Acetaminophen 325 Mg Tab) 650 mg PO Q4H PRN PRN Reason: Headache or Minor Fever Stop: 12/21/23 17:52 Al Hydrox/Mg Hydrox/Simethicone (Aluminum/Magnesium Susp 30 Ml Udc) 30 ml PO Q4H PRN PRN Reason: GI Upset Stop: 12/21/23 17:52 Aripiprazole (Aripiprazole 15 Mg Tab) 15 mg PO QAM YESSICA Stop: 12/22/23 10:29 Last Admin: 11/25/23 08:01 Dose: 15 mg Bismuth Subsalicylate (Bismuth Subsalicylate Liqd 236 Ml) 15 ml PO PRN PRN PRN Reason: Loose Stool Stop: 12/21/23 17:52 Cetirizine HCl (Cetirizine Hcl 10 Mg Tablet) 10 mg PO QAM YESSICA Stop: 12/22/23 10:29 Last Admin: 11/25/23 08:00 Dose: 10 mg Clonazepam (Clonazepam 0.5 Mg Tab) 0.5 mg PO HS [facility] Stop: 12/22/23 21:59 Last Admin: 11/24/23 21:37 Dose: 0.5 mg Escitalopram Oxalate (Escitalopram Oxalate 10 Mg Tab) 10 mg PO QAM YESSICA Stop: 12/22/23 10:29 Last Admin: 11/25/23 08:00 Dose: 10 mg Gabapentin (Gabapentin 100 Mg Cap) 100 mg PO TID PRN PRN Reason: Anxiety/Agitation Stop: 12/22/23 13:59 Last Admin: 11/24/23 14:52 Dose: 100 mg Hydroxyzine HCl (Hydroxyzine Hcl 25 Mg Tab) 50 mg PO HSZ PRN PRN Reason: Insomnia Stop: 12/21/23 17:52 Hydroxyzine HCl (Hydroxyzine Hcl 25 Mg Tab) 25 mg PO Q4H PRN PRN Reason: Anxiety Stop: 12/21/23 17:52 Magnesium Hydroxide (Magnesium Hydroxide Susp 30 Ml Udc) 30 ml PO DAILY PRN PRN Reason: Constipation Stop: 12/21/23 17:52 Mirtazapine (Mirtazapine Tab 15 Mg Tab) 15 mg PO HS YESSICA Stop: 12/22/23 21:59 Last Admin: 11/24/23 21:37 Dose: 15 mg Pantoprazole Sodium (Pantoprazole 40 Mg Tab) 20 mg PO QAM YESSICA Stop: 12/22/23 10:29 Last Admin: 11/25/23 08:01 Dose: 20 mg Sodium Chloride (Sodium Chloride 0.65% Na Soln 45 Ml ([place])) 1 - 2 sprays NA PRN PRN PRN Reason: Nasal Dryness/Congestion Stop: 12/21/23 17:52 Mental Health & Subst Abuse Tx Psychiatrist Name of Psychiatrist: Dr. Binu Ching Psychiatrist's Date Of Appointment With Psychiatric Provider: 12/02/23 Time of Appointment with Psychiatrist: 6:00 pm Therapist Name of Therapist: Nuvia Ching Therapist's Date of Therapist Appointment: 11/29/23 Time of Therapist Appointment: 11:00 Therapy Appointment Comment: Telehealth Appointment Rawhide Trimmer Name of Rawhide Trimmer: N/A Post Discharge Appointments Primary Care Physician Name Of Family Doctor/PCP: DR. HALL
[2023-11-25] MEDS: MIRTAZAPINE TAB 15 MG TAB PO SCH (21:08)
[2023-11-26] MEDS: PANTOprazole 40 MG TAB PO SCH (09:09)
--- NOTE | 2023-11-26 15:07 | Psychiatric Progress Note ---
Date of Service November 26, 2023 Impression / Recommendations Impression 38 yo man with history of PTSD vs complicated bereavement after sudden of his father in 2020, alcohol use disorder and recent diagnosis of BPAD admitted for increased depression, anxiety, SI and inability to function. Diagnostically his presentation seems most consistent with MDD with anxious distress as well as SYEDA as well as possibility for contribution from prolonged withdrawal side effects from alcohol use. His recent diagnosis of BPAD is unclear as he denies any history of hypomania nor kevin. A: Patient is tolerating his medications well. Today clarified his diagnosis of MDD with anxious distress and alcohol use disorder. Would likely benefit from the increase in Lexapro. Appears to be precontemplative about quitting alcohol and was counseled on benefits of abstinence given depression, alcohol use disorder, and family history of depression and alcohol use disorder and associated risks. Overall, I spent a total of 40 minutes on this case including meeting with the patient, reviewing the chart, nursing report, multidisciplinary team meeting, orders, and documentation. (1) Depression with suicidal ideation: (2) Recurrent severe major depressive disorder with anxiety: (3) SYEDA (generalized anxiety disorder): (4) ADHD: (5) Alcohol use disorder: Plan 11/26/2023: Continue medications and treatment plan. 11/25/2023: Increase mirtazapine to 30mg HS. 11/24/2023: Continue current medications and tx plan. 11/23/2023: Continue current medications and tx plan 11/22/2023: The patient was admitted to the [facility] ([facility] mental health unit) on q15 min checks (behavioral with suicide precautions) for safety. The patient will participate in group, recreational, and milieu therapies and will be offered additional individual and family sessions as clinically appropriate. -Continue prior to admission medications: * Abilify 15mg qd * Klonopin 0.5mg HS -Increase escitalopram to 10mg qd -start mirtazapine 15mg HS -start gabapentin 100mg TID prn for anxiety Inventory Assets Strengths: supportive relationships, willing to get treatment Needs: safety and stabilization, medication adjustment, additional coping skills, increased outpatient services Suicide Risk Level Suicide Risk Level: Moderate (q15 min suicide checks) (increased depression and anxiety with SI but mood improving, feels safe in the hospital and able to ask for support if needed) Suicide Risk Level Comments: Risk Factors Assessment Male: Yes : Yes Do You Have Access To A Gun?: No (guns has already been removed from the home) Health Problems: No Mental Health Diagnoses: Yes Substance Use Disorders: Yes Previous Attempt: No Family History of Suicide: No Previous Psychiatric Hospitalization: No Hopelessness: Yes Protective Factors Assessment : Yes Employed: Yes Stable Relationships: Yes Supportive Family: Yes Good Rapport with Provider: Yes Interval History Identifying Information RHONA DAVIS is a 38-year-old man who currently lives in [place] with his , and 14 yo twins, has a history of PTSD and recent diagnosis of BPAD, and was admitted on 11/21/23 17:53 on a 201 voluntary commitment for increased depression, anxiety, SI, and inability to function. Chief Complaint "[]". Review of Systems Sleep Information Total Hours of Sleep: 8 Sleep Comments: Klonopin 0.5mg HS Meal Information Percent Meal Consumed - Breakfast: 100 Percent Meal Consumed - Lunch: 100 Percent Meal Consumed - Dinner: 100 Subjective Subjective Patient was seen & assessed and interval progress reviewed with nursing and social work Overnight no acute events. Patient reports initially presenting with increased anxiety, feeling overwhelmed with work. Reports having thoughts of self-harm to end the anxiety and get relief from. Denies current suicidal ideation or thoughts of self-harm. Patient is self-employed as a maharaj. He reports multiple major depressive episodes, more frequently in the last 3 to 5 years after his father . MDE symptoms include low mood, sleep maintenance dysfunction, low appetite with binging episodes, anhedonia, increased guilt. During these times he tends to isolate and marichuy with alcohol and food. During major depressive episodes he presents excess worry with ruminating thoughts; denies associated physical symptoms. Reports family history of depression in his father and alcohol dependence in multiple family members. Reports drinking to cope with anxiety and depression and recently relapsed twice this year. Is contemplating drinking again socially as he enjoys visiting different [place]. Reports past Zoloft at 100 mg and initially worked, Effexor for 2.5 weeks and discontinued because of escalating suicidal ideation. Patient reports his anxiety has improved and has an improved outlook on life. He is future oriented and wants to live for his family. He was educated about his diagnosis and potential for improvement. Tolerating medications well and reported improvement in sleep. Physical Exam Mental Examination Appearance: Well Groomed (appropriate) Eye Contact: Maintains Eye Contact Motor Behavior: Unremarkable Speech: Soft Mood: Sad Affect: Constricted Thought Process: Intact, Linear and Logical Thought Content: Intact and Linear Hallucinations: None Insight: Poor (to limited) Judgement: Poor (to limited) Vital Signs (Past 24 Hours) Last Vital Signs Temp 36.9 C 11/26/23 06:38 Pulse 98 H 11/26/23 06:39 Resp 16 11/26/23 06:38 BP 125/89 11/26/23 06:39 Pulse Ox 99 11/21/23 18:30 O2 Del Method Room Air 11/21/23 18:45 Results & Data ([facility]) Current Inpatient Medications Current Inpatient Medications: Current Inpatient Medications Acetaminophen (Acetaminophen 325 Mg Tab) 650 mg PO Q4H PRN PRN Reason: Headache or Minor Fever Stop: 12/21/23 17:52 Al Hydrox/Mg Hydrox/Simethicone (Aluminum/Magnesium Susp 30 Ml Udc) 30 ml PO Q4H PRN PRN Reason: GI Upset Stop: 12/21/23 17:52 Aripiprazole (Aripiprazole 15 Mg Tab) 15 mg PO QAM YESSICA Stop: 12/22/23 10:29 Last Admin: 11/26/23 09:08 Dose: 15 mg Bismuth Subsalicylate (Bismuth Subsalicylate Liqd 236 Ml) 15 ml PO PRN PRN PRN Reason: Loose Stool Stop: 12/21/23 17:52 Cetirizine HCl (Cetirizine Hcl 10 Mg Tablet) 10 mg PO QAM YESSICA Stop: 12/22/23 10:29 Last Admin: 11/26/23 09:08 Dose: 10 mg Clonazepam (Clonazepam 0.5 Mg Tab) 0.5 mg PO HS YESSICA Stop: 12/22/23 21:59 Last Admin: 11/25/23 21:08 Dose: 0.5 mg Escitalopram Oxalate (Escitalopram Oxalate 10 Mg Tab) 10 mg PO QAM YESSICA Stop: 12/22/23 10:29 Last Admin: 11/26/23 09:08 Dose: 10 mg Gabapentin (Gabapentin 100 Mg Cap) 100 mg PO TID PRN PRN Reason: Anxiety/Agitation Stop: 12/22/23 13:59 Last Admin: 11/24/23 14:52 Dose: 100 mg Hydroxyzine HCl (Hydroxyzine Hcl 25 Mg Tab) 50 mg PO HSZ PRN PRN Reason: Insomnia Stop: 12/21/23 17:52 Hydroxyzine HCl (Hydroxyzine Hcl 25 Mg Tab) 25 mg PO Q4H PRN PRN Reason: Anxiety Stop: 12/21/23 17:52 Magnesium Hydroxide (Magnesium Hydroxide Susp 30 Ml Udc) 30 ml PO DAILY PRN PRN Reason: Constipation Stop: 12/21/23 17:52 Mirtazapine (Mirtazapine Tab 15 Mg Tab) 30 mg PO HS YESSICA Stop: 12/25/23 21:59 Last Admin: 11/25/23 21:08 Dose: 30 mg Pantoprazole Sodium (Pantoprazole 40 Mg Tab) 40 mg PO QAM YESSICA Stop: 12/26/23 08:59 Last Admin: 11/26/23 09:09 Dose: 40 mg Sodium Chloride (Sodium Chloride 0.65% Na Soln 45 Ml ([place])) 1 - 2 sprays NA PRN PRN PRN Reason: Nasal Dryness/Congestion Stop: 12/21/23 17:52 Mental Health & Subst Abuse Tx Psychiatrist Name of Psychiatrist: Dr. Binu Ching Psychiatrist's Date Of Appointment With Psychiatric Provider: 12/02/23 Time of Appointment with Psychiatrist: 6:00 pm Therapist Name of Therapist: Nuvia Ching Therapist's Date of Therapist Appointment: 11/29/23 Time of Therapist Appointment: 11:00 Therapy Appointment Comment: Telehealth Appointment Ultimate Hoops Trainer Name of Ultimate Hoops Trainer: N/A Post Discharge Appointments Primary Care Physician Name Of Family Doctor/PCP: DR. HALL
--- NOTE | 2023-11-27 13:26 | Psychiatric Progress Note ---
Date of Service November 27, 2023 Impression / Recommendations Impression 38 yo man with history of PTSD vs complicated bereavement after sudden of his father in 2019, alcohol use disorder and recent diagnosis of BPAD admitted for increased depression, anxiety, SI and inability to function. Diagnostically his presentation seems most consistent with MDD with anxious distress as well as SYEDA as well as possibility for contribution from prolonged withdrawal side effects from alcohol use. His recent diagnosis of BPAD is unclear as he denies any history of hypomania nor kevin. A: Patient is presenting a more bright and reactive affect. He appears less anxious and is more future oriented. He is currently contemplative about alcohol abstinence and was educated about the relapse cycle. Conducted motivational interview. Overall, I spent a total of 30 minutes on this case including meeting with the patient, reviewing the chart, nursing report, multidisciplinary team meeting, orders, and documentation. (1) Recurrent severe major depressive disorder with anxiety: (2) SYEDA (generalized anxiety disorder): (3) Alcohol use disorder: (4) ADHD: Plan 11/27/2023: Continue current medications and treatment plan. 11/26/2023: Continue medications and treatment plan. 11/25/2023: Increase mirtazapine to 30mg HS. 11/24/2023: Continue current medications and tx plan. 11/23/2023: Continue current medications and tx plan 11/22/2023: The patient was admitted to the [facility] ([facility] unit) on q15 min checks (behavioral with suicide precautions) for safety. The patient will participate in group, recreational, and milieu therapies and will be offered additional individual and family sessions as clinically appropriate. -Continue prior to admission medications: * Abilify 15mg qd * Klonopin 0.5mg HS -Increase escitalopram to 10mg qd -start mirtazapine 15mg HS -start gabapentin 100mg TID prn for anxiety Inventory Assets Strengths: supportive relationships, willing to get treatment Needs: safety and stabilization, medication adjustment, additional coping skills, increased outpatient services Suicide Risk Level Suicide Risk Level: Moderate (q15 min suicide checks) (increased depression and anxiety with SI but mood improving, feels safe in the hospital and able to ask for support if needed) Suicide Risk Level Comments: Risk Factors Assessment Male: Yes : Yes Do You Have Access To A Gun?: No (guns has already been removed from the home) Health Problems: No Mental Health Diagnoses: Yes Substance Use Disorders: Yes Previous Attempt: No Family History of Suicide: No Previous Psychiatric Hospitalization: No Hopelessness: Yes Protective Factors Assessment : Yes Employed: Yes Stable Relationships: Yes Supportive Family: Yes Good Rapport with Provider: Yes Interval History Identifying Information RHONA DAVIS is a 38-year-old man who currently lives in [place] with his , and 14 yo twins, has a history of PTSD and recent diagnosis of BPAD, and was admitted on 11/21/23 17:53 on a 201 voluntary commitment for increased depression, anxiety, SI, and inability to function. Chief Complaint "[]". Review of Systems Sleep Information Total Hours of Sleep: 7.75 Sleep Comments: Klonopin 0.5mg HS Meal Information Percent Meal Consumed - Breakfast: 100 Percent Meal Consumed - Lunch: 100 Percent Meal Consumed - Dinner: 100 Subjective Subjective Patient was seen & assessed and interval progress reviewed with nursing and social work Overnight no acute events. No PRNs given. The patient reports feeling "pretty good". He reports not sleeping well but does not feel tired today. Portz having energy for the day. We discussed sleep hygiene techniques such as not eating close to bedtime, waking up at the same time every day, no screens in hour prior to bed time. He reports past periods of escalating alcohol intake and became a problem. He noted multiple past relapses and has become worse over the last year. I introduced the stages of change model and we discussed how this impacts insight into one's dependence. He denies suicidal ideation. He reports good support from his . Physical Exam Mental Examination Appearance: Well Groomed (appropriate) Eye Contact: Maintains Eye Contact Motor Behavior: Unremarkable Speech: Soft Mood: Sad Affect: Constricted Thought Process: Intact, Linear and Logical Thought Content: Intact and Linear Hallucinations: None Insight: Poor (to limited) Judgement: Poor (to limited) Vital Signs (Past 24 Hours) Last Vital Signs Temp 36.7 C 11/27/23 06:38 Pulse 88 11/27/23 06:39 Resp 16 11/27/23 06:38 BP 133/92 11/27/23 06:39 Pulse Ox 99 11/21/23 18:30 O2 Del Method Room Air 11/21/23 18:45 Results & Data ([facility]) Current Inpatient Medications Current Inpatient Medications: Current Inpatient Medications Acetaminophen (Acetaminophen 325 Mg Tab) 650 mg PO Q4H PRN PRN Reason: Headache or Minor Fever Stop: 12/21/23 17:52 Al Hydrox/Mg Hydrox/Simethicone (Aluminum/Magnesium Susp 30 Ml Udc) 30 ml PO Q4H PRN PRN Reason: GI Upset Stop: 12/21/23 17:52 Aripiprazole (Aripiprazole 15 Mg Tab) 15 mg PO QAM YESSICA Stop: 12/22/23 10:29 Last Admin: 11/27/23 08:55 Dose: 15 mg Bismuth Subsalicylate (Bismuth Subsalicylate Liqd 236 Ml) 15 ml PO PRN PRN PRN Reason: Loose Stool Stop: 12/21/23 17:52 Cetirizine HCl (Cetirizine Hcl 10 Mg Tablet) 10 mg PO QAM YESSICA Stop: 12/22/23 10:29 Last Admin: 11/27/23 08:56 Dose: 10 mg Clonazepam (Clonazepam 0.5 Mg Tab) 0.5 mg PO HS YESSICA Stop: 12/22/23 21:59 Last Admin: 11/26/23 21:05 Dose: 0.5 mg Escitalopram Oxalate (Escitalopram Oxalate 10 Mg Tab) 10 mg PO QAM YESSICA Stop: 12/22/23 10:29 Last Admin: 11/27/23 08:56 Dose: 10 mg Gabapentin (Gabapentin 100 Mg Cap) 100 mg PO TID PRN PRN Reason: Anxiety/Agitation Stop: 12/22/23 13:59 Last Admin: 11/24/23 14:52 Dose: 100 mg Hydroxyzine HCl (Hydroxyzine Hcl 25 Mg Tab) 50 mg PO HSZ PRN PRN Reason: Insomnia Stop: 12/21/23 17:52 Hydroxyzine HCl (Hydroxyzine Hcl 25 Mg Tab) 25 mg PO Q4H PRN PRN Reason: Anxiety Stop: 12/21/23 17:52 Magnesium Hydroxide (Magnesium Hydroxide Susp 30 Ml Udc) 30 ml PO DAILY PRN PRN Reason: Constipation Stop: 12/21/23 17:52 Mirtazapine (Mirtazapine Tab 15 Mg Tab) 30 mg PO HS YESSICA Stop: 12/25/23 21:59 Last Admin: 11/26/23 21:05 Dose: 30 mg Pantoprazole Sodium (Pantoprazole 40 Mg Tab) 40 mg PO QAM YESSICA Stop: 12/26/23 08:59 Last Admin: 11/27/23 08:56 Dose: 40 mg Sodium Chloride (Sodium Chloride 0.65% Na Soln 45 Ml ([place])) 1 - 2 sprays NA PRN PRN PRN Reason: Nasal Dryness/Congestion Stop: 12/21/23 17:52 Mental Health & Subst Abuse Tx Psychiatrist Name of Psychiatrist: Dr. Binu Ching Psychiatrist's Date Of Appointment With Psychiatric Provider: 12/02/23 Time of Appointment with Psychiatrist: 6:00 pm Therapist Name of Therapist: Nuvia Ching Therapist's Date of Therapist Appointment: 11/29/23 Time of Therapist Appointment: 11:00 Therapy Appointment Comment: Telehealth Appointment Police Dispatcher Name of Police Dispatcher: N/A Post Discharge Appointments Primary Care Physician Name Of Family Doctor/PCP: DR. HALL
--- NOTE | 2023-11-28 16:58 | Discharge Summary ---
Date of Service November 28, 2023 History of Present Illness Humberto presents for psychiatric admission for worsening anxiety, depression and SI in the context of multiple psychosocial stressors including recent of his father and work strain. His outpatient psychiatrist recommended that he come to the hospital for inpatient treatment as outpatient interventions have not provided enough support. He's been experiencing severe anxiety with ruminative worries and hasn't been able to work in the last week. Yesterday he went to work but notes "things I've been doing for 20 years I'm questioning my competency, I don't think I can do it, I don't feel capable". 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 Yesterday he felt so overwhelmed by his thoughts that he had to pace around the house "because it was the only thing I could do to keep from hurting myself". He's been experiencing SI. He stopped drinking alcohol in June and has relapsed twice since then. Since not drinking alcohol his anxiety has gotten worse and worse. He's been trialing a variety of medications with his PCP and now outpatient psychiatrist since September to try to treat his anxiety and depression. He endorses depressive symptoms including anhedonia, tearfulness, hopelessness, helplessness, decreased energy, decreased motivation, decreased concentration, decreased sleep, decreased appetite. He endorses anxiety symptoms including excessive worry, restlessness, fatigue, insomnia, decreased concentration. He hasn't experienced any panic attacks. He is currently prescribed psychiatric medications of Klonopin for insomnia (has been on this for >1 year) and Vistaril for insomnia, Abilify 15mg daily (denies any akathisia or increased anxiety with dose increase), escitalopram 5mg daily. Psychiatric ROS notable for no current nor history of symptoms of kevin, psychosis, OCD nor eating disorder. He does endorse history of self-harm in August by hitting his head with his thermos. Physical Exam Mental Examination Appearance: Well Groomed (appropriate) Eye Contact: Maintains Eye Contact Motor Behavior: Unremarkable Speech: Soft Mood: Calm Affect: Constricted Thought Process: Intact, Linear and Logical Thought Content: Intact and Linear Hallucinations: None Insight: Fair (to limited) Judgement: Fair (to limited) Vital Signs (Past 24 Hours) Last Vital Signs Temp 36.5 C 11/28/23 10:41 Pulse 78 11/28/23 10:41 Resp 16 11/28/23 10:41 BP 127/91 11/28/23 10:41 Pulse Ox 99 11/28/23 10:41 O2 Del Method Room Air 11/21/23 18:45 Principal Diagnosis MDD with anxious distress Psychiatric Data See daily stay summary. In short, safety was maintained and the patient was cooperative with care. Medication changes included increasing home escitalopram to 10mg daily and they tolerated this well. A family session was held and safety plan was completed prior to discharge. Day of Discharge Assessment Today the patient voices readiness for discharge. They note improvement in mood and deny thoughts to harm self or others. Thoughts remain organized and they are improved from admission. There is no evidence of psychosis. They agree to take mediations as prescribed and keep follow-up appointments. They are stable for discharge to outpatient level of care. Transition of Care Transition Of Care Record: was reviewed with the patient Advance Directives Advance Directives Information Provided: Yes Advance Directives: No Mental Health Advance Directive: No Advance Directives on File: No Living Will: No Power of Manager Environmental Health And Safety: No Advance Directives Reason:: Declines as Mental Health Visit. Suicide Risk Level Suicide Risk Level: Low (q15 min observation checks) Suicide Risk Level Comments: Risk Factors Assessment Male: Yes : Yes Do You Have Access To A Gun?: No (guns has already been removed from the home) Health Problems: No Mental Health Diagnoses: Yes Substance Use Disorders: Yes Previous Attempt: No Family History of Suicide: No Previous Psychiatric Hospitalization: No Hopelessness: Yes Protective Factors Assessment : Yes Employed: Yes Stable Relationships: Yes Supportive Family: Yes Good Rapport with Provider: Yes Discharge Data Lab Results 11/21/23 11/21/23 11/23/23 14:12 14:21 07:55 WBC 8.98 RBC 5.07 Hgb 15.3 Hct 44.7 MCV 88.2 MCH 30.2 MCHC 34.2 RDW Std Deviation 39.1 RDW Coeff of Talisha 12.1 Plt Count 292 MPV 9.7 Immature Gran % (Auto) 0.4 Neut % (Auto) 75.4 Lymph % (Auto) 16.1 Rich % (Auto) 7.1 Eos % (Auto) 0.6 Baso % (Auto) 0.4 Neut # (Auto) 6.76 H Lymph # (Auto) 1.45 Rich # (Auto) 0.64 H Eos # (Auto) 0.05 Baso # (Auto) 0.04 Immature Gran # (Auto) 0.04 Sodium 139 Potassium 3.9 Chloride 105 Carbon Dioxide 28 Anion Gap 6 BUN 21 Creatinine 1.10 Est Cr Clr Drug Dosing 105.4 Est GFR ( Amer) 96.8 Est GFR (Non-Af Amer) 83.5 BUN/Creatinine Ratio 19.1 Glucose 95 101 H Estimat Average Glucose 100 Hemoglobin A1c 5.1 Calcium 9.9 Total Bilirubin 0.6 AST 20 ALT 24 Alkaline Phosphatase 60 Total Protein 7.9 Albumin 4.9 Globulin 3.0 Albumin/Globulin Ratio 1.6 Triglycerides 131 Cholesterol 201 H LDL Cholesterol, Calc 129 VLDL Cholesterol, Calc 26 HDL Cholesterol 46 Cholesterol/HDL Ratio 4.4 TSH 1.344 Urine Color Yellow Urine Appearance Clear Urine pH 5.5 Ur Specific Kenner 1.007 Urine Protein Negative Urine Glucose (UA) Negative Urine Ketones Negative Urine Blood Negative Urine Nitrite Negative Urine Bilirubin Negative Urine Urobilinogen Negative Ur Leukocyte Esterase Negative Salicylates < 3.0 L Urine Opiates Screen Neg Ur Methadone, Qual Neg Urine Fentanyl Screen Neg Acetaminophen < 3 L Urine Barbiturates Neg Ur Phencyclidine (PCP) Neg U Amphetamin/Meth Scrn Neg MDMA (Ecstasy) Screen Neg U Benzodiazepines Scrn Neg Ur Cocaine Metabolite Neg U Marijuana (THC) Screen Neg Ethyl Alcohol mg/dL < 10.0 SARS-CoV-2, RNA, NAAT NEGATIVE Hospital Course (1) Recurrent severe major depressive disorder with anxiety: (2) SYEDA (generalized anxiety disorder): (3) Alcohol use disorder: (4) ADHD: Plan 11/27/2023: Continue current medications and treatment plan. 11/26/2023: Continue medications and treatment plan. 11/25/2023: Increase mirtazapine to 30mg HS. 11/24/2023: Continue current medications and tx plan. 11/23/2023: Continue current medications and tx plan 11/22/2023: The patient was admitted to the [facility] ([facility]) on q15 min checks (behavioral with suicide precautions) for safety. The patient will participate in group, recreational, and milieu therapies and will be offered additional individual and family sessions as clinically appropriate. -Continue prior to admission medications: * Abilify 15mg qd * Klonopin 0.5mg HS -Increase escitalopram to 10mg qd -start mirtazapine 15mg HS -start gabapentin 100mg TID prn for anxiety Mental Health & Subst Abuse Tx Psychiatrist Name of Psychiatrist: Dr. Binu Ching Psychiatrist's Date Of Appointment With Psychiatric Provider: 12/02/23 Time of Appointment with Psychiatrist: 6:00 pm Psychiatrist Release of Information: Obtained, Reviewed and Signed Therapist Name of Therapist: Nuvia Ching Therapist's Date of Therapist Appointment: 11/29/23 Time of Therapist Appointment: 11:00 Therapy Appointment Comment: Telehealth Appointment Therapist Release of Information: Obtained, Reviewed and Signed [facility] Name of [facility]: N/A Post Discharge Appointments Primary Care Physician Name Of Family Doctor/PCP: Dr. Murillo Primary Care Time of Appointment with PCP: Please follow up with PCP as needed. Provider Appointment Comment: [address] [place] [address] Primary Care Release of Information: Obtained, Reviewed and Signed Contact Information Discharge Discharge Address: [address] [place] [address] Discharge Plan Discharge Items Patient Disposition: Home - Self-Care Reason For Visit: MDD Discharge Diagnosis: Major Depressive Disorder, recurrent, with anxious distress Generalized Anxiety Disorder Alcohol use disorder, mild, in early remission Condition on Discharge: Fair Activity: Resume your previous activity Non-emergency contact: Primary Care Provider and Therapist Call non-emergency contact if: you have any medication questions and your symptoms worsen Follow-up/Referrals: Sophia Murillo DO [Primary Care Provider] - Diet: Regular Addtl Attending Provider Instructions: -Continue Escitalopram 10mg daily -Continue Mirtazapine 30mg at bedtime -Continue Aripiprazole 15mg daily -Continue Clonazepam 0.5mg at bedtime (attempt to taper off and discontinue with outpatient doctor) -Practice sleep hygiene -Abstain from alcohol abuse Pending Studies at Discharge: No Stand-Alone Forms: My [employer], Smoking Cessation Medications and DC Order Prescriptions: New clonazepam 0.5 mg Tablet 0.5 mg PO HS Qty: 30 0RF escitalopram oxalate 10 mg Tablet 10 mg PO QAM Qty: 30 2RF hydroxyzine HCl 50 mg tablet 50 mg PO HSZ PRN (Reason: anxiety, insomnia) Qty: 60 0RF mirtazapine 30 mg tablet 30 mg PO HS Qty: 30 2RF Continued cetirizine 10 mg tablet 10 mg PO QAM pantoprazole 40 mg tablet,delayed release (DR/EC) 40 mg PO QAM fluticasone propionate 50 mcg/actuation spray,suspension 1 spray Intranasal DAILY PRN (Reason: Congestion) dicyclomine 20 mg tablet 20 mg PO TID PRN (Reason: abdominal cramping) Qty: 20 0RF aripiprazole [Abilify] 15 mg Tablet PO DAILY Discontinued ondansetron 4 mg tablet,disintegrating 4 mg PO TID Qty: 20 0RF escitalopram oxalate 5 mg tablet PO DAILY clonazepam 0.5 mg PO PM Rx Instructions: nightly Discharge Orders: Discharge Order (Routine); Ordered 11/28/23 Ordered By: Eliot Rader Admission Data Admit Date/Time: 11/21/23 17:53 Attending Provider: Eliot Rader Admit Provider: Lissett Brooks Primary Care Provider: Sophia Murillo Other Interventions: Discharge Summary Assessment (RN) Last Done: 11/28/23 10:41 PSY Interdisciplinary Discharge Planning Last Done: 11/28/23 14:25 C[place] [address] D/C day mgmt > 30 min Patient Type Established History Expanded Problem Focused Exam Expanded Problem Focused Medical Decision Making Moderate Complexity Diagnoses Recurrent severe major depressive disorder with anxiety F33.2; F41.9 SYEDA (generalized anxiety disorder) F41.1 Alcohol use disorder F10.90 ADHD F90.9
== END 2023-11-28 13:39 | disposition home or self-care (01) | DRG 885 ==
LOC: ED 13:20 → SUATTDRO 17:53 → 3S 17:53
DX: Z63.4 Disappearance and death of family member; Z79.899 Other long term (current) drug therapy; Z56.6 Other physical and mental strain related to work; G47.00 Insomnia, unspecified; Z88.0 Allergy status to penicillin; Z81.8 Family history of other mental and behavioral disorders; F90.9 Attention-deficit hyperactivity disorder, unspecified type; F41.1 Generalized anxiety disorder; F10.11 Alcohol abuse, in remission; Z81.1 Family history of alcohol abuse and dependence; Z88.1 Allergy status to other antibiotic agents; R45.851 Suicidal ideations; F33.2 Major depressive disorder, recurrent severe without psychotic features; F43.10 Post-traumatic stress disorder, unspecified